=== PATIENT | female | born 1935 | race Caucasian/White ===

== ENCOUNTER 2019-06-19 12:51 | Emergency (ER) | payer MEDICARE, OTHER ==
[2019-06-19 13:45] VITALS: BP 173/71; PULSE 84
[2019-06-19] MEDS ORDERED: Sodium Chloride 0.9% 10 ML Syringe FLUSH PRN (13:47)
[2019-06-19] MEDS ORDERED: Ketorolac 15 MG/ML SDV IVPUSH ONE (13:48)
--- NOTE | 2019-06-19 14:46 | EDM.PDOC ---
ED HPI GENERAL MEDICAL PROBLEM - General Chief Complaint: Back Pain or Injury Stated Complaint: BACK PAIN Time Seen by Provider: 06/19/19 13:41 Source of Information: Reports: Patient, Family History Limitations: Reports: No Limitations - History of Present Illness INITIAL COMMENTS - FREE TEXT/NARRATIVE: The patient presents with low back pain. The pain is more on the right side. It started on Thursday and it is getting worse. She did not injure her back. She does have a history of low back pain with sciatica. She has no fever, chills, cough, chest pain, shortness of breath, abdominal pain, nausea or vomiting. She has no dysuria or hematuria. She has no history of kidney stones. She has no numbness or weakness in he legs. Onset: Gradual Duration: Day(s): Location: Reports: Back Quality: Reports: Sharp Severity: Moderate Improves with: Reports: Immobilization Worsens with: Reports: Movement Context: Denies: Trauma Associated Symptoms: Reports: No Other Symptoms Lower Back Pain Score (Numeric/FACES): 8 - Related Data Allergies Allergy/AdvReac Type Severity Reaction Status Date / Time crab Allergy Swelling Verified 06/19/19 13:45 Iodinated Contrast Media Allergy Itching Verified 06/19/19 13:45 [Iodinated Contrast Media - Oral and] pneumococcal vaccine Allergy Itching Verified 06/19/19 13:45 Home Meds: Home Meds traMADol [Ultram] 50 mg PO Q6H PRN #15 tab 06/19/19 [Rx] Past Medical History [employer]ICE [employer]OKER History: Reports: , Other (See Below) 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 Musculoskeletal History: Reports: Arthritis, Fibromyalgia - Past Surgical History HEENT Surgical History: Reports: Cataract Surgery, Other (See Below) Musculoskeletal Surgical History: Reports: Other (See Below) Social & Family History - Caffeine Use Caffeine Use: Reports: Coffee ED ROS GENERAL - Review of Systems Review Of Systems: See Below Constitutional: Reports: No Symptoms HEENT: Reports: No Symptoms Respiratory: Reports: No Symptoms Cardiovascular: Reports: No Symptoms Endocrine: Reports: No Symptoms GI/Abdominal: Reports: No Symptoms : Reports: No Symptoms Musculoskeletal: Reports: Back Pain Skin: Reports: No Symptoms Neurological: Reports: No Symptoms ED EXAM,LOWER BACK PAIN/INJURY - Physical Exam Exam: See Below Exam Limited By: No Limitations General Appearance: Alert, No Apparent Distress Ears: Normal External Exam Nose: Normal Inspection Head: Atraumatic, Normocephalic Neck: Normal Inspection, Supple, Non-Tender Respiratory/Chest: No Respiratory Distress, Lungs Clear, Normal Breath Sounds Cardiovascular: Regular Rate, Rhythm, No Edema, No Murmur GI/Abdominal: Soft, Non-Tender, No Organomegaly, No Mass Back Exam: Other (Pain upon palpation to the right lower back) Extremities: Normal Inspection Neurological: Alert, Normal Mood/Affect, No Motor/Sensory Deficits, Oriented x 3 Course - Vital Signs Last Recorded V/S: Last Vital Signs Temp 97.5 F 06/19/19 13:40 Pulse 84 06/19/19 13:40 Resp 18 06/19/19 13:40 BP 173/71 H 06/19/19 13:40 Pulse Ox 97 06/19/19 13:40 - Orders/Labs/Meds Orders: Active Orders 24 hr Category Date Time Status Peripheral IV Care [RC] . DIRECTED Care 06/19/19 13:47 Active Sodium Chloride 0.9% [Saline Flush] Med 06/19/19 13:47 Active 10 ml FLUSH ASDIRECTED PRN Peripheral IV Insertion Adult [OM.PC] Stat Oth 06/19/19 13:47 Ordered Medication Orders Sodium Chloride (Saline Flush) 10 ml FLUSH ASDIRECTED PRN PRN Reason: Keep Vein Open Last Admin: 06/19/19 14:57 Dose: 10 ml Labs: Laboratory Tests 06/19/19 06/19/19 06/19/19 Range/Units 14:24 15:00 15:00 WBC 9.58 (3.98-10.04) K/mm3 RBC 3.46 L (3.98-5.22) M/mm3 Hgb 12.0 (11.2-15.7) gm/dl Hct 36.7 (34.1-44.9) % MCV 106.1 H D (79.4-94.8) fl MCH 34.7 H (25.6-32.2) pg MCHC 32.7 (32.2-35.5) g/dl RDW Std Deviation 47.4 H (36.4-46.3) fL Plt Count 294 (182-369) K/mm3 MPV 9.7 (9.4-12.3) fl Neut % (Auto) 67.9 (34.0-71.1) % Lymph % (Auto) 18.7 L (19.3-51.7) % [place] % (Auto) 11.6 (4.7-12.5) % Eos % (Auto) 1.4 (0.7-5.8) Baso % (Auto) 0.2 (0.1-1.2) % Neut # (Auto) 6.51 H (1.56-6.13) K/mm3 Lymph # (Auto) 1.79 (1.18-3.74) K/mm3 [place] # (Auto) 1.11 H (0.24-0.36) K/mm3 Eos # (Auto) 0.13 (0.04-0.36) K/mm3 Baso # (Auto) 0.02 (0.01-0.08) K/mm3 Manual Slide Review Abnormal smear Sodium 137 (136-145) mEq/L Potassium 4.4 (3.5-5.1) mEq/L Chloride 104 (98-107) mEq/L Carbon Dioxide 26 (21-32) mEq/L Anion Gap 11.4 (5-15) BUN 23 H (7-18) mg/dL Creatinine 1.2 H (0.55-1.02) mg/dL Est Cr Clr Drug Dosing 27.98 mL/min Estimated GFR (MDRD) 43 (>60) mL/min BUN/Creatinine Ratio 19.2 H (14-18) Glucose 107 (83-115) mg/dL Calcium 10.2 H (8.5-10.1) mg/dL Total Bilirubin 0.4 (0.2-1.0) mg/dL AST 22 (15-37) U/L ALT 25 (14-59) U/L Alkaline Phosphatase 87 (46-116) U/L Total Protein 7.7 (6.4-8.2) g/dl Albumin 3.5 (3.4-5.0) g/dl Globulin 4.2 gm/dL Albumin/Globulin Ratio 0.8 L (1-2) Urine Color Light yellow (Yellow) Urine Appearance Clear (Clear) Urine pH 6.5 (5.0-8.0) Ur Specific [place] 1.015 (1.005-1.030) Urine Protein Negative (Negative) Urine Glucose (UA) Negative (Negative) Urine Ketones Negative (Negative) Urine Occult Blood Negative (Negative) Urine Nitrite Negative (Negative) Urine Bilirubin Negative (Negative) Urine Urobilinogen 0.2 (0.2-1.0) Ur Leukocyte Esterase Negative (Negative) Urine RBC Not seen (0-5) /hpf Urine WBC Not seen (0-5) /hpf Ur Squamous Epith Cells Not seen (0-5) /hpf Urine Bacteria Rare (FEW) /hpf Urine Mucus Rare (FEW) /hpf Meds: Medications Generic Name Dose Route Start Last Admin Trade Name Freq PRN Reason Stop Dose Admin Sodium Chloride 10 ml 06/19/19 13:47 06/19/19 14:57 Saline Flush FLUSH 10 ml ASDIRECTED PRN Administration Keep Vein Open Discontinued Medications Generic Name Dose Route Start Last Admin Trade Name Freq PRN Reason Stop Dose Admin Ketorolac Tromethamine 15 mg 06/19/19 13:48 06/19/19 14:57 Toradol IVPUSH 06/19/19 13:49 15 mg ONETIME ONE Administration - Re-Assessments/Exams Free Text/Narrative Re-Assessment/Exam: 06/19/19 14:46 I have ordered an IV saline lock, toradol 15mg IV, labs, UA and a CT of her lumbar spine. 06/19/19 16:12 Her CBC looks good. Her creatinine is slightly elevated at 1.2. Her UA shows no UTI or blood. Her CT shows degenerative changes. Mild endplate concavities of T12 without definite acute fracture line. Nothing acute is definitely appreciated. She feels better. I will discharge her home with some ultram as needed. Departure - Departure Time of Disposition: 16:15 Disposition: Home, Self-Care 01 Condition: Good Clinical Impression: Low back pain Qualifiers: Chronicity: acute Back pain laterality: right Sciatica presence: without sciatica Qualified Code(s): M54.5 - Low back pain Thoracic spine fracture Qualifiers: Encounter type: initial encounter Thoracic vertebra fracture level: T12 Fracture type: closed Fracture morphology: other fracture Qualified Code(s): S22.088A - Other fracture of T11-T12 vertebra, initial encounter for closed fracture - Discharge Information *PRESCRIPTION DRUG MONITORING PROGRAM REVIEWED*: No *COPY OF PRESCRIPTION DRUG MONITORING REPORT IN PATIENT JAQUAN: No Prescriptions: traMADol [Ultram] 50 mg PO Q6H PRN #15 tab PRN Reason: Pain Referrals: Octavia Bowman MD [Primary Care Provider] - 1 Week Forms: ED Department Discharge Additional Instructions: Take tylenol as needed for pain. If that does not help, try the ultram 1 pill every 6 hours as needed for pain. It appears you have a mild old compression fracture at T12. Follow up with Dr Bowman and talk about getting an MRI to better characterize the fracture. Please return if you are worse. Sepsis Event Note - Evaluation Sepsis Screening Result: No Definite Risk - Focused Exam Vital Signs: Vital Signs Temp Pulse Resp BP Pulse Ox 06/19/19 13:40 97.5 F 84 18 173/71 H 97 Date Exam was Performed: 06/19/19 Time Exam was Performed: 16:12 - My Orders Last 24 Hours: My Active Orders 06/19/19 13:47 Peripheral IV Care [RC] . DIRECTED Sodium Chloride 0.9% [Saline Flush] 10 ml FLUSH ASDIRECTED PRN Peripheral IV Insertion Adult [OM.PC] Stat - Assessment/Plan Last 24 Hours: My Active Orders 06/19/19 13:47 Peripheral IV Care [RC] . DIRECTED Sodium Chloride 0.9% [Saline Flush] 10 ml FLUSH ASDIRECTED PRN Peripheral IV Insertion Adult [OM.PC] Stat
--- NOTE | 2019-06-19 15:56 | CT ---
CT lumbar spine Technique: Multiple axial sections were obtained from the bottom of T11 inferiorly through the mid to lower sacrum. Reconstructed sagittal and coronal images were reviewed. Comparison: No prior lumbar spine imaging is available. Findings: T11-T12: Posterior disc is preserved. Degenerative apophyseal change is noted. No central canal stenosis is seen. Neural foramina appear to be patent. T12-L1: Endplate concavities are noted of T12 which are both superior and inferior. No definite acute fracture line is appreciated. Disc is slightly narrowed. Posterior disc is preserved. No central canal stenosis or neural foraminal stenosis is seen. Degenerative apophyseal change is seen. L1-2: Posterior disc maintains a concave margin. Slight posterior disc space narrowing is seen. No central canal stenosis or neural foraminal stenosis is seen. Degenerative apophyseal change is seen. L2-3: Slight circumferential disc bulge is seen. Posterior disc maintains a concave margin. Mild degenerative apophyseal change is noted. No central canal stenosis or neural foraminal stenosis is seen. L3-L4: Slight limbus type vertebra is noted off the anterior superior endplate of L3 which is old. Minimal circumferential disc bulge is seen. Posterior disc maintains mostly a planar margin. Moderate degenerative apophyseal change is noted. No central canal stenosis or neural foraminal stenosis is seen. L4-L5: Severe disc space narrowing is noted with vacuum disc phenomena. Minimal spondylolisthesis is seen measuring 5 mm. Severe degenerative apophyseal change is seen. Mild deformity is noted of the thecal sac due to degenerative change projecting into the central canal from the apophyseal joints on both sides. No central canal stenosis is otherwise seen. Neural foramina are felt to be patent where the nerve roots exit. L5-S1: Severe degenerative apophyseal change is noted. Minimal spondylolisthesis by several millimeters. No central canal stenosis or neural foraminal stenosis is seen. Bony structures are osteopenic. No acute fracture is appreciated. Scoliosis is noted. Impression: 1. Degenerative change as noted above. 2. Mild endplate concavities of T12 without definite acute fracture line. 3. Nothing acute is definitely appreciated. Diagnostic code #3 This report was dictated in [place] Standard Time
== END 2019-06-19 16:35 | disposition home or self-care (01) ==
LOC: JD.ED 12:51
DX: M84.48XA Pathological fracture, other site, initial encounter for fracture (principal); M54.5 Low back pain; M19.90 Unspecified osteoarthritis, unspecified site; Z91.013 Allergy to seafood; Z91.041 Radiographic dye allergy status; Z88.7 Allergy status to serum and vaccine
CPT/HCPCS: 36415; 72131; 80053; 81001; 85025; 96374; 99284; J1885

== ENCOUNTER 2020-08-06 10:44 | Inpatient (IN) | payer MEDICARE, OTHER ==
[2020-08-06] MEDS ORDERED: Sodium Chloride 0.9% 1,000 ML IV STA (11:11)
[2020-08-06] MEDS ORDERED: Ondansetron 4 MG/2 ML SDV IVPUSH ONE (11:11)
[2020-08-06] MEDS ORDERED: cefTRIAXone 2 GM in Sodium Chloride 0.9% 100 ML IV ONE (11:13)
--- NOTE | 2020-08-06 11:14 | EDM.PDOC ---
<Lilly Peters - Last Filed: 08/06/20 13:47> ED HPI GENERAL MEDICAL PROBLEM - General Chief Complaint: Genitourinary Problem Stated Complaint: [facility] Time Seen by Provider: 08/06/20 10:47 Source of Information: Reports: Patient History Limitations: Reports: No Limitations - History of Present Illness INITIAL COMMENTS - FREE TEXT/NARRATIVE: Satya is a pleasant 85 year old female who presents to the ED with complaints of a urinary tract infection and weakness. She states she was diagnosed with a UTI on Thursday and was prescribed Cephalexin. She states this antibiotic makes her nauseated. She also complains of decreased appetite, dehydration, weakness and fatigue. She states she hasn't eaten anything since yesterday at around noon. She states she does have some residual UTI symptoms but they have greatly decreased since starting the antibiotic. She also admits to having chronic diarrhea. She denies any recent fever, chills, dyspnea, cough. Abdominal Pain Score (Numeric/FACES): 8 - Related Data Allergies Allergy/AdvReac Type Severity Reaction Status Date / Time crab Allergy Swelling Verified 08/06/20 10:54 Iodinated Contrast Media Allergy Itching Verified 08/06/20 10:54 [Iodinated Contrast Media - Oral and] pneumococcal vaccine Allergy Itching Verified 08/06/20 10:54 Home Meds: Home Meds Acetaminophen/Codeine [Tylenol with Codeine No.3 300MG/30MG] 1 tab PO Q8HR PRN 08/06/20 [History] Amitriptyline [Elavil] 25 mg PO BEDTIME 08/06/20 [History] Aspirin [Harry Chewable Aspirin] 81 mg PO DAILY 08/06/20 [History] Calcitonin ([place]) [Miacalcin Nasal [place]] 1 spray SARAH DAILY 08/06/20 [History] Cholecalciferol (Vitamin D3) [Vitamin D3] 1,000 unit PO DAILY 08/06/20 [History] Cholestyramine (With Sugar) [Questran Powder] 4 gm PO DAILY 08/06/20 [History] Dextran 70/Hypromellose [Artificial Tears] 1 - 2 drop EYEBOTH ASDIRECTED PRN 08/06/20 [History] Ezetimibe 10 mg PO DAILY 08/06/20 [History] Famotidine 20 mg PO DAILY 08/06/20 [History] Formula Liquid 1 dose PO ASDIRECTED 08/06/20 [History] Iron Polysaccharides-Vitamin C 1 cap PO DAILY 08/06/20 [History] Levothyroxine [Synthroid] 50 - 100 mcg PO ASDIRECTED 08/06/20 [History] Metoprolol Succinate [Toprol XL] 25 mg PO DAILY 08/06/20 [History] Multivitamin [Daily-Servando] 1 tab PO DAILY 08/06/20 [History] Olmesartan Medoxomil [Benicar] 20 mg PO DAILY 08/06/20 [History] Ondansetron [Zofran ODT] 4 mg PO DAILY 08/06/20 [History] Pravastatin [Pravachol] 10 mg PO BEDTIME 08/06/20 [History] Prednisolone Acetate/Pf [Prednisolone Acet 1% Eye Drop] 1 drop EYEBOTH ASDIRECTED 08/06/20 [History] cephALEXin [Cephalexin] 500 mg PO BID 08/06/20 [History] cycloSPORINE [Restasis Multidose] 1 drop EYEBOTH BID 08/06/20 [History] hydroCHLOROthiazide [Hydrochlorothiazide] 25 mg PO DAILY 08/06/20 [History] valACYclovir [Valtrex] 1,000 mg PO DAILY 08/06/20 [History] Past Medical History HEENT History: Reports: Cataract Cardiovascular History: Reports: High Cholesterol, Hypertension 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: , Other (See Below) Other BAND INSTRUMENT REPAIRER History: hysterectomy Musculoskeletal History: Reports: Arthritis, Fibromyalgia - Infectious Disease History Infectious Disease History: Reports: Chicken Pox, Measles, Shingles - Past Surgical History HEENT Surgical History: Reports: Cataract Surgery, Other (See Below) Other HEENT Surgeries/Procedures: 4 corneal transplants GI Surgical History: Reports: Appendectomy, Colon, Colonoscopy Female Surgical History: Reports: Hysterectomy Neurological Surgical History: Reports: C-Spine Musculoskeletal Surgical History: Reports: Other (See Below) Other Musculoskeletal Surgeries/Procedures:: neck fusion Social & Family History - Caffeine Use Caffeine Use: Reports: Coffee ED ROS GENERAL - Review of Systems Review Of Systems: Comprehensive ROS is negative, except as noted in HPI. Constitutional: Reports: Weakness, Decreased Appetite HEENT: Reports: No Symptoms Respiratory: Reports: No Symptoms Cardiovascular: Reports: No Symptoms Endocrine: Reports: No Symptoms GI/Abdominal: Reports: Diarrhea (Chronic), Nausea : Reports: Dysuria, Frequency, Pain Musculoskeletal: Reports: No Symptoms Skin: Reports: No Symptoms Neurological: Reports: Dizziness Psychiatric: Reports: No Symptoms Hematologic/Lymphatic: Reports: No Symptoms Immunologic: Reports: No Symptoms ED EXAM, RENAL/ - Physical Exam Exam: See Below Exam Limited By: No Limitations General Appearance: Alert, WD/WN, No Apparent Distress Head: Atraumatic, Normocephalic Neck: Normal Inspection, Supple, Non-Tender, Full Range of Motion Respiratory/Chest: No Respiratory Distress, Lungs Clear, Normal Breath Sounds, No Accessory Muscle Use, Chest Non-Tender Cardiovascular: Normal Peripheral Pulses, Regular Rate, Rhythm, No Edema, No Gallop, No Murmur GI/Abdominal: Normal Bowel Sounds, Soft, Non-Tender, No Distention, No Abnormal Bruit, No Mass Back Exam: Normal Inspection, Full Range of Motion, NT Extremities: Normal Inspection, Normal Range of Motion, Non-Tender, Normal Capillary Refill, No Pedal Edema Neurological: Alert, Oriented, CN II-XII Intact, Normal Cognition, Normal Gait, No Motor/Sensory Deficits Psychiatric: Normal Affect, Normal Mood Skin Exam: Warm, Dry, Intact, Normal Color, No Rash Lymphatic: No Adenopathy Course - Re-Assessments/Exams Free Text/Narrative Re-Assessment/Exam: 08/06/20 11:16 Satya is an 85 year old female presenting to the ED with complains of UTI and weakness. She was seen at the walk in clinic on Thursday due to increased weakness, fatigue and UTI symptoms, and was given Cephalexin. Her UTI symptoms have greatly improved. She complains of dehydration and states she has chronic diarrhea. We will get routine labs, UA, blood cultures x2, PT/INR, lactic acid, lipase, BNP, Rocephin and Zofran. Her vitals are all within normal limits with HR being 91, BP being 132/70 and O2 being 100% on RA. Departure - Departure Disposition: Refer to Observation Clinical Impression: Nausea, Dehydration, Renal insufficiency - Discharge Information Sepsis Event Note (ED) - Evaluation Sepsis Screening Result: No Definite Risk <Fernando Pinedo - Last Filed: 08/06/20 14:02> Course - Vital Signs Last Recorded V/S: Last Vital Signs Temp 97.6 F 08/06/20 10:49 Pulse 91 08/06/20 13:30 Resp 19 08/06/20 13:30 BP 146/61 H 08/06/20 13:30 Pulse Ox 100 08/06/20 13:30 - Orders/Labs/Meds Orders: Active Orders 24 hr Category Date Time Status Peripheral IV Care [RC] . DIRECTED Care 08/06/20 11:11 Active CULTURE BLOOD [BC] Stat Lab 08/06/20 12:00 Received CULTURE BLOOD [BC] Stat Lab 08/06/20 12:05 Received Sodium Chloride 0.9% [Saline Flush] Med 08/06/20 11:11 Active 10 ml FLUSH ASDIRECTED PRN Blood Culture x2 Reflex Set [OM.PC] Stat Oth 08/06/20 11:13 Ordered ED Antiemetic Medication Reflex [OM.PC] Stat Oth 08/06/20 11:12 Ordered Peripheral IV Insertion Adult [OM.PC] Stat Ot 08/06/20 11:11 Ordered Medication Orders Sodium Chloride (Saline Flush) 10 ml FLUSH ASDIRECTED PRN PRN Reason: Keep Vein Open Last Admin: 08/06/20 11:19 Dose: 10 ml Documented by: LUIS Labs: Laboratory Tests 08/06/20 08/06/20 08/06/20 Range/Units 11:23 11:23 11:23 WBC 14.31 H (3.98-10.04) K/mm3 RBC 3.19 L (3.98-5.22) M/mm3 Hgb 11.3 (11.2-15.7) gm/dl Hct 34.5 (34.1-44.9) % MCV 108.2 H (79.4-94.8) fl MCH 35.4 H (25.6-32.2) pg MCHC 32.8 (32.2-35.5) g/dl RDW Std Deviation 51.1 H (36.4-46.3) fL Plt Count 415 H D (182-369) K/mm3 MPV 9.9 (9.4-12.3) fl Neut % (Auto) 76.2 H (34.0-71.1) % Lymph % (Auto) 14.6 L (19.3-51.7) % [place] % (Auto) 7.4 (4.7-12.5) % Eos % (Auto) 0.4 L (0.7-5.8) Baso % (Auto) 0.1 (0.1-1.2) % Neut # (Auto) 10.90 H (1.56-6.13) K/mm3 Lymph # (Auto) 2.09 (1.18-3.74) K/mm3 [place] # (Auto) 1.06 H (0.24-0.36) K/mm3 Eos # (Auto) 0.06 (0.04-0.36) K/mm3 Baso # (Auto) 0.02 (0.01-0.08) K/mm3 Manual Slide Review Abnormal smear PT 10.9 (9.7-12.0) SECONDS INR 1.02 Sodium 139 (136-145) mEq/L Potassium 4.1 (3.5-5.1) mEq/L Chloride 105 (98-107) mEq/L Carbon Dioxide 18 L (21-32) mEq/L Anion Gap 20.1 H (5-15) BUN 51 H D (7-18) mg/dL Creatinine 1.8 H (0.55-1.02) mg/dL Est Cr Clr Drug Dosing 16.06 mL/min Estimated GFR (MDRD) 27 (>60) mL/min BUN/Creatinine Ratio 28.3 H (14-18) Glucose 132 H (83-115) mg/dL Lactic Acid (0.4-2.0) mmol/L Calcium 10.2 H (8.5-10.1) mg/dL Total Bilirubin 0.4 (0.2-1.0) mg/dL AST 49 H (15-37) U/L ALT 108 H (14-59) U/L Alkaline Phosphatase 147 H (46-116) U/L NT-Pro-B Natriuret Pep (0-450) pg/mL Total Protein 7.7 (6.4-8.2) g/dl Albumin 3.3 L (3.4-5.0) g/dl Globulin 4.4 gm/dL Albumin/Globulin Ratio 0.8 L (1-2) Lipase 186 (73-393) U/L Urine Color (Yellow) Urine Appearance (Clear) Urine pH (5.0-8.0) Ur Specific [place] (1.005-1.030) Urine Protein (Negative) Urine Glucose (UA) (Negative) Urine Ketones (Negative) Urine Occult Blood (Negative) Urine Nitrite (Negative) Urine Bilirubin (Negative) Urine Urobilinogen (0.2-1.0) Ur Leukocyte Esterase (Negative) U Hyaline Cast (Auto) (0-5) /lpf Urine RBC (0-5) /hpf Urine WBC (0-5) /hpf Ur Epithelial Cells (0-5) /hpf Urine Bacteria (FEW) /hpf Urine Mucus (FEW) /hpf SARS-CoV-2 RNA (SONJA) (NEGATIVE) 08/06/20 08/06/20 08/06/20 Range/Units 11:23 12:05 12:27 WBC (3.98-10.04) K/mm3 RBC (3.98-5.22) M/mm3 Hgb (11.2-15.7) gm/dl Hct (34.1-44.9) % MCV (79.4-94.8) fl MCH (25.6-32.2) pg MCHC (32.2-35.5) g/dl RDW Std Deviation (36.4-46.3) fL Plt Count (182-369) K/mm3 MPV (9.4-12.3) fl Neut % (Auto) (34.0-71.1) % Lymph % (Auto) (19.3-51.7) % [place] % (Auto) (4.7-12.5) % Eos % (Auto) (0.7-5.8) Baso % (Auto) (0.1-1.2) % Neut # (Auto) (1.56-6.13) K/mm3 Lymph # (Auto) (1.18-3.74) K/mm3 [place] # (Auto) (0.24-0.36) K/mm3 Eos # (Auto) (0.04-0.36) K/mm3 Baso # (Auto) (0.01-0.08) K/mm3 Manual Slide Review PT (9.7-12.0) SECONDS INR Sodium (136-145) mEq/L Potassium (3.5-5.1) mEq/L Chloride (98-107) mEq/L Carbon Dioxide (21-32) mEq/L Anion Gap (5-15) BUN (7-18) mg/dL Creatinine (0.55-1.02) mg/dL Est Cr Clr Drug Dosing mL/min Estimated GFR (MDRD) (>60) mL/min BUN/Creatinine Ratio (14-18) Glucose (83-115) mg/dL Lactic Acid 1.0 (0.4-2.0) mmol/L Calcium (8.5-10.1) mg/dL Total Bilirubin (0.2-1.0) mg/dL AST (15-37) U/L ALT (14-59) U/L Alkaline Phosphatase (46-116) U/L NT-Pro-B Natriuret Pep 1268 H (0-450) pg/mL Total Protein (6.4-8.2) g/dl Albumin (3.4-5.0) g/dl Globulin gm/dL Albumin/Globulin Ratio (1-2) Lipase (73-393) U/L Urine Color Yellow (Yellow) Urine Appearance Clear (Clear) Urine pH 6.0 (5.0-8.0) Ur Specific [place] 1.025 (1.005-1.030) Urine Protein Trace H (Negative) Urine Glucose (UA) Negative (Negative) Urine Ketones Negative (Negative) Urine Occult Blood Negative (Negative) Urine Nitrite Negative (Negative) Urine Bilirubin Negative (Negative) Urine Urobilinogen 0.2 (0.2-1.0) Ur Leukocyte Esterase Negative (Negative) U Hyaline Cast (Auto) 0-5 (0-5) /lpf Urine RBC Not seen (0-5) /hpf Urine WBC 0-5 (0-5) /hpf Ur Epithelial Cells Not seen (0-5) /hpf Urine Bacteria Rare (FEW) /hpf Urine Mucus Rare (FEW) /hpf SARS-CoV-2 RNA (SONJA) (NEGATIVE) 08/06/20 Range/Units 12:27 WBC (3.98-10.04) K/mm3 RBC (3.98-5.22) M/mm3 Hgb (11.2-15.7) gm/dl Hct (34.1-44.9) % MCV (79.4-94.8) fl MCH (25.6-32.2) pg MCHC (32.2-35.5) g/dl RDW Std Deviation (36.4-46.3) fL Plt Count (182-369) K/mm3 MPV (9.4-12.3) fl Neut % (Auto) (34.0-71.1) % Lymph % (Auto) (19.3-51.7) % [place] % (Auto) (4.7-12.5) % Eos % (Auto) (0.7-5.8) Baso % (Auto) (0.1-1.2) % Neut # (Auto) (1.56-6.13) K/mm3 Lymph # (Auto) (1.18-3.74) K/mm3 [place] # (Auto) (0.24-0.36) K/mm3 Eos # (Auto) (0.04-0.36) K/mm3 Baso # (Auto) (0.01-0.08) K/mm3 Manual Slide Review PT (9.7-12.0) SECONDS INR Sodium (136-145) mEq/L Potassium (3.5-5.1) mEq/L Chloride (98-107) mEq/L Carbon Dioxide (21-32) mEq/L Anion Gap (5-15) BUN (7-18) mg/dL Creatinine (0.55-1.02) mg/dL Est Cr Clr Drug Dosing mL/min Estimated GFR (MDRD) (>60) mL/min BUN/Creatinine Ratio (14-18) Glucose (83-115) mg/dL Lactic Acid (0.4-2.0) mmol/L Calcium (8.5-10.1) mg/dL Total Bilirubin (0.2-1.0) mg/dL AST (15-37) U/L ALT (14-59) U/L Alkaline Phosphatase (46-116) U/L NT-Pro-B Natriuret Pep (0-450) pg/mL Total Protein (6.4-8.2) g/dl Albumin (3.4-5.0) g/dl Globulin gm/dL Albumin/Globulin Ratio (1-2) Lipase (73-393) U/L Urine Color (Yellow) Urine Appearance (Clear) Urine pH (5.0-8.0) Ur Specific [place] (1.005-1.030) Urine Protein (Negative) Urine Glucose (UA) (Negative) Urine Ketones (Negative) Urine Occult Blood (Negative) Urine Nitrite (Negative) Urine Bilirubin (Negative) Urine Urobilinogen (0.2-1.0) Ur Leukocyte Esterase (Negative) U Hyaline Cast (Auto) (0-5) /lpf Urine RBC (0-5) /hpf Urine WBC (0-5) /hpf Ur Epithelial Cells (0-5) /hpf Urine Bacteria (FEW) /hpf Urine Mucus (FEW) /hpf SARS-CoV-2 RNA (SONJA) Negative (NEGATIVE) Meds: Medications Generic Name Dose Route Start Last Admin Trade Name Freq PRN Reason Stop Dose Admin Sodium Chloride 10 ml 08/06/20 11:11 08/06/20 11:19 Saline Flush FLUSH 10 ml ASDIRECTED PRN Administration Keep Vein Open Discontinued Medications Generic Name Dose Route Start Last Admin Trade Name Freq PRN Reason Stop Dose Admin Ceftriaxone Sodium 2 gm/ 100 mls @ 200 mls/hr 08/06/20 11:13 08/06/20 12:12 Sodium Chloride IV 08/06/20 11:42 200 mls/hr ONETIME ONE Administration Sodium Chloride 1,000 mls @ 1,000 mls/hr 08/06/20 11:11 08/06/20 11:30 Normal Saline IV 08/06/20 12:10 1,000 mls/hr .BOLUS STA Administration Ondansetron HCl 4 mg 08/06/20 11:11 08/06/20 11:30 Zofran IVPUSH 08/06/20 11:12 4 mg ONETIME ONE Administration - Re-Assessments/Exams Free Text/Narrative Re-Assessment/Exam: 08/06/20 13:48 I examined the patient myself and I agree with Lilly's assessment and plan. I ordered an IV NS 1L bolus, labs, UA, blood cultures and COVID 19 test. Her WBC was elevated at 14.31. Her creatinine was 1.8. That is elevated from her baseline of 1.2. Her glucose is 132. Her lactic acid is normal at 1. Her AST was elevated at 49. Her ALT was elevated at 108. Her alk phos was elevated at 141. Her BNP was elevated at 1268. Her lipase is normal. Her COVID 19 is negative. Her UA shows no UTI anymore. I feel she is dehydrated from not being able to eat the past couple of day. I called Dr Gustafson and he agreed to the admission. Departure - Departure Time of Disposition: 14:05 Condition: Good Sepsis Event Note (ED) - Focused Exam Vital Signs: Vital Signs Temp Pulse Resp BP Pulse Ox 08/06/20 10:49 97.6 F 97 18 154/69 H 98 - My Orders Last 24 Hours: My Active Orders 08/06/20 11:11 Peripheral IV Care [RC] . DIRECTED Sodium Chloride 0.9% [Saline Flush] 10 ml FLUSH ASDIRECTED PRN Peripheral IV Insertion Adult [OM.PC] Stat 08/06/20 11:12 ED Antiemetic Medication Reflex [OM.PC] Stat 08/06/20 11:13 Blood Culture x2 Reflex Set [OM.PC] Stat 08/06/20 12:00 CULTURE BLOOD [BC] Stat 08/06/20 12:05 CULTURE BLOOD [BC] Stat - Assessment/Plan Last 24 Hours: My Active Orders 08/06/20 11:11 Peripheral IV Care [RC] . DIRECTED Sodium Chloride 0.9% [Saline Flush] 10 ml FLUSH ASDIRECTED PRN Peripheral IV Insertion Adult [OM.PC] Stat 08/06/20 11:12 ED Antiemetic Medication Reflex [OM.PC] Stat 08/06/20 11:13 Blood Culture x2 Reflex Set [OM.PC] Stat 08/06/20 12:00 CULTURE BLOOD [BC] Stat 08/06/20 12:05 CULTURE BLOOD [BC] Stat
[2020-08-06] MEDS: Sodium Chloride 0.9% 10 ML Syringe FLUSH PRN (11:19)
--- NOTE | 2020-08-06 13:34 | PCM.HP.2 ---
H&P History of Present Illness - General Date of Service: 08/06/20 Source of Information: Patient, Old Records, Provider, RN, RN Notes Reviewed History Limitations: Reports: No Limitations - History of Present Illness Initial Comments - Free Text/Narative: This is an 85-year-old female who presents to ED via [facility] on 08/06/2020 with complaints of urinary tract infection weakness. She reports she was diagnosed with a UTI on Thursday at the walk-in clinic and was prescribed cephalexin. She states she has been nauseous since then with decreased appetite, dehydration, weakness, and fatigue. She reports no p.o. intake since yesterday around noon. She reports she does have some residual UTI symptoms but they have greatly improved since starting her antibiotic. She also reports she has chronic diarrhea. She denies any recent fever, dyspnea, or cough. In the ED temp was 97.6 Fahrenheit. Pulse 97. Respirations 18. Blood pressure 154/69. Pulse ox 98%. Labs were obtained showing a WBC of 14.31. Hemoglobin of 11.3. Platelets of 415,000. Neutrophils are elevated at 10.90. INR was 1.02. Sodium 139. Potassium 4.1. Chloride 105. Carbon dioxide was low at 18. Anion gap was 20.1. BUN is 51. Creatinine 1.8. GFR was 27. Glucose 132. Lactic acid 1.0. Calcium 10.2. AST was 49, ALT 108, alkaline phosphatase 147. proBNP was 1268. Albumin was 3.3. Lipase was 186. UA was obtained and was negative however trace protein was noted. She was started on 2 g of IV Rocephin and given a 1 L fluid bolus. Also given Zofran for nausea. Blood cultures were obtained and were pending. SARS-CoV-2 RNA screen was negative. He carries a history of HLD, hypertension, arthritis, fibromyalgia. Primary care provider is Dr. Bowman. She subsequently admitted observation status for dehydration secondary to antibiotic intolerance and UTI. Abdominal Pain Score (Numeric/FACES): 8 - Related Data Allergies/Adverse Reactions: Allergies Allergy/AdvReac Type Severity Reaction Status Date / Time crab Allergy Swelling Verified 08/06/20 10:54 Iodinated Contrast Media Allergy Itching Verified 08/06/20 10:54 [Iodinated Contrast Media - Oral and] pneumococcal vaccine Allergy Itching Verified 08/06/20 10:54 Home Medications: Home Meds Acetaminophen/Codeine [Tylenol with Codeine No.3 300MG/30MG] 1 tab PO Q8HR PRN 08/06/20 [History] Amitriptyline [Elavil] 25 mg PO BEDTIME 08/06/20 [History] Aspirin [Harry Chewable Aspirin] 81 mg PO DAILY 08/06/20 [History] Calcitonin ([place]) [Miacalcin Nasal [place]] 1 spray SARAH DAILY 08/06/20 [History] Cholecalciferol (Vitamin D3) [Vitamin D3] 1,000 unit PO DAILY 08/06/20 [History] Cholestyramine (With Sugar) [Questran Powder] 4 gm PO DAILY 08/06/20 [History] Dextran 70/Hypromellose [Artificial Tears] 1 - 2 drop EYEBOTH ASDIRECTED PRN 07/26 [History] Ezetimibe 10 mg PO DAILY 08/06/20 [History] Famotidine 20 mg PO DAILY 08/06/20 [History] Formula Liquid 1 dose PO ASDIRECTED 08/06/20 [History] Iron Polysaccharides-Vitamin C 1 cap PO DAILY 08/06/20 [History] Levothyroxine [Synthroid] 50 - 100 mcg PO ASDIRECTED 08/06/20 [History] Metoprolol Succinate [Toprol XL] 25 mg PO DAILY 08/06/20 [History] Multivitamin [Daily-Servando] 1 tab PO DAILY 08/06/20 [History] Olmesartan Medoxomil [Benicar] 20 mg PO DAILY 08/06/20 [History] Ondansetron [Zofran ODT] 4 mg PO DAILY 08/06/20 [History] Pravastatin [Pravachol] 10 mg PO BEDTIME 08/06/20 [History] Prednisolone Acetate/Pf [Prednisolone Acet 1% Eye Drop] 1 drop EYEBOTH ASDIRECTED 08/06/20 [History] cephALEXin [Cephalexin] 500 mg PO BID 08/06/20 [History] cycloSPORINE [Restasis Multidose] 1 drop EYEBOTH BID 08/06/20 [History] hydroCHLOROthiazide [Hydrochlorothiazide] 25 mg PO DAILY 08/06/20 [History] valACYclovir [Valtrex] 1,000 mg PO DAILY 08/06/20 [History] Past Medical History HEENT History: Reports: Cataract Cardiovascular History: Reports: High Cholesterol, Hypertension [employer] History: Reports: , Other (See Below) Other OB/BYN History: hysterectomy Musculoskeletal History: Reports: Arthritis, Fibromyalgia - Infectious Disease History Infectious Disease History: Reports: Chicken Pox, Measles, Shingles - Past Surgical History HEENT Surgical History: Reports: Cataract Surgery, Other (See Below) Other HEENT Surgeries/Procedures: 4 corneal transplants GI Surgical History: Reports: Appendectomy, Colon, Colonoscopy Female Surgical History: Reports: Hysterectomy Neurological Surgical History: Reports: C-Spine Musculoskeletal Surgical History: Reports: Other (See Below) Other Musculoskeletal Surgeries/Procedures:: neck fusion Social & Family History - Tobacco Use Tobacco Use Status *Q: Never Tobacco User - Caffeine Use Caffeine Use: Reports: Coffee - Recreational Drug Use Recreational Drug Use: No H&P Review of Systems - Review of Systems: Review Of Systems: See Below General: Reports: No Symptoms, Chills, Weakness, Fatigue, Decreased Appetite. Denies: Fever, Malaise HEENT: Reports: No Symptoms. Denies: Headaches, Sore Throat Pulmonary: Reports: No Symptoms. Denies: Shortness of Breath, Wheezing, Pleuritic Chest Pain, Cough, Sputum, Hemoptysis Cardiovascular: Reports: No Symptoms. Denies: Chest Pain, Palpitations, Dyspnea on Exertion, Edema Gastrointestinal: Reports: Diarrhea (chronic), Nausea (waxes and wanes ). Denies: Abdominal Pain, Constipation, Vomiting Genitourinary: Reports: No Symptoms. Denies: Pain Musculoskeletal: Reports: No Symptoms Skin: Reports: No Symptoms Psychiatric: Reports: No Symptoms. Denies: Confusion Neurological: Reports: Difficulty Walking, Weakness, Gait Disturbance. Denies: Pre-Existing Deficit Hematologic/Lymphatic: Reports: No Symptoms Immunologic: Reports: No Symptoms Exam - Exam Exam: See Below - Vital Signs Vital Signs: Last Vital Signs Temp 97.6 F 08/06/20 10:49 Pulse 97 08/06/20 10:49 Resp 18 08/06/20 10:49 BP 154/69 H 08/06/20 10:49 Pulse Ox 98 08/06/20 10:49 Weight: 100 lb - Exam Quality Assessment: DVT Prophylaxis General: Alert, Oriented, Cooperative. No: Mild Distress HEENT: Conjunctiva Clear, EACs Clear, Posterior Pharynx Clear. No: Mucosa Moist & [place] (dry) Neck: Supple, Trachea Midline Lungs: Clear to Auscultation, Normal Respiratory Effort Cardiovascular: Regular Rate, Regular Rhythm GI/Abdominal Exam: Normal Bowel Sounds, Soft, Non-Tender, No Distention, No Abnormal Bruit, No Mass (Female) Exam: Deferred Rectal (Female) Exam: Deferred Back Exam: Normal Inspection, Full Range of Motion. No: CVA Tenderness (L), CVA Tenderness (R) Extremities: Normal Inspection, Normal Range of Motion, Non-Tender, No Pedal Edema, Normal Capillary Refill Skin: Warm, Dry, Intact Neurological: Cranial Nerves Intact (grossly ) Neuro Extensive - Mental Status: Alert, Oriented x3, Normal Mood/Affect - Patient Data Lab Results Last 24 hrs: Laboratory Results - last 24 hr 08/06/20 08/06/20 08/06/20 Range/Units 11:23 11:23 11:23 WBC 14.31 H (3.98-10.04) K/mm3 RBC 3.19 L (3.98-5.22) M/mm3 Hgb 11.3 (11.2-15.7) gm/dl Hct 34.5 (34.1-44.9) % MCV 108.2 H (79.4-94.8) fl MCH 35.4 H (25.6-32.2) pg MCHC 32.8 (32.2-35.5) g/dl RDW Std Deviation 51.1 H (36.4-46.3) fL Plt Count 415 H D (182-369) K/mm3 MPV 9.9 (9.4-12.3) fl Neut % (Auto) 76.2 H (34.0-71.1) % Lymph % (Auto) 14.6 L (19.3-51.7) % [place] % (Auto) 7.4 (4.7-12.5) % Eos % (Auto) 0.4 L (0.7-5.8) Baso % (Auto) 0.1 (0.1-1.2) % Neut # (Auto) 10.90 H (1.56-6.13) K/mm3 Lymph # (Auto) 2.09 (1.18-3.74) K/mm3 [place] # (Auto) 1.06 H (0.24-0.36) K/mm3 Eos # (Auto) 0.06 (0.04-0.36) K/mm3 Baso # (Auto) 0.02 (0.01-0.08) K/mm3 Manual Slide Review Abnormal smear PT 10.9 (9.7-12.0) SECONDS INR 1.02 Sodium 139 (136-145) mEq/L Potassium 4.1 (3.5-5.1) mEq/L Chloride 105 (98-107) mEq/L Carbon Dioxide 18 L (21-32) mEq/L Anion Gap 20.1 H (5-15) BUN 51 H D (7-18) mg/dL Creatinine 1.8 H (0.55-1.02) mg/dL Est Cr Clr Drug Dosing 16.06 mL/min Estimated GFR (MDRD) 27 (>60) mL/min BUN/Creatinine Ratio 28.3 H (14-18) Glucose 132 H (83-115) mg/dL Lactic Acid (0.4-2.0) mmol/L Calcium 10.2 H (8.5-10.1) mg/dL Total Bilirubin 0.4 (0.2-1.0) mg/dL AST 49 H (15-37) U/L ALT 108 H (14-59) U/L Alkaline Phosphatase 147 H (46-116) U/L NT-Pro-B Natriuret Pep (0-450) pg/mL Total Protein 7.7 (6.4-8.2) g/dl Albumin 3.3 L (3.4-5.0) g/dl Globulin 4.4 gm/dL Albumin/Globulin Ratio 0.8 L (1-2) Lipase 186 (73-393) U/L Urine Color (Yellow) Urine Appearance (Clear) Urine pH (5.0-8.0) Ur Specific [place] (1.005-1.030) Urine Protein (Negative) Urine Glucose (UA) (Negative) Urine Ketones (Negative) Urine Occult Blood (Negative) Urine Nitrite (Negative) Urine Bilirubin (Negative) Urine Urobilinogen (0.2-1.0) Ur Leukocyte Esterase (Negative) U Hyaline Cast (Auto) (0-5) /lpf Urine RBC (0-5) /hpf Urine WBC (0-5) /hpf Ur Epithelial Cells (0-5) /hpf Urine Bacteria (FEW) /hpf Urine Mucus (FEW) /hpf 08/06/20 08/06/20 08/06/20 Range/Units 11:23 12:05 12:27 WBC (3.98-10.04) K/mm3 RBC (3.98-5.22) M/mm3 Hgb (11.2-15.7) gm/dl Hct (34.1-44.9) % MCV (79.4-94.8) fl MCH (25.6-32.2) pg MCHC (32.2-35.5) g/dl RDW Std Deviation (36.4-46.3) fL Plt Count (182-369) K/mm3 MPV (9.4-12.3) fl Neut % (Auto) (34.0-71.1) % Lymph % (Auto) (19.3-51.7) % [place] % (Auto) (4.7-12.5) % Eos % (Auto) (0.7-5.8) Baso % (Auto) (0.1-1.2) % Neut # (Auto) (1.56-6.13) K/mm3 Lymph # (Auto) (1.18-3.74) K/mm3 [place] # (Auto) (0.24-0.36) K/mm3 Eos # (Auto) (0.04-0.36) K/mm3 Baso # (Auto) (0.01-0.08) K/mm3 Manual Slide Review PT (9.7-12.0) SECONDS INR Sodium (136-145) mEq/L Potassium (3.5-5.1) mEq/L Chloride (98-107) mEq/L Carbon Dioxide (21-32) mEq/L Anion Gap (5-15) BUN (7-18) mg/dL Creatinine (0.55-1.02) mg/dL Est Cr Clr Drug Dosing mL/min Estimated GFR (MDRD) (>60) mL/min BUN/Creatinine Ratio (14-18) Glucose (83-115) mg/dL Lactic Acid 1.0 (0.4-2.0) mmol/L Calcium (8.5-10.1) mg/dL Total Bilirubin (0.2-1.0) mg/dL AST (15-37) U/L ALT (14-59) U/L Alkaline Phosphatase (46-116) U/L NT-Pro-B Natriuret Pep 1268 H (0-450) pg/mL Total Protein (6.4-8.2) g/dl Albumin (3.4-5.0) g/dl Globulin gm/dL Albumin/Globulin Ratio (1-2) Lipase (73-393) U/L Urine Color Yellow (Yellow) Urine Appearance Clear (Clear) Urine pH 6.0 (5.0-8.0) Ur Specific [place] 1.025 (1.005-1.030) Urine Protein Trace H (Negative) Urine Glucose (UA) Negative (Negative) Urine Ketones Negative (Negative) Urine Occult Blood Negative (Negative) Urine Nitrite Negative (Negative) Urine Bilirubin Negative (Negative) Urine Urobilinogen 0.2 (0.2-1.0) Ur Leukocyte Esterase Negative (Negative) U Hyaline Cast (Auto) 0-5 (0-5) /lpf Urine RBC Not seen (0-5) /hpf Urine WBC 0-5 (0-5) /hpf Ur Epithelial Cells Not seen (0-5) /hpf Urine Bacteria Rare (FEW) /hpf Urine Mucus Rare (FEW) /hpf Result Diagrams: 08/06/20 11:23 08/06/20 11:23 Sepsis Event Note - Evaluation Sepsis Screening Result: No Definite Risk - Focused Exam Vital Signs: Vital Signs Temp Pulse Resp BP Pulse Ox 08/06/20 10:49 97.6 F 97 18 154/69 H 98 - Problem List (1) UTI (urinary tract infection) SNOMED Code(s): 66451702 ICD Code: N39.0 - URINARY TRACT INFECTION, SITE NOT SPECIFIED Status: Acute Priority: High Current Visit: Yes Qualifiers: Urinary tract infection type: acute cystitis Hematuria presence: without hematuria Qualified Code(s): N30.00 - Acute cystitis without hematuria (2) Nausea SNOMED Code(s): 993459976 ICD Code: R11.0 - NAUSEA Status: Acute Priority: High Current Visit: Yes (3) Dehydration SNOMED Code(s): 05220469 ICD Code: E86.0 - DEHYDRATION Status: Acute Priority: High Current Visit: Yes (4) HLD (hyperlipidemia) SNOMED Code(s): 29427777 ICD Code: E78.5 - HYPERLIPIDEMIA, UNSPECIFIED Status: Chronic Priority: Low Current Visit: No Qualifiers: Hyperlipidemia type: unspecified Qualified Code(s): E78.5 - Hyperlipidemia, unspecified (5) HTN (hypertension) SNOMED Code(s): 58663368 ICD Code: I10 - ESSENTIAL (PRIMARY) HYPERTENSION Status: Chronic Priority: Medium Current Visit: No Qualifiers: Hypertension type: unspecified Qualified Code(s): I10 - Essential (primary) hypertension (6) Fibromyalgia SNOMED Code(s): 054958189 ICD Code: M79.7 - FIBROMYALGIA Status: Chronic Priority: Low Current Visit: No (7) Arthritis SNOMED Code(s): 5517307 ICD Code: M19.90 - UNSPECIFIED OSTEOARTHRITIS, UNSPECIFIED SITE Status: Chronic Priority: Low Current Visit: No (8) Hypoalbuminemia SNOMED Code(s): 014202471 ICD Code: E88.09 - OTH DISORDERS OF PLASMA-PROTEIN METABOLISM, NEC Status: Acute Priority: High Current Visit: Yes (9) Weakness SNOMED Code(s): 42547498 ICD Code: R53.1 - WEAKNESS Status: Acute Priority: High Current Visit: Yes (10) [id number] kidney injury SNOMED Code(s): 555839746 ICD Code: N17.9 - ACUTE KIDNEY FAILURE, UNSPECIFIED; N18.9 - CHRONIC KIDNEY DISEASE, UNSPECIFIED Status: Acute Priority: High Current Visit: Yes Qualifiers: Acute renal failure type: unspecified Chronic kidney disease stage: stage 4 (severe) Qualified Code(s): N17.9 - Acute kidney failure, unspecified; N18.4 - Chronic kidney disease, stage 4 (severe) Problem List Initiated/Reviewed/Updated: Yes Orders Last 24hrs: Active Orders 24 hr Category Date Time Status Peripheral IV Care [RC] . DIRECTED Care 08/06/20 11:11 Active CORONAVIRUS COVID-19 SONJA [MOLEC] Stat Lab 08/06/20 12:27 Ordered CULTURE BLOOD [BC] Stat Lab 08/06/20 12:00 Received CULTURE BLOOD [BC] Stat Lab 08/06/20 12:05 Received Sodium Chloride 0.9% [Saline Flush] Med 08/06/20 11:11 Active 10 ml FLUSH ASDIRECTED PRN Blood Culture x2 Reflex Set [OM.PC] Stat Oth 08/06/20 11:13 Ordered ED Antiemetic Medication Reflex [OM.PC] Stat Oth 08/06/20 11:12 Ordered Peripheral IV Insertion Adult [OM.PC] Stat Ot 08/06/20 11:11 Ordered Medication Orders Sodium Chloride (Saline Flush) 10 ml FLUSH ASDIRECTED PRN PRN Reason: Keep Vein Open Last Admin: 08/06/20 11:19 Dose: 10 ml Documented by: LUIS Assessment/Plan Comment:: Assessment - day of admission 08/06/20 * 85yo female who presents to our ED via ambulance with urinary complaints, nausea and decreased appetite * Reportedly diagnosed with UTI at walk-in clinic on thursday08/03/20 and given cephalexin * Reports nausea and anorexia; also has chronic diarrhea * Denies any current urinary symptoms * Denies fever, cough, dyspnea * Labs in ED: * WBC 14.31 (likely worsened by dehydration) * Hgb 11.3 * Plt 415 * Neutrophils 10.90 * INR 1.02 * Sodium 139 * Potassium 4.1 * Carbon dioxide 18 * Anion gap 20.1 * BUN 51, Creatinin 1.8, GFR 27 * Glucose 132 * Calcium 10.2 * Bilirubin 0.4 * AST 49, ALT 108, Alk Phos 147 * Albumin 3.3 * Lipase 186 * Lactic acid 1.0 * Pro-BNP 1268 * UA Negative however trace protein noted * SARS-CoV-2 RNA negative * Given 1L fluid bolus, Zofran, and started on 2gm Rocephin in ED * Admitted observation status for further treatment of UTI and dehydration PLAN: UTI (urinary tract infection) Dehydration Acute on chronic renal insufficiency Nausea Hypoalbuminemia Weakness * Will decrease to 1gm Rocephin daily and await blood cultures * Patient still has leukocytosis (although likely worsened/due to by dehydration) * IV fluids as ordered * Antiemetics as ordered * Re-check AM labs * Blood cultures pending * Literacy Coach consult * Obtain old records * PT/OT for weakness * CM/SW HLD (hyperlipidemia) HTN (hypertension) Fibromyalgia Arthritis * No current concerns * Reconcile/review home medications Code Status: Full code PCP: Dr. Bowman DVT Prophylaxis: Lovenox Social: Patient lives in a house with her . They are talking about moving to and [place] in [place]. She normally gets around without assistance but has been utilizing a cane because she is so weak. Disposition: Patient admitted observation status for management of dehydration, nausea, and awaiting blood cultures. Anticipated LOS 1-2 days total - Mortality Measure Prognosis:: Good
[2020-08-06] MEDS ORDERED: Acetaminophen 325 MG Tab PO PRN (13:46)
[2020-08-06] MEDS ORDERED: CODEINE PO PRN (13:49)
[2020-08-06] MEDS ORDERED: Carboxymethylcellulose Sodium 1% Ophth Gel 15 ML Bottle EYEBOTH PRN (13:49)
[2020-08-06] MEDS ORDERED: ACETAMINOPHEN PO PRN (13:49)
[2020-08-06] MEDS ORDERED: Lactated Ringers 1,000 ML IV SCH (14:00)
[2020-08-06] MEDS: Levothyroxine 50 MCG Tab ** PATIENT'S OWN MED PO SCH (18:06)
[2020-08-06] MEDS: PREDNISOLONE ACETATE 1% EYELF SCH ×2 (18:10→20:36)
[2020-08-06] MEDS ORDERED: Loperamide 2 MG Cap PO PRN (19:37)
[2020-08-06] MEDS: Ondansetron 4 MG/2 ML SDV IV PRN (19:52)
[2020-08-06] MEDS: CYCLOSPORINE EYEBOTH SCH (20:37)
[2020-08-06] MEDS: SODIUM BICARBONATE 650 MG PO SCH (20:38)
[2020-08-06] MEDS ORDERED: AMITRIPTYLINE 25 MG PO SCH (21:00)
[2020-08-06] MEDS ORDERED: Amitriptyline 25 MG Tab PO SCH (21:00)
[2020-08-07] MEDS: Ondansetron 4 MG/2 ML SDV IV PRN (04:06)
[2020-08-07] MEDS: Levothyroxine 50 MCG Tab ** PATIENT'S OWN MED PO SCH (06:36)
[2020-08-07] MEDS: Cholestyramine/Sucrose Powder 4 GM Packet PO SCH ×2 (06:36→08:41)
[2020-08-07] MEDS ORDERED: Magnesium Sulfate/Water 2 GM/50 ML BAG IV ONE (08:00)
[2020-08-07] MEDS: Aspirin 81 MG Tab.Chew PO SCH (08:36)
[2020-08-07] MEDS: Megestrol Susp 40 MG/ML 10 ML UD Cup PO SCH (08:36)
[2020-08-07] MEDS: Multivitamins,Therapeutic Tab PO SCH (08:36)
[2020-08-07] MEDS: Cholecalciferol (Vitamin D3) 25 MCG Tab PO SCH (08:36)
[2020-08-07] MEDS: Enoxaparin 30 MG/0.3 ML Syringe SUBCUT SCH (08:37)
[2020-08-07] MEDS: Iron Polysaccharides Complex 150 MG Cap PO SCH (08:37)
[2020-08-07] MEDS: PREDNISOLONE ACETATE 1% EYEBOTH SCH ×2 (08:42→20:26)
[2020-08-07] MEDS: CALCITONIN NAS SCH (08:43)
[2020-08-07] MEDS: SODIUM BICARBONATE 650 MG PO SCH (08:45)
[2020-08-07] MEDS ORDERED: PREDNISOLONE ACETATE 1% EYERT SCH (09:00)
[2020-08-07] MEDS ORDERED: OLMESARTAN MEDOXOMIL 20 MG PO SCH (09:00)
[2020-08-07] MEDS ORDERED: VALACYCLOVIR 1000 MG PO SCH (09:00)
[2020-08-07] MEDS ORDERED: FAMOTIDINE 20 MG PO SCH (09:00)
[2020-08-07] MEDS ORDERED: Metoprolol Succinate 25 MG Tab.ER ** PATIENT'S OWN MED PO SCH (09:00)
[2020-08-07] MEDS ORDERED: EZETIMIBE 10 MG PO SCH (09:00)
[2020-08-07] MEDS ORDERED: Cholestyramine/Sucrose Powder 4 GM Packet PO SCH (09:00)
[2020-08-07] MEDS: CYCLOSPORINE EYEBOTH SCH ×2 (09:02→20:26)
[2020-08-07] MEDS: GANCICLOVIR 0.15% EYELF SCH ×2 (09:06→20:25)
--- NOTE | 2020-08-07 09:38 | PCM.PN ---
- General Info Date of Service: 08/07/20 Admission Dx/Problem (Free Text): Dehydration post UTI Subjective Update: In to see Satya. She reports no bowel movements and continued nausea. We will add Phenergan. Will increase IV fluids as her labs have not improved a whole lot. She reports continued weakness and chills. We will upgrade patient to inpatient status as unlikely patient will discharge tomorrow. Patient has new epigastric abdominal pain which she reports comes and goes. We will add troponin and CK-MB to morning labs. Functional Status: Reports: Pain Controlled, Ambulating, Urinating. Denies: Tolerating Diet (minimal intake due to continued nausea ), New Symptoms - Review of Systems General: Reports: No Symptoms, Weakness, Fatigue, Malaise, Chills. Denies: Fever HEENT: Reports: No Symptoms. Denies: Headaches, Sore Throat Pulmonary: Reports: No Symptoms. Denies: Shortness of Breath, Pleuritic Chest Pain, Cough, Sputum, Wheezing Cardiovascular: Reports: No Symptoms. Denies: Chest Pain, Palpitations, Dyspnea on Exertion, Edema Gastrointestinal: Reports: Abdominal Pain (Epigastric ), Decreased Appetite, Nausea. Denies: Constipation, Diarrhea, Vomiting Genitourinary: Reports: No Symptoms. Denies: Pain Musculoskeletal: Reports: No Symptoms Skin: Reports: No Symptoms. Denies: Cyanosis Neurological: Reports: No Symptoms. Denies: Confusion, Difficulty Walking, Gait Disturbance Psychiatric: Reports: No Symptoms. Denies: Confusion - Patient Data Vitals - Most Recent: Last Vital Signs Temp 97.9 F 08/07/20 08:08 Pulse 87 08/07/20 08:46 Resp 16 08/07/20 03:59 BP 129/75 08/07/20 08:46 Pulse Ox 100 08/07/20 08:08 Weight - Most Recent: 96 lb 8 oz I&O - Last 24 Hours: Intake & Output 08/06/20 08/07/20 08/07/20 22:59 06:59 14:59 Intake Total 827 911 Output Total 0 300 Balance 827 611 Lab Results Last 24 Hours: Laboratory Results - last 24 hr 08/06/20 08/06/20 08/06/20 Range/Units 11:23 11:23 11:23 WBC 14.31 H (3.98-10.04) K/mm3 RBC 3.19 L (3.98-5.22) M/mm3 Hgb 11.3 (11.2-15.7) gm/dl Hct 34.5 (34.1-44.9) % MCV 108.2 H (79.4-94.8) fl MCH 35.4 H (25.6-32.2) pg MCHC 32.8 (32.2-35.5) g/dl RDW Std Deviation 51.1 H (36.4-46.3) fL Plt Count 415 H D (182-369) K/mm3 MPV 9.9 (9.4-12.3) fl Neut % (Auto) 76.2 H (34.0-71.1) % Lymph % (Auto) 14.6 L (19.3-51.7) % [place] % (Auto) 7.4 (4.7-12.5) % Eos % (Auto) 0.4 L (0.7-5.8) Baso % (Auto) 0.1 (0.1-1.2) % Neut # (Auto) 10.90 H (1.56-6.13) K/mm3 Lymph # (Auto) 2.09 (1.18-3.74) K/mm3 [place] # (Auto) 1.06 H (0.24-0.36) K/mm3 Eos # (Auto) 0.06 (0.04-0.36) K/mm3 Baso # (Auto) 0.02 (0.01-0.08) K/mm3 Manual Slide Review Abnormal smear PT 10.9 (9.7-12.0) SECONDS INR 1.02 Sodium 139 (136-145) mEq/L Potassium 4.1 (3.5-5.1) mEq/L Chloride 105 (98-107) mEq/L Carbon Dioxide 18 L (21-32) mEq/L Anion Gap 20.1 H (5-15) BUN 51 H D (7-18) mg/dL Creatinine 1.8 H (0.55-1.02) mg/dL Est Cr Clr Drug Dosing 16.06 mL/min Estimated GFR (MDRD) 27 (>60) mL/min BUN/Creatinine Ratio 28.3 H (14-18) Glucose 132 H (83-115) mg/dL Lactic Acid (0.4-2.0) mmol/L Calcium 10.2 H (8.5-10.1) mg/dL Magnesium (1.8-2.4) mg/dl Total Bilirubin 0.4 (0.2-1.0) mg/dL AST 49 H (15-37) U/L ALT 108 H (14-59) U/L Alkaline Phosphatase 147 H (46-116) U/L NT-Pro-B Natriuret Pep (0-450) pg/mL Total Protein 7.7 (6.4-8.2) g/dl Albumin 3.3 L (3.4-5.0) g/dl Globulin 4.4 gm/dL Albumin/Globulin Ratio 0.8 L (1-2) Lipase 186 (73-393) U/L Urine Color (Yellow) Urine Appearance (Clear) Urine pH (5.0-8.0) Ur Specific [place] (1.005-1.030) Urine Protein (Negative) Urine Glucose (UA) (Negative) Urine Ketones (Negative) Urine Occult Blood (Negative) Urine Nitrite (Negative) Urine Bilirubin (Negative) Urine Urobilinogen (0.2-1.0) Ur Leukocyte Esterase (Negative) U Hyaline Cast (Auto) (0-5) /lpf Urine RBC (0-5) /hpf Urine WBC (0-5) /hpf Ur Epithelial Cells (0-5) /hpf Urine Bacteria (FEW) /hpf Urine Mucus (FEW) /hpf SARS-CoV-2 RNA (SONJA) (NEGATIVE) 08/06/20 08/06/20 08/06/20 Range/Units 11:23 12:05 12:27 WBC (3.98-10.04) K/mm3 RBC (3.98-5.22) M/mm3 Hgb (11.2-15.7) gm/dl Hct (34.1-44.9) % MCV (79.4-94.8) fl MCH (25.6-32.2) pg MCHC (32.2-35.5) g/dl RDW Std Deviation (36.4-46.3) fL Plt Count (182-369) K/mm3 MPV (9.4-12.3) fl Neut % (Auto) (34.0-71.1) % Lymph % (Auto) (19.3-51.7) % [place] % (Auto) (4.7-12.5) % Eos % (Auto) (0.7-5.8) Baso % (Auto) (0.1-1.2) % Neut # (Auto) (1.56-6.13) K/mm3 Lymph # (Auto) (1.18-3.74) K/mm3 [place] # (Auto) (0.24-0.36) K/mm3 Eos # (Auto) (0.04-0.36) K/mm3 Baso # (Auto) (0.01-0.08) K/mm3 Manual Slide Review PT (9.7-12.0) SECONDS INR Sodium (136-145) mEq/L Potassium (3.5-5.1) mEq/L Chloride (98-107) mEq/L Carbon Dioxide (21-32) mEq/L Anion Gap (5-15) BUN (7-18) mg/dL Creatinine (0.55-1.02) mg/dL Est Cr Clr Drug Dosing mL/min Estimated GFR (MDRD) (>60) mL/min BUN/Creatinine Ratio (14-18) Glucose (83-115) mg/dL Lactic Acid 1.0 (0.4-2.0) mmol/L Calcium (8.5-10.1) mg/dL Magnesium (1.8-2.4) mg/dl Total Bilirubin (0.2-1.0) mg/dL AST (15-37) U/L ALT (14-59) U/L Alkaline Phosphatase (46-116) U/L NT-Pro-B Natriuret Pep 1268 H (0-450) pg/mL Total Protein (6.4-8.2) g/dl Albumin (3.4-5.0) g/dl Globulin gm/dL Albumin/Globulin Ratio (1-2) Lipase (73-393) U/L Urine Color Yellow (Yellow) Urine Appearance Clear (Clear) Urine pH 6.0 (5.0-8.0) Ur Specific [place] 1.025 (1.005-1.030) Urine Protein Trace H (Negative) Urine Glucose (UA) Negative (Negative) Urine Ketones Negative (Negative) Urine Occult Blood Negative (Negative) Urine Nitrite Negative (Negative) Urine Bilirubin Negative (Negative) Urine Urobilinogen 0.2 (0.2-1.0) Ur Leukocyte Esterase Negative (Negative) U Hyaline Cast (Auto) 0-5 (0-5) /lpf Urine RBC Not seen (0-5) /hpf Urine WBC 0-5 (0-5) /hpf Ur Epithelial Cells Not seen (0-5) /hpf Urine Bacteria Rare (FEW) /hpf Urine Mucus Rare (FEW) /hpf SARS-CoV-2 RNA (SONJA) (NEGATIVE) 08/06/20 08/07/20 08/07/20 Range/Units 12:27 04:50 04:50 WBC 12.93 H (3.98-10.04) K/mm3 RBC 2.27 L (3.98-5.22) M/mm3 Hgb 8.0 L D (11.2-15.7) gm/dl Hct 24.8 L (34.1-44.9) % MCV 109.3 H (79.4-94.8) fl MCH 35.2 H (25.6-32.2) pg MCHC 32.3 (32.2-35.5) g/dl RDW Std Deviation 50.4 H (36.4-46.3) fL Plt Count 306 D (182-369) K/mm3 MPV 9.6 (9.4-12.3) fl Neut % (Auto) 67.6 (34.0-71.1) % Lymph % (Auto) 21.7 (19.3-51.7) % [place] % (Auto) 8.4 (4.7-12.5) % Eos % (Auto) 1.2 (0.7-5.8) Baso % (Auto) 0.2 (0.1-1.2) % Neut # (Auto) 8.74 H (1.56-6.13) K/mm3 Lymph # (Auto) 2.80 (1.18-3.74) K/mm3 [place] # (Auto) 1.09 H (0.24-0.36) K/mm3 Eos # (Auto) 0.16 (0.04-0.36) K/mm3 Baso # (Auto) 0.03 (0.01-0.08) K/mm3 Manual Slide Review Abnormal smear PT (9.7-12.0) SECONDS INR Sodium 139 (136-145) mEq/L Potassium 3.7 (3.5-5.1) mEq/L Chloride 108 H (98-107) mEq/L Carbon Dioxide 19 L (21-32) mEq/L Anion Gap 15.7 H (5-15) BUN 52 H (7-18) mg/dL Creatinine 1.5 H (0.55-1.02) mg/dL Est Cr Clr Drug Dosing 18.60 mL/min Estimated GFR (MDRD) 33 (>60) mL/min BUN/Creatinine Ratio 34.7 H (14-18) Glucose 122 H (83-115) mg/dL Lactic Acid (0.4-2.0) mmol/L Calcium 8.7 D (8.5-10.1) mg/dL Magnesium 1.7 L (1.8-2.4) mg/dl Total Bilirubin 0.3 (0.2-1.0) mg/dL AST 24 (15-37) U/L ALT 64 H (14-59) U/L Alkaline Phosphatase 90 (46-116) U/L NT-Pro-B Natriuret Pep (0-450) pg/mL Total Protein 5.5 L (6.4-8.2) g/dl Albumin 2.3 L (3.4-5.0) g/dl Globulin 3.2 gm/dL Albumin/Globulin Ratio 0.7 L (1-2) Lipase (73-393) U/L Urine Color (Yellow) Urine Appearance (Clear) Urine pH (5.0-8.0) Ur Specific [place] (1.005-1.030) Urine Protein (Negative) Urine Glucose (UA) (Negative) Urine Ketones (Negative) Urine Occult Blood (Negative) Urine Nitrite (Negative) Urine Bilirubin (Negative) Urine Urobilinogen (0.2-1.0) Ur Leukocyte Esterase (Negative) U Hyaline Cast (Auto) (0-5) /lpf Urine RBC (0-5) /hpf Urine WBC (0-5) /hpf Ur Epithelial Cells (0-5) /hpf Urine Bacteria (FEW) /hpf Urine Mucus (FEW) /hpf SARS-CoV-2 RNA (SONJA) Negative (NEGATIVE) [place] Results Last 24 Hours: Microbiology 08/06/20 12:00 Anaerobic Blood Culture - Final Blood - Venous Med Orders - Current: Current Medications Acetaminophen (Tylenol) 650 mg PO Q4H PRN PRN Reason: Pain (Mild 1-3)/fever Acetaminophen/Codeine Phosphate (Tylenol With Codeine No.3 300mg/30mg) 1 tab PO Q8H PRN PRN Reason: Pain Amitriptyline HCl (Elavil) 25 mg PO BEDTIME [facility] Last Admin: 08/06/20 20:36 Dose: 25 mg Documented by: Artificial Tears (Refresh Liquigel 1%) 1 - 2 ml EYEBOTH ASDIRECTED PRN PRN Reason: Dry Eyes Aspirin (Aspirin) 81 mg PO DAILY [facility] Last Admin: 08/07/20 08:36 Dose: 81 mg Documented by: Cholecalciferol (Vitamin D3) 25 mcg PO DAILY [facility] Last Admin: 08/07/20 08:36 Dose: 25 mcg Documented by: Cholestyramine Resin (Cholestyramine Packet) 4 gm PO DAILY@0700 [facility] Last Admin: 08/07/20 08:41 Dose: 4 gm Documented by: Ezetimibe (Zetia) 10 mg PO DAILY [facility] Last Admin: 08/07/20 08:47 Dose: 10 mg Documented by: Enoxaparin Sodium (Lovenox) 30 mg SUBCUT Q24H [facility] Last Admin: 08/07/20 08:37 Dose: 30 mg Documented by: Famotidine (Pepcid) 20 mg PO DAILY [facility] Last Admin: 08/07/20 08:42 Dose: 20 mg Documented by: Lactated Ringer's (Ringers, Lactated) 1,000 mls @ 50 mls/hr IV ASDIRECTED [facility] Stop: 08/07/20 09:59 Last Admin: 08/06/20 15:34 Dose: 50 mls/hr Documented by: Ceftriaxone Sodium 1 gm/ (Sodium Chloride) 100 mls @ 200 mls/hr IV Q24H [facility] Magnesium Sulfate (Magnesium Sulfate In Water 2 Gm/50 Ml) 2 gm in 50 mls @ 25 mls/hr IV ONETIME ONE Stop: 08/07/20 09:59 Last Admin: 08/07/20 08:53 Dose: 25 mls/hr Documented by: Promethazine HCl 12.5 mg/ (Sodium Chloride) 50.5 mls @ 100 mls/hr IV ONETIME ONE Stop: 08/07/20 10:30 Levothyroxine Sodium (Synthroid) 50 mcg PO MoTuWeThFrSa@0600 [facility] Last Admin: 08/07/20 06:36 Dose: 50 mcg Documented by: Levothyroxine Sodium (Synthroid) 100 mcg PO [place]@0600 [facility] Loperamide HCl (Imodium) 2 mg PO Q12HR PRN PRN Reason: Diarrhea Megestrol Acetate (Megace 40 Mg/Ml Susp) 400 mg PO DAILY [facility] Last Admin: 08/07/20 08:36 Dose: 400 mg Documented by: Metoprolol Succinate (Toprol Xl) 25 mg PO DAILY [facility] Last Admin: 08/07/20 08:46 Dose: 25 mg Documented by: Multivitamins (Thera) 1 each PO DAILY [facility] Last Admin: 08/07/20 08:36 Dose: 1 each Documented by: Ganciclovir Ophth (Gel 0.15% Ptom) 0 each EYELF BID [facility] Last Admin: 08/07/20 09:06 Dose: 1 each Documented by: Ondansetron HCl (Zofran) 4 mg IV Q6H PRN PRN Reason: Nausea/Vomiting Last Admin: 08/07/20 04:06 Dose: 4 mg Documented by: Calcitonin ([place]) Nasal [place] Patient's Own Med 0 each SARAH DAILY [facility] Last Admin: 08/07/20 08:43 Dose: 1 each Documented by: Cyclosporine [ Restasis Ophth Drops ] Patient's Own Med 0 each EYEBOTH BID [facility] Last Admin: 08/07/20 09:02 Dose: 1 each Documented by: Olmesartan Medoxomil 20 Mg Patient's Own Med 0 each PO DAILY [facility] Last Admin: 08/07/20 08:44 Dose: 1 each Documented by: Polysaccharide Iron Complex (Ferrex 150) 150 mg PO DAILY [facility] Last Admin: 08/07/20 08:37 Dose: 150 mg Documented by: Prednisolone Acetate (Pred Forte 1% Ophth Susp) 0 ml EYEBOTH BID [facility] Last Admin: 08/07/20 08:42 Dose: 1 drop Documented by: Sodium Bicarbonate (Sodium Bicarbonate) 650 mg PO BID [facility] Last Admin: 08/07/20 08:45 Dose: 650 mg Documented by: Sodium Chloride (Saline Flush) 10 ml FLUSH ASDIRECTED PRN PRN Reason: Keep Vein Open Last Admin: 08/06/20 11:19 Dose: 10 ml Documented by: Valacyclovir HCl (Valtrex) 1,000 mg PO DAILY [facility] Last Admin: 08/07/20 08:47 Dose: 1,000 mg Documented by: Discontinued Medications Amitriptyline HCl (Elavil) 25 mg PO BEDTIME STEVE Cholestyramine Resin (Cholestyramine Packet) 4 gm PO DAILY STEVE Ceftriaxone Sodium 2 gm/ (Sodium Chloride) 100 mls @ 200 mls/hr IV ONETIME ONE Stop: 08/06/20 11:42 Last Admin: 08/06/20 12:12 Dose: 200 mls/hr Documented by: Sodium Chloride (Normal Saline) 1,000 mls @ 1,000 mls/hr IV .BOLUS STA Stop: 08/06/20 12:10 Last Admin: 08/06/20 11:30 Dose: 1,000 mls/hr Documented by: Ceftriaxone Sodium 2 gm/ (Sodium Chloride) 100 mls @ 200 mls/hr IV Q24H STEVE Ondansetron HCl (Zofran) 4 mg IVPUSH ONETIME ONE Stop: 08/06/20 11:12 Last Admin: 08/06/20 11:30 Dose: 4 mg Documented by: Prednisolone Acetate (Pred Forte 1% Ophth Susp) 0 ml EYELF 6XDAY [facility] Last Admin: 08/06/20 20:36 Dose: 1 drop Documented by: - Exam Quality Assessment: DVT Prophylaxis. No: Supplemental Oxygen General: Alert, Oriented, Cooperative, No Acute Distress HEENT: Pupils Equal, Pupils Reactive. No: Mucous Membr. Moist/[place] (still somewhat dry ) Neck: Supple, Trachea Midline Lungs: Clear to Auscultation, Normal Respiratory Effort Cardiovascular: Regular Rate, Regular Rhythm GI/Abdominal Exam: Normal Bowel Sounds, Soft, Non-Tender, No Distention (Female) Exam: Deferred Back Exam: Normal Inspection, Full Range of Motion Extremities: Normal Inspection, Normal Range of Motion, Non-Tender, No Pedal Edema, Normal Capillary Refill Peripheral Pulses: 2+: Radial (L), Radial (R), Dorsalis Pedis (L), Dorsalis Pedis (R) Skin: Warm, Dry, Intact Neurological: No New Focal Deficit Psy/Mental Status: Alert, Normal Affect, Normal Mood Sepsis Event Note - Evaluation Sepsis Screening Result: No Definite Risk - Focused Exam Vital Signs: Vital Signs Temp Pulse Resp BP Pulse Ox 08/07/20 08:46 87 129/75 08/07/20 08:31 129/75 08/07/20 08:08 97.9 F 87 100 08/07/20 03:59 97.9 F 91 16 131/47 L 99 08/06/20 23:28 97.9 F 93 16 113/56 L 99 - Problem List & Annotations (1) UTI (urinary tract infection) SNOMED Code(s): 19577901 Code(s): N39.0 - URINARY TRACT INFECTION, SITE NOT SPECIFIED Status: Acute Priority: High Current Visit: Yes Qualifiers: Urinary tract infection type: acute cystitis Hematuria presence: without hematuria Qualified Code(s): N30.00 - Acute cystitis without hematuria (2) Nausea SNOMED Code(s): 337790061 Code(s): R11.0 - NAUSEA Status: Acute Priority: High Current Visit: Yes (3) Dehydration SNOMED Code(s): 10080696 Code(s): E86.0 - DEHYDRATION Status: Acute Priority: High Current Visit: Yes (4) HLD (hyperlipidemia) SNOMED Code(s): 60930836 Code(s): E78.5 - HYPERLIPIDEMIA, UNSPECIFIED Status: Chronic Priority: Low Current Visit: No Qualifiers: Hyperlipidemia type: unspecified Qualified Code(s): E78.5 - Hyperlipidemia, unspecified (5) HTN (hypertension) SNOMED Code(s): 35523743 Code(s): I10 - ESSENTIAL (PRIMARY) HYPERTENSION Status: Chronic Priority: Medium Current Visit: No Qualifiers: Hypertension type: unspecified Qualified Code(s): I10 - Essential (primary) hypertension (6) Fibromyalgia SNOMED Code(s): 668418269 Code(s): M79.7 - FIBROMYALGIA Status: Chronic Priority: Low Current Visit: No (7) Arthritis SNOMED Code(s): 2816913 Code(s): M19.90 - UNSPECIFIED OSTEOARTHRITIS, UNSPECIFIED SITE Status: Chronic Priority: Low Current Visit: No (8) Hypoalbuminemia SNOMED Code(s): 128293564 Code(s): E88.09 - OTH DISORDERS OF PLASMA-PROTEIN METABOLISM, NEC Status: Acute Priority: High Current Visit: Yes (9) Weakness SNOMED Code(s): 05228331 Code(s): R53.1 - WEAKNESS Status: Acute Priority: High Current Visit: Yes (10) [id number] kidney injury SNOMED Code(s): 063282755 Code(s): N17.9 - ACUTE KIDNEY FAILURE, UNSPECIFIED; N18.9 - CHRONIC KIDNEY DISEASE, UNSPECIFIED Status: Acute Priority: High Current Visit: Yes Qualifiers: Acute renal failure type: unspecified Chronic kidney disease stage: stage 4 (severe) Qualified Code(s): N17.9 - Acute kidney failure, unspecified; N18.4 - Chronic kidney disease, stage 4 (severe) (11) Hypomagnesemia SNOMED Code(s): 590274708 Code(s): E83.42 - HYPOMAGNESEMIA Status: Acute Priority: High Current Visit: Yes - Problem List Review Problem List Initiated/Reviewed/Updated: Yes - My Orders Last 24 Hours: My Active Orders 08/06/20 13:46 Height and Weight [RC] 06 Intake and Output [RC] 04,16 Oxygen Therapy [RC] PRN Pulse Oximetry [RC] PRN Up With Assistance [RC] BID VTE/DVT Education [RC] DAILY Vital Signs [RC] Q4HR Consult to Case Management/Painting Department Supervisor [CONS] Routine Consult to Railroad Cook [CONS] Routine OT Evaluation and Treatment [CONS] Routine PT Evaluation and Treatment [CONS] Routine Acetaminophen [TylenoL] 650 mg PO Q4H PRN Ondansetron [Zofran] 4 mg IV Q6H PRN 08/06/20 13:49 Acetaminophen/Codeine [Tylenol with Codeine No.3 300MG/30MG] 1 tab PO Q8H PRN Carboxymethylcellulose Sodium [Refresh Liquigel 1%] 1 - 2 ml EYEBOTH ASDIRECTED PRN 08/06/20 14:00 Lactated Ringers [Ringers, Lactated] 1,000 ml IV ASDIRECTED 08/06/20 14:28 Code Status [Resuscitation Status] Routine 08/06/20 Dinner Regular Diet [DIET] 08/06/20 21:00 Amitriptyline [Elavil] 25 mg PO BEDTIME Patient's Own Medication [Ptom] 0 each EYEBOTH BID 08/07/20 07:00 Cholestyramine/Sucrose [Cholestyramine Packet] 4 gm PO DAILY@0700 08/07/20 08:00 Magnesium Sulfate/Water [Magnesium Sulfate in Water 2 GM/50 ML] 2 gm in 50 ml IV ONETIME 08/07/20 09:00 Aspirin 81 mg PO DAILY Cholecalciferol (Vitamin D3) [Vitamin D3] 25 mcg PO DAILY Enoxaparin [Lovenox] 30 mg SUBCUT Q24H Ezetimibe [Zetia] 10 mg PO DAILY Famotidine [Pepcid] 20 mg PO DAILY Iron Polysaccharides Complex [Ferrex 150] 150 mg PO DAILY Metoprolol Succinate [Toprol XL] 25 mg PO DAILY Multivitamins,Therapeutic [Thera] 1 each PO DAILY Patient's Own Medication [Ptom] 0 each SARAH DAILY Patient's Own Medication [Ptom] 0 each PO DAILY valACYclovir [Valtrex] 1,000 mg PO DAILY 08/07/20 09:27 CKMB [CHEM] Routine TROPONIN I [CHEM] Routine 08/07/20 09:31 Patient Status [ADT] Routine 08/07/20 10:00 Promethazine [Phenergan] 12.5 mg Sodium Chloride 0.9% [Normal Saline] 50 ml IV ONETIME 08/07/20 11:00 cefTRIAXone [Rocephin] 1 gm Sodium Chloride 0.9% [Normal Saline] 100 ml IV Q24H 08/07/20 13:00 CBC WITH AUTO DIFF [HEME] Timed 08/08/20 05:11 CBC WITH AUTO DIFF [HEME] AM CMP [COMPREHENSIVE METABOLIC PN,CMP] [CHEM] AM MAGNESIUM [CHEM] AM 08/09/20 05:11 CBC WITH AUTO DIFF [HEME] AM CMP [COMPREHENSIVE METABOLIC PN,CMP] [CHEM] AM MAGNESIUM [CHEM] AM 08/10/20 05:11 CBC WITH AUTO DIFF [HEME] AM CMP [COMPREHENSIVE METABOLIC PN,CMP] [CHEM] AM MAGNESIUM [CHEM] AM 08/12/20 06:00 Levothyroxine [Synthroid] 100 mcg PO Naranjo@0600 - Assessment Assessment:: Assessment - day of admission 08/06/20 * 85yo female who presents to our ED via ambulance with urinary complaints, nausea and decreased appetite * Reportedly diagnosed with UTI at walk-in clinic on thursday08/03/20 and given cephalexin * Reports nausea and anorexia; also has chronic diarrhea * Denies any current urinary symptoms * Denies fever, cough, dyspnea * Labs in ED: * WBC 14.31 (likely worsened by dehydration) * Hgb 11.3 * Plt 415 * Neutrophils 10.90 * INR 1.02 * Sodium 139 * Potassium 4.1 * Carbon dioxide 18 * Anion gap 20.1 * BUN 51, Creatinin 1.8, GFR 27 * Glucose 132 * Calcium 10.2 * Bilirubin 0.4 * AST 49, ALT 108, Alk Phos 147 * Albumin 3.3 * Lipase 186 * Lactic acid 1.0 * Pro-BNP 1268 * UA Negative however trace protein noted * SARS-CoV-2 RNA negative * Given 1L fluid bolus, Zofran, and started on 2gm Rocephin in ED * Admitted observation status for further treatment of UTI and dehydration 08/07/20 * Remains nauseated * Reports epigastric pain, No BM (usually has chronic diarrhea), minimal urine output, Chills * Labs: * WBC 12.93 * Hemoglobin 8.0 * Platelets 306 * Neutrophils 8.74 * Sodium 139 * Potassium 3.7 * Carbon dioxide 19 * Anion gap 15.7 * BUN 52, Creatinine 1.5, GFR 33 * Magnesium 1.7 * AST 24, ALT 64, Alk Phos 90 * Protein 5.5 * Albumin 2.3 * Will add IV Phenergan for nausea * Increase IV fluids as patient continues to be dehydrated * Blood cultures pending. * Reviewed [place] Walk-In notes: Sommers Sensitive E. Coli, 30,000 CFUs. * Continue IV ABX pending blood cultures * Check troponin/CKMB due to abdominal pain, continued nausea * Upgraded to inpatient due to continuation of symptoms, minimal lab improvement, continued work-up of symptoms. - Plan Plan:: UTI (urinary tract infection) Dehydration Acute on chronic renal insufficiency Nausea Hypoalbuminemia Weakness Hypomagnesemia * Will decrease to 1gm Rocephin daily and await blood cultures * Patient still has leukocytosis (although likely worsened/due to by dehydration) * IV fluids as ordered * Antiemetics as ordered * Re-check AM labs * Blood cultures pending * Railroad Cook consult * Obtain old records * PT/OT for weakness * CM/SW * Phenergan x1 for nausea * Supplement magnesium * Re-check CBC at 1300 as patient had 3.3gram hemoglobin drop (likely dilutional but still quite a bit) HLD (hyperlipidemia) HTN (hypertension) Fibromyalgia Arthritis * No current concerns * Reconcile/review home medications Code Status: Full code PCP: Dr. Bowman DVT Prophylaxis: Lovenox Social: Patient lives in a house with her . They are talking about moving to and [place] in [place]. She normally gets around without assistance but has been utilizing a cane because she is so weak. Disposition: Patient admitted observation status for management of dehydration, nausea, and awaiting blood cultures. Upgraded to inpatient on 08/07/20 as patient remains weak, nauseated, complains of abdominal pain, and had minimal improvement on labs.
[2020-08-07] MEDS ORDERED: Promethazine 12.5 MG in Sodium Chloride 0.9% 50 ML IV ONE (10:00)
[2020-08-07] MEDS ORDERED: cefTRIAXone 2 GM in Sodium Chloride 0.9% 100 ML IV SCH (11:00)
[2020-08-07] MEDS ORDERED: cefTRIAXone 1 GM in Sodium Chloride 0.9% 100 ML IV SCH (11:00)
[2020-08-07] MEDS: Lactated Ringers 1,000 ML IV SCH ×2 (11:59→23:45)
[2020-08-07] MEDS ORDERED: Acetaminophen/Codeine 300-30 MG Tab PO PRN (12:04)
[2020-08-07] MEDS: Scopolamine 1.5 MG Transdermal Patch TRDERM SCH (16:10)
[2020-08-07] MEDS: Amitriptyline 25 MG Tab PO SCH (20:20)
[2020-08-07] MEDS: Sodium Bicarbonate 650 MG Tab PO SCH (20:21)
[2020-08-08] MEDS: Levothyroxine 50 MCG Tab PO SCH (06:05)
[2020-08-08] MEDS: Cholestyramine/Sucrose Powder 4 GM Packet PO SCH (06:05)
[2020-08-08] MEDS ORDERED: Lactated Ringers 1,000 ML IV SCH (07:30)
--- NOTE | 2020-08-08 07:35 | PCM.PN ---
- General Info Date of Service: 08/08/20 Admission Dx/Problem (Free Text): Dehydration post UTI Subjective Update: In to see Satya. She is sitting up in the chair reports she feels better although still somewhat nauseated. She reports she feels weak. We discussed her hemoglobin being 6.9 and she agrees to a blood transfusion. She has been receiving other significant IV fluids due to her dehydration which likely contributed to this drop of hemoglobin although it is felt this is a significant drop in likely not only related to IV fluids. Will check a occult stool although patient has had minimal output. We will check a reticulocyte count. She has been macrocytic since she arrived however blood smear is now noting target cells and teardrop cells. We will give 1 unit blood infusion and work-up further. Functional Status: Reports: Pain Controlled, Tolerating Diet, Ambulating, Urinating. Denies: New Symptoms - Review of Systems General: Reports: Weakness (minimal ). Denies: Fever, Fatigue, Malaise, Chills HEENT: Reports: No Symptoms. Denies: Headaches, Sore Throat Pulmonary: Reports: No Symptoms. Denies: Shortness of Breath, Pleuritic Chest Pain, Cough, Sputum, Wheezing Cardiovascular: Reports: No Symptoms. Denies: Chest Pain, Palpitations, Dyspnea on Exertion, Edema Gastrointestinal: Reports: Nausea (improved ). Denies: Abdominal Pain, Constipation, Diarrhea, Vomiting Genitourinary: Reports: No Symptoms. Denies: Pain Musculoskeletal: Reports: No Symptoms Skin: Reports: No Symptoms. Denies: Cyanosis Neurological: Reports: No Symptoms. Denies: Confusion Psychiatric: Reports: No Symptoms - Patient Data Vitals - Most Recent: Last Vital Signs Temp 97.9 F 08/08/20 01:05 Pulse 77 08/08/20 01:05 Resp 16 08/08/20 01:05 BP 132/84 08/08/20 01:05 Pulse Ox 100 08/08/20 01:05 Weight - Most Recent: 99 lb I&O - Last 24 Hours: Intake & Output 08/07/20 08/08/20 08/08/20 22:59 06:59 14:59 Intake Total 2001 1200 Output Total 350 Balance 2001 850 Lab Results Last 24 Hours: Laboratory Results - last 24 hr 08/07/20 08/07/20 08/08/20 Range/Units 04:50 13:00 05:42 WBC 11.80 H 10.46 H (3.98-10.04) K/mm3 RBC 2.59 L 1.96 L (3.98-5.22) M/mm3 Hgb 9.2 L 6.9 L* D (11.2-15.7) gm/dl Hct 28.3 L 21.4 L (34.1-44.9) % MCV 109.3 H 109.2 H (79.4-94.8) fl MCH 35.5 H 35.2 H (25.6-32.2) pg MCHC 32.5 32.2 (32.2-35.5) g/dl RDW Std Deviation 50.0 H 49.5 H (36.4-46.3) fL Plt Count 345 278 (182-369) K/mm3 MPV 9.3 L 9.4 (9.4-12.3) fl Neut % (Auto) 65.4 61.5 (34.0-71.1) % Lymph % (Auto) 23.1 26.9 (19.3-51.7) % [place] % (Auto) 8.9 7.2 (4.7-12.5) % Eos % (Auto) 1.5 3.3 (0.7-5.8) Baso % (Auto) 0.3 0.3 (0.1-1.2) % Neut # (Auto) 7.72 H 6.45 H (1.56-6.13) K/mm3 Lymph # (Auto) 2.72 2.81 (1.18-3.74) K/mm3 [place] # (Auto) 1.05 H 0.75 H (0.24-0.36) K/mm3 Eos # (Auto) 0.18 0.34 (0.04-0.36) K/mm3 Baso # (Auto) 0.03 0.03 (0.01-0.08) K/mm3 Manual Slide Review Abnormal smear Abnormal smear Sodium (136-145) mEq/L Potassium (3.5-5.1) mEq/L Chloride (98-107) mEq/L Carbon Dioxide (21-32) mEq/L Anion Gap (5-15) BUN (7-18) mg/dL Creatinine (0.55-1.02) mg/dL Est Cr Clr Drug Dosing mL/min Estimated GFR (MDRD) (>60) mL/min BUN/Creatinine Ratio (14-18) Glucose (83-115) mg/dL Calcium (8.5-10.1) mg/dL Magnesium (1.8-2.4) mg/dl Total Bilirubin (0.2-1.0) mg/dL AST (15-37) U/L ALT (14-59) U/L Alkaline Phosphatase (46-116) U/L CK-MB (CK-2) 0.5 (0-3.6) ng/ml Troponin I < 0.017 (0.00-0.056) ng/mL Total Protein (6.4-8.2) g/dl Albumin (3.4-5.0) g/dl Globulin gm/dL Albumin/Globulin Ratio (1-2) 08/08/20 Range/Units 05:42 WBC (3.98-10.04) K/mm3 RBC (3.98-5.22) M/mm3 Hgb (11.2-15.7) gm/dl Hct (34.1-44.9) % MCV (79.4-94.8) fl MCH (25.6-32.2) pg MCHC (32.2-35.5) g/dl RDW Std Deviation (36.4-46.3) fL Plt Count (182-369) K/mm3 MPV (9.4-12.3) fl Neut % (Auto) (34.0-71.1) % Lymph % (Auto) (19.3-51.7) % [place] % (Auto) (4.7-12.5) % Eos % (Auto) (0.7-5.8) Baso % (Auto) (0.1-1.2) % Neut # (Auto) (1.56-6.13) K/mm3 Lymph # (Auto) (1.18-3.74) K/mm3 [place] # (Auto) (0.24-0.36) K/mm3 Eos # (Auto) (0.04-0.36) K/mm3 Baso # (Auto) (0.01-0.08) K/mm3 Manual Slide Review Sodium 140 (136-145) mEq/L Potassium 3.7 (3.5-5.1) mEq/L Chloride 111 H (98-107) mEq/L Carbon Dioxide 19 L (21-32) mEq/L Anion Gap 13.7 (5-15) BUN 30 H (7-18) mg/dL Creatinine 1.2 H (0.55-1.02) mg/dL Est Cr Clr Drug Dosing 23.86 mL/min Estimated GFR (MDRD) 43 (>60) mL/min BUN/Creatinine Ratio 25.0 H (14-18) Glucose 81 L (83-115) mg/dL Calcium 8.5 (8.5-10.1) mg/dL Magnesium 2.1 (1.8-2.4) mg/dl Total Bilirubin 0.3 (0.2-1.0) mg/dL AST 23 (15-37) U/L ALT 50 (14-59) U/L Alkaline Phosphatase 76 (46-116) U/L CK-MB (CK-2) (0-3.6) ng/ml Troponin I (0.00-0.056) ng/mL Total Protein 4.7 L (6.4-8.2) g/dl Albumin 2.0 L (3.4-5.0) g/dl Globulin 2.7 gm/dL Albumin/Globulin Ratio 0.7 L (1-2) [place] Results Last 24 Hours: Microbiology 08/06/20 12:00 Aerobic Blood Culture - Preliminary Blood - Venous NO GROWTH AFTER 1 DAY Anaerobic Blood Culture - Final 08/06/20 12:05 Aerobic Blood Culture - Preliminary Blood - Venous - Lab Draw NO GROWTH AFTER 1 DAY Anaerobic Blood Culture - Preliminary NO GROWTH AFTER 1 DAY Med Orders - Current: Current Medications Acetaminophen (Tylenol) 650 mg PO Q4H PRN PRN Reason: Pain (Mild 1-3)/fever Acetaminophen/Codeine Phosphate (Tylenol With Codeine No.3 300mg/30mg) 1 tab PO Q8H PRN PRN Reason: Pain Amitriptyline HCl (Elavil) 25 mg PO BEDTIME [facility] Last Admin: 08/07/20 20:20 Dose: 25 mg Documented by: Artificial Tears (Refresh Liquigel 1%) 1 - 2 ml EYEBOTH ASDIRECTED PRN PRN Reason: Dry Eyes Aspirin (Aspirin) 81 mg PO DAILY [facility] Last Admin: 08/07/20 08:36 Dose: 81 mg Documented by: Cholecalciferol (Vitamin D3) 25 mcg PO DAILY [facility] Last Admin: 08/07/20 08:36 Dose: 25 mcg Documented by: Cholestyramine Resin (Cholestyramine Packet) 4 gm PO DAILY@0700 [facility] Last Admin: 08/08/20 06:05 Dose: 4 gm Documented by: Ezetimibe (Zetia) 10 mg PO DAILY [facility] Enoxaparin Sodium (Lovenox) 30 mg SUBCUT Q24H [facility] Last Admin: 08/07/20 08:37 Dose: 30 mg Documented by: Famotidine (Pepcid) 20 mg PO DAILY [facility] Ceftriaxone Sodium 1 gm/ (Sodium Chloride) 100 mls @ 200 mls/hr IV Q24H [facility] Last Admin: 08/07/20 11:59 Dose: 200 mls/hr Documented by: Lactated Ringer's (Ringers, Lactated) 1,000 mls @ 50 mls/hr IV ASDIRECTED [facility] Levothyroxine Sodium (Synthroid) 50 mcg PO MoTuWeThFrSa@0600 [facility] Last Admin: 08/08/20 06:05 Dose: 50 mcg Documented by: Levothyroxine Sodium (Synthroid) 100 mcg PO [place]aran[place]@0600 [facility] Loperamide HCl (Imodium) 2 mg PO Q12HR PRN PRN Reason: Diarrhea Losartan Potassium (Cozaar) 50 mg PO DAILY [facility] Megestrol Acetate (Megace 40 Mg/Ml Susp) 400 mg PO DAILY [facility] Last Admin: 08/07/20 08:36 Dose: 400 mg Documented by: Metoprolol Succinate (Toprol Xl) 25 mg PO DAILY [facility] Miscellaneous Information (Remove Patch) 0 ea TRDERM Q72H [facility] Multivitamins (Thera) 1 each PO DAILY [facility] Last Admin: 08/07/20 08:36 Dose: 1 each Documented by: Ganciclovir Ophth (Gel 0.15% Ptom) 0 each EYELF BID [facility] Last Admin: 08/07/20 20:25 Dose: 1 each Documented by: Ondansetron HCl (Zofran) 4 mg IV Q6H PRN PRN Reason: Nausea/Vomiting Last Admin: 08/07/20 04:06 Dose: 4 mg Documented by: Calcitonin ([place]) Nasal [place] Patient's Own Med 0 each SARAH DAILY [facility] Last Admin: 08/07/20 08:43 Dose: 1 each Documented by: Cyclosporine [ Restasis Ophth Drops ] Patient's Own Med 0 each EYEBOTH BID [facility] Last Admin: 08/07/20 20:26 Dose: 1 each Documented by: Polysaccharide Iron Complex (Ferrex 150) 150 mg PO DAILY [facility] Last Admin: 08/07/20 08:37 Dose: 150 mg Documented by: Prednisolone Acetate (Pred Forte 1% Ophth Susp) 0 ml EYEBOTH BID [facility] Last Admin: 08/07/20 20:26 Dose: 1 drop Documented by: Scopolamine (Transderm-Scop) 1.5 mg TRDERM Q72H [facility] Last Admin: 08/07/20 16:10 Dose: 1.5 mg Documented by: Sodium Bicarbonate (Sodium Bicarbonate) 650 mg PO BID [facility] Last Admin: 08/07/20 20:21 Dose: 650 mg Documented by: Sodium Chloride (Saline Flush) 10 ml FLUSH ASDIRECTED PRN PRN Reason: Keep Vein Open Last Admin: 08/06/20 11:19 Dose: 10 ml Documented by: Valacyclovir HCl (Valtrex) 1,000 mg PO DAILY [facility] Discontinued Medications Acetaminophen/Codeine Phosphate (Tylenol With Codeine No.3 300mg/30mg) 1 tab PO Q8H PRN PRN Reason: Pain Amitriptyline HCl (Elavil) 25 mg PO BEDTIME [facility] Amitriptyline HCl (Elavil) 25 mg PO BEDTIME [facility] Last Admin: 08/06/20 20:36 Dose: 25 mg Documented by: Cholestyramine Resin (Cholestyramine Packet) 4 gm PO DAILY [facility] Ezetimibe (Zetia) 10 mg PO DAILY [facility] Last Admin: 08/07/20 08:47 Dose: 10 mg Documented by: Famotidine (Pepcid) 20 mg PO DAILY [facility] Last Admin: 08/07/20 08:42 Dose: 20 mg Documented by: Ceftriaxone Sodium 2 gm/ (Sodium Chloride) 100 mls @ 200 mls/hr IV ONETIME ONE Stop: 08/06/20 11:42 Last Admin: 08/06/20 12:12 Dose: 200 mls/hr Documented by: Sodium Chloride (Normal Saline) 1,000 mls @ 1,000 mls/hr IV .BOLUS STA Stop: 08/06/20 12:10 Last Admin: 08/06/20 11:30 Dose: 1,000 mls/hr Documented by: Ceftriaxone Sodium 2 gm/ (Sodium Chloride) 100 mls @ 200 mls/hr IV Q24H [facility] Lactated Ringer's (Ringers, Lactated) 1,000 mls @ 50 mls/hr IV ASDIRECTED [facility] Stop: 08/07/20 09:59 Last Infusion: 08/07/20 10:12 Dose: 100 mls/hr Documented by: Magnesium Sulfate (Magnesium Sulfate In Water 2 Gm/50 Ml) 2 gm in 50 mls @ 25 mls/hr IV ONETIME ONE Stop: 08/07/20 09:59 Last Admin: 08/07/20 08:53 Dose: 25 mls/hr Documented by: Promethazine HCl 12.5 mg/ (Sodium Chloride) 50.5 mls @ 100 mls/hr IV ONETIME ONE Stop: 08/07/20 10:30 Last Admin: 08/07/20 11:02 Dose: 100 mls/hr Documented by: Lactated Ringer's (Ringers, Lactated) 1,000 mls @ 100 mls/hr IV ASDIRECTED [facility] Last Admin: 08/07/20 23:45 Dose: 100 mls/hr Documented by: Levothyroxine Sodium (Synthroid) 50 mcg PO MoTuWeThFrSa@0600 [facility] Last Admin: 08/07/20 06:36 Dose: 50 mcg Documented by: Levothyroxine Sodium (Synthroid) 100 mcg PO [place]@0600 [facility] Metoprolol Succinate (Toprol Xl) 25 mg PO DAILY [facility] Last Admin: 08/07/20 08:46 Dose: 25 mg Documented by: Ondansetron HCl (Zofran) 4 mg IVPUSH ONETIME ONE Stop: 08/06/20 11:12 Last Admin: 08/06/20 11:30 Dose: 4 mg Documented by: Olmesartan Medoxomil 20 Mg Patient's Own Med 0 each PO DAILY [facility] Last Admin: 08/07/20 08:44 Dose: 1 each Documented by: Prednisolone Acetate (Pred Forte 1% Ophth Susp) 0 ml EYELF 6XDAY [facility] Last Admin: 08/06/20 20:36 Dose: 1 drop Documented by: Sodium Bicarbonate (Sodium Bicarbonate) 650 mg PO BID [facility] Last Admin: 08/07/20 08:45 Dose: 650 mg Documented by: Valacyclovir HCl (Valtrex) 1,000 mg PO DAILY [facility] Last Admin: 08/07/20 08:47 Dose: 1,000 mg Documented by: - Exam Quality Assessment: DVT Prophylaxis General: Alert, Oriented, Cooperative HEENT: Pupils Equal, Pupils Reactive, Mucous Membr. Moist/[place] Neck: Supple, Trachea Midline Lungs: Clear to Auscultation, Normal Respiratory Effort Cardiovascular: Regular Rate, Regular Rhythm GI/Abdominal Exam: Normal Bowel Sounds, Soft, Non-Tender, No Distention (Female) Exam: Deferred Back Exam: Normal Inspection, Full Range of Motion Extremities: Normal Inspection, Normal Range of Motion, Non-Tender, No Pedal Edema, Normal Capillary Refill Skin: Warm, Dry, Intact Neurological: No New Focal Deficit Psy/Mental Status: Alert, Normal Affect, Normal Mood Sepsis Event Note - Evaluation Sepsis Screening Result: No Definite Risk - Focused Exam Vital Signs: Vital Signs Temp Pulse Resp BP Pulse Ox 08/08/20 01:05 97.9 F 77 16 132/84 100 08/07/20 20:08 98.2 F 78 16 126/90 100 - Problem List & Annotations (1) UTI (urinary tract infection) SNOMED Code(s): 62029317 Code(s): N39.0 - URINARY TRACT INFECTION, SITE NOT SPECIFIED Status: Resolved Priority: High Current Visit: Yes Qualifiers: Urinary tract infection type: acute cystitis Hematuria presence: without hematuria Qualified Code(s): N30.00 - Acute cystitis without hematuria (2) Nausea SNOMED Code(s): 770830223 Code(s): R11.0 - NAUSEA Status: Acute Priority: High Current Visit: Yes (3) Dehydration SNOMED Code(s): 41564305 Code(s): E86.0 - DEHYDRATION Status: Resolved Priority: High Current Visit: Yes (4) HLD (hyperlipidemia) SNOMED Code(s): 98480989 Code(s): E78.5 - HYPERLIPIDEMIA, UNSPECIFIED Status: Chronic Priority: Low Current Visit: No Qualifiers: Hyperlipidemia type: unspecified Qualified Code(s): E78.5 - Hyperlipidemia, unspecified (5) HTN (hypertension) SNOMED Code(s): 48481294 Code(s): I10 - ESSENTIAL (PRIMARY) HYPERTENSION Status: Chronic Priority: Medium Current Visit: No Qualifiers: Hypertension type: unspecified Qualified Code(s): I10 - Essential (primary) hypertension (6) Fibromyalgia SNOMED Code(s): 990530396 Code(s): M79.7 - FIBROMYALGIA Status: Chronic Priority: Low Current Visit: No (7) Arthritis SNOMED Code(s): 5211964 Code(s): M19.90 - UNSPECIFIED OSTEOARTHRITIS, UNSPECIFIED SITE Status: Chronic Priority: Low Current Visit: No (8) Hypoalbuminemia SNOMED Code(s): 632211529 Code(s): E88.09 - OTH DISORDERS OF PLASMA-PROTEIN METABOLISM, NEC Status: Acute Priority: High Current Visit: Yes (9) Weakness SNOMED Code(s): 02936631 Code(s): R53.1 - WEAKNESS Status: Acute Priority: High Current Visit: Yes (10) [id number] kidney injury SNOMED Code(s): 374075977 Code(s): N17.9 - ACUTE KIDNEY FAILURE, UNSPECIFIED; N18.9 - CHRONIC KIDNEY DISEASE, UNSPECIFIED Status: Acute Priority: High Current Visit: Yes Qualifiers: Acute renal failure type: unspecified Chronic kidney disease stage: stage 4 (severe) Qualified Code(s): N17.9 - Acute kidney failure, unspecified; N18.4 - Chronic kidney disease, stage 4 (severe) (11) Hypomagnesemia SNOMED Code(s): 682392845 Code(s): E83.42 - HYPOMAGNESEMIA Status: Resolved Priority: High Current Visit: Yes (12) Anemia SNOMED Code(s): 319383370 Code(s): D64.9 - ANEMIA, UNSPECIFIED Status: Acute Priority: High Current Visit: Yes Qualifiers: Anemia type: unspecified type Qualified Code(s): D64.9 - Anemia, unspecified - Problem List Review Problem List Initiated/Reviewed/Updated: Yes - My Orders Last 24 Hours: My Active Orders 08/07/20 07:00 Cholestyramine/Sucrose [Cholestyramine Packet] 4 gm PO DAILY@0700 08/07/20 09:00 Aspirin 81 mg PO DAILY Cholecalciferol (Vitamin D3) [Vitamin D3] 25 mcg PO DAILY Enoxaparin [Lovenox] 30 mg SUBCUT Q24H Iron Polysaccharides Complex [Ferrex 150] 150 mg PO DAILY Multivitamins,Therapeutic [Thera] 1 each PO DAILY Patient's Own Medication [Ptom] 0 each SARAH DAILY 08/07/20 09:31 Patient Status [ADT] Routine 08/07/20 11:00 cefTRIAXone [Rocephin] 1 gm Sodium Chloride 0.9% [Normal Saline] 100 ml IV Q24H 08/07/20 12:04 Acetaminophen/Codeine [Tylenol with Codeine No.3 300MG/30MG] 1 tab PO Q8H PRN 08/07/20 16:00 Scopolamine [Transderm-Scop] 1.5 mg TRDERM Q72H 08/07/20 21:00 Amitriptyline [Elavil] 25 mg PO BEDTIME 08/08/20 06:00 Levothyroxine [Synthroid] 50 mcg PO MoTuWeThFrSa@0600 08/08/20 07:19 OCCULT BLOOD DIAGNOSTIC [OP] Routine 08/08/20 07:20 PACKED CELLS [RED BLOOD CELLS LP] [BBK] Routine TYPE AND SCREEN [BBK] Routine Transfuse Red Blood Cells [COMM] Routine 08/08/20 07:30 Lactated Ringers [Ringers, Lactated] 1,000 ml IV ASDIRECTED 08/08/20 09:00 Ezetimibe [Zetia] 10 mg PO DAILY Famotidine [Pepcid] 20 mg PO DAILY Losartan [Cozaar] 50 mg PO DAILY Metoprolol Succinate [Toprol XL] 25 mg PO DAILY valACYclovir [Valtrex] 1,000 mg PO DAILY 08/09/20 05:11 CBC WITH AUTO DIFF [HEME] AM CMP [COMPREHENSIVE METABOLIC PN,CMP] [CHEM] AM MAGNESIUM [CHEM] AM 08/10/20 05:11 CBC WITH AUTO DIFF [HEME] AM CMP [COMPREHENSIVE METABOLIC PN,CMP] [CHEM] AM MAGNESIUM [CHEM] AM 08/10/20 16:00 Remove Patch 0 ea TRDERM Q72H 08/12/20 06:00 Levothyroxine [Synthroid] 100 mcg PO [place]@0600 - Assessment Assessment:: Assessment - day of admission 08/06/20 * 85yo female who presents to our ED via ambulance with urinary complaints, nausea and decreased appetite * Reportedly diagnosed with UTI at walk-in clinic on thursday08/03/20 and given cephalexin * Reports nausea and anorexia; also has chronic diarrhea * Denies any current urinary symptoms * Denies fever, cough, dyspnea * Labs in ED: * WBC 14.31 (likely worsened by dehydration) * Hgb 11.3 * Plt 415 * Neutrophils 10.90 * INR 1.02 * Sodium 139 * Potassium 4.1 * Carbon dioxide 18 * Anion gap 20.1 * BUN 51, Creatinin 1.8, GFR 27 * Glucose 132 * Calcium 10.2 * Bilirubin 0.4 * AST 49, ALT 108, Alk Phos 147 * Albumin 3.3 * Lipase 186 * Lactic acid 1.0 * Pro-BNP 1268 * UA Negative however trace protein noted * SARS-CoV-2 RNA negative * Given 1L fluid bolus, Zofran, and started on 2gm Rocephin in ED * Admitted observation status for further treatment of UTI and dehydration 08/07/20 * Remains nauseated * Reports epigastric pain, No BM (usually has chronic diarrhea), minimal urine output, Chills * Labs: * WBC 12.93 * Hemoglobin 8.0 * Platelets 306 * Neutrophils 8.74 * Sodium 139 * Potassium 3.7 * Carbon dioxide 19 * Anion gap 15.7 * BUN 52, Creatinine 1.5, GFR 33 * Magnesium 1.7 * AST 24, ALT 64, Alk Phos 90 * Protein 5.5 * Albumin 2.3 * Will add IV Phenergan for nausea * Increase IV fluids as patient continues to be dehydrated * Blood cultures pending. * Reviewed [place] Walk-In notes: Sommers Sensitive E. Coli, 30,000 CFUs. * Continue IV ABX pending blood cultures * Check troponin/CKMB due to abdominal pain, continued nausea * Upgraded to inpatient due to continuation of symptoms, minimal lab improvement, continued work-up of symptoms. 08/08/20 * Remains nauseated but improved * Will discontinue abx today as she has completed treatment * Blood cultures negative thus far * Labs: * WBC 10.47 * Hgb 6.9 * MCV 109.2 * Platelet 278 * Neutrophil 6.45 * Anion gap 13.7 * BUN 30; Creatinine 1.2; GFR 43 * Magnesium 2.1 * Albumin 2.0 * Blood smear shows 2+ macrocytosis, 1+ target cells, 1+ teardrop cells, platelets adequate with normal morphology * Will transfuse 1 unit PRBC * Discontinue IV fluids today * Re-check/monitor labs * Check reticulocyte count and monitor labs - Plan Plan:: Anemia * Transfuse 1 unit PRBC * Stop IV fluids * Reticulocyte count in AM * Occult stool * Review labs Acute on chronic renal insufficiency, appears to be at baseline Nausea, improved Hypoalbuminemia Weakness * Discontinue Rocephin today * Discontinue IV fluids * Antiemetics as ordered * Re-check AM labs * Receiving Specialist consult * Obtain old records * PT/OT for weakness * CM/SW HLD (hyperlipidemia) HTN (hypertension) Fibromyalgia Arthritis * No current concerns * Reconcile/review home medications Resolved: UTI (urinary tract infection) Dehydration Hypomagnesemia Code Status: Full code PCP: Dr. Bowman DVT Prophylaxis: Lovenox-> change to SCDs as patient has worsening anemia requiring transfusion Social: Patient lives in a house with her . They are talking about moving to and [place] in [place]. She normally gets around without assistance but has been utilizing a cane because she is so weak. Disposition: Patient admitted observation status for management of dehydration, nausea, and awaiting blood cultures. Upgraded to inpatient on 08/07/20 as patient remains weak, nauseated, complains of abdominal pain, and had minimal improvement on labs.
[2020-08-08] MEDS ORDERED: Sodium Chloride 0.9% 250 ML IV SCH (08:15)
[2020-08-08] MEDS: Megestrol Susp 40 MG/ML 10 ML UD Cup PO SCH (09:36)
[2020-08-08] MEDS: Sodium Bicarbonate 650 MG Tab PO SCH ×2 (09:36→20:20)
[2020-08-08] MEDS: Cholecalciferol (Vitamin D3) 25 MCG Tab PO SCH (09:36)
[2020-08-08] MEDS: Multivitamins,Therapeutic Tab PO SCH (09:36)
[2020-08-08] MEDS: Aspirin 81 MG Tab.Chew PO SCH (09:37)
[2020-08-08] MEDS: Losartan 50 MG Tab PO SCH (09:37)
[2020-08-08] MEDS: Famotidine 20 MG Tab PO SCH (09:38)
[2020-08-08] MEDS: valACYclovir 1,000 MG Tab PO SCH (09:38)
[2020-08-08] MEDS: Ezetimibe 10 MG Tab PO SCH (09:38)
[2020-08-08] MEDS: Metoprolol Succinate 25 MG Tab.ER PO SCH (09:39)
[2020-08-08] MEDS: Iron Polysaccharides Complex 150 MG Cap PO SCH (09:39)
[2020-08-08] MEDS: Enoxaparin 30 MG/0.3 ML Syringe SUBCUT SCH (09:41)
[2020-08-08] MEDS: CYCLOSPORINE EYEBOTH SCH ×2 (10:06→20:21)
[2020-08-08] MEDS: CALCITONIN NAS SCH (10:08)
[2020-08-08] MEDS: PREDNISOLONE ACETATE 1% EYEBOTH SCH ×2 (10:09→20:20)
[2020-08-08] MEDS: GANCICLOVIR 0.15% EYELF SCH ×2 (10:10→20:20)
[2020-08-08] MEDS: Amitriptyline 25 MG Tab PO SCH (20:20)
[2020-08-09] MEDS: Cholestyramine/Sucrose Powder 4 GM Packet PO SCH (06:18)
[2020-08-09] MEDS: Levothyroxine 50 MCG Tab PO SCH (06:18)
--- NOTE | 2020-08-09 07:17 | PCM.PN ---
- General Info Date of Service: 08/09/20 Admission Dx/Problem (Free Text): Dehydration post UTI Subjective Update: In to see Satya. She reports she feels better today. She still has some mild nausea but it is controlled. She reports she had a liquid stool. No other concerns. Labs have improved. We will recheck labs tomorrow morning with plan for discharge tomorrow pending continued stability. Functional Status: Reports: Pain Controlled, Tolerating Diet, Ambulating, Urinating. Denies: New Symptoms - Review of Systems General: Reports: Weakness. Denies: Fever, Fatigue, Malaise, Chills HEENT: Reports: No Symptoms. Denies: Headaches, Sore Throat Pulmonary: Reports: No Symptoms. Denies: Shortness of Breath, Cough, Sputum, Wheezing Cardiovascular: Reports: No Symptoms. Denies: Chest Pain, Palpitations, Dyspnea on Exertion, Edema Gastrointestinal: Reports: Diarrhea (chronic ), Nausea (very minimal ). Denies: Abdominal Pain, Constipation, Vomiting Genitourinary: Reports: No Symptoms. Denies: Pain Musculoskeletal: Reports: No Symptoms Skin: Reports: No Symptoms. Denies: Cyanosis Neurological: Reports: Difficulty Walking, Weakness, Gait Disturbance. Denies: Confusion Psychiatric: Reports: No Symptoms - Patient Data Vitals - Most Recent: Last Vital Signs Temp 97.7 F 08/09/20 03:50 Pulse 78 08/09/20 03:50 Resp 16 08/09/20 03:50 BP 142/85 H 08/09/20 03:50 Pulse Ox 100 08/09/20 03:50 Weight - Most Recent: 95 lb 9.6 oz I&O - Last 24 Hours: Intake & Output 08/08/20 08/09/20 08/09/20 22:59 06:59 14:59 Intake Total 1650 280 Output Total 350 300 Balance 1300 -20 Lab Results Last 24 Hours: Laboratory Results - last 24 hr 08/08/20 08/09/20 08/09/20 Range/Units 05:42 04:44 04:44 WBC 11.71 H (3.98-10.04) K/mm3 RBC 2.64 L (3.98-5.22) M/mm3 Hgb 8.8 L D (11.2-15.7) gm/dl Hct 27.1 L (34.1-44.9) % MCV 102.7 H D (79.4-94.8) fl MCH 33.3 H (25.6-32.2) pg MCHC 32.5 (32.2-35.5) g/dl RDW Std Deviation 64.2 H (36.4-46.3) fL Plt Count 267 (182-369) K/mm3 MPV 9.9 (9.4-12.3) fl Neut % (Auto) 66.9 (34.0-71.1) % Lymph % (Auto) 20.3 (19.3-51.7) % [place] % (Auto) 8.0 (4.7-12.5) % Eos % (Auto) 3.4 (0.7-5.8) Baso % (Auto) 0.4 (0.1-1.2) % Neut # (Auto) 7.82 H (1.56-6.13) K/mm3 Lymph # (Auto) 2.38 (1.18-3.74) K/mm3 [place] # (Auto) 0.94 H (0.24-0.36) K/mm3 Eos # (Auto) 0.40 H (0.04-0.36) K/mm3 Baso # (Auto) 0.05 (0.01-0.08) K/mm3 Manual Slide Review Abnormal smear Percent Retic 2.13 H (0.50-1.70) % Sodium 141 (136-145) mEq/L Potassium 3.9 (3.5-5.1) mEq/L Chloride 108 H (98-107) mEq/L Carbon Dioxide 21 (21-32) mEq/L Anion Gap 15.9 H (5-15) BUN 31 H (7-18) mg/dL Creatinine 1.2 H (0.55-1.02) mg/dL Est Cr Clr Drug Dosing 23.04 mL/min Estimated GFR (MDRD) 43 (>60) mL/min BUN/Creatinine Ratio 25.8 H (14-18) Glucose 78 L (83-115) mg/dL Calcium 8.4 L (8.5-10.1) mg/dL Magnesium 2.0 (1.8-2.4) mg/dl Total Bilirubin 0.6 (0.2-1.0) mg/dL AST 25 (15-37) U/L ALT 55 (14-59) U/L Alkaline Phosphatase 76 (46-116) U/L Total Protein 5.1 L (6.4-8.2) g/dl Albumin 2.3 L (3.4-5.0) g/dl Globulin 2.8 gm/dL Albumin/Globulin Ratio 0.8 L (1-2) Blood Type A POSITIVE Gel Antibody Screen Negative Crossmatch See Detail [place] Results Last 24 Hours: Microbiology 08/06/20 12:00 Aerobic Blood Culture - Preliminary Blood - Venous NO GROWTH AFTER 2 DAYS Anaerobic Blood Culture - Final 08/06/20 12:05 Aerobic Blood Culture - Preliminary Blood - Venous - Lab Draw NO GROWTH AFTER 2 DAYS Anaerobic Blood Culture - Preliminary NO GROWTH AFTER 2 DAYS Med Orders - Current: Current Medications Acetaminophen (Tylenol) 650 mg PO Q4H PRN PRN Reason: Pain (Mild 1-3)/fever Acetaminophen/Codeine Phosphate (Tylenol With Codeine No.3 300mg/30mg) 1 tab PO Q8H PRN PRN Reason: Pain Amitriptyline HCl (Elavil) 25 mg PO BEDTIME [facility] Last Admin: 08/08/20 20:20 Dose: 25 mg Documented by: Artificial Tears (Refresh Liquigel 1%) 1 - 2 ml EYEBOTH ASDIRECTED PRN PRN Reason: Dry Eyes Aspirin (Aspirin) 81 mg PO DAILY [facility] Last Admin: 08/08/20 09:37 Dose: 81 mg Documented by: Cholecalciferol (Vitamin D3) 25 mcg PO DAILY [facility] Last Admin: 08/08/20 09:36 Dose: 25 mcg Documented by: Cholestyramine Resin (Cholestyramine Packet) 4 gm PO DAILY@0700 [facility] Last Admin: 08/09/20 06:18 Dose: 4 gm Documented by: Ezetimibe (Zetia) 10 mg PO DAILY [facility] Last Admin: 08/08/20 09:38 Dose: 10 mg Documented by: Famotidine (Pepcid) 20 mg PO DAILY [facility] Last Admin: 08/08/20 09:38 Dose: 20 mg Documented by: Sodium Chloride (Normal Saline) 250 mls @ 100 mls/hr IV ASDIRECTED [facility] Last Admin: 08/08/20 13:39 Dose: 100 mls/hr Documented by: Levothyroxine Sodium (Synthroid) 50 mcg PO MoTuWeThFrSa@0600 [facility] Last Admin: 08/09/20 06:18 Dose: 50 mcg Documented by: Levothyroxine Sodium (Synthroid) 100 mcg PO Naran[place]@0600 [facility] Loperamide HCl (Imodium) 2 mg PO Q12HR PRN PRN Reason: Diarrhea Losartan Potassium (Cozaar) 50 mg PO DAILY [facility] Last Admin: 08/08/20 09:37 Dose: 50 mg Documented by: Megestrol Acetate (Megace 40 Mg/Ml Susp) 400 mg PO DAILY [facility] Last Admin: 08/08/20 09:36 Dose: 400 mg Documented by: Metoprolol Succinate (Toprol Xl) 25 mg PO DAILY [facility] Last Admin: 08/08/20 09:39 Dose: 25 mg Documented by: Miscellaneous Information (Remove Patch) 0 ea TRDERM Q72H [facility] Multivitamins (Thera) 1 each PO DAILY [facility] Last Admin: 08/08/20 09:36 Dose: 1 each Documented by: Ganciclovir Ophth (Gel 0.15% Ptom) 0 each EYELF BID [facility] Last Admin: 08/08/20 20:20 Dose: 1 each Documented by: Ondansetron HCl (Zofran) 4 mg IV Q6H PRN PRN Reason: Nausea/Vomiting Last Admin: 08/07/20 04:06 Dose: 4 mg Documented by: Calcitonin ([place]) Nasal [place] Patient's Own Med 0 each SARAH DAILY [facility] Last Admin: 08/08/20 10:08 Dose: 1 each Documented by: Cyclosporine [ Restasis Ophth Drops ] Patient's Own Med 0 each EYEBOTH BID [facility] Last Admin: 08/08/20 20:21 Dose: 1 each Documented by: Polysaccharide Iron Complex (Ferrex 150) 150 mg PO DAILY [facility] Last Admin: 08/08/20 09:39 Dose: 150 mg Documented by: Prednisolone Acetate (Pred Forte 1% Ophth Susp) 0 ml EYEBOTH BID [facility] Last Admin: 08/08/20 20:20 Dose: 1 drop Documented by: Scopolamine (Transderm-Scop) 1.5 mg TRDERM Q72H [facility] Last Admin: 08/07/20 16:10 Dose: 1.5 mg Documented by: Sodium Bicarbonate (Sodium Bicarbonate) 650 mg PO BID [facility] Last Admin: 08/08/20 20:20 Dose: 650 mg Documented by: Sodium Chloride (Saline Flush) 10 ml FLUSH ASDIRECTED PRN PRN Reason: Keep Vein Open Last Admin: 08/06/20 11:19 Dose: 10 ml Documented by: Valacyclovir HCl (Valtrex) 1,000 mg PO DAILY [facility] Last Admin: 08/08/20 09:38 Dose: 1,000 mg Documented by: Discontinued Medications Acetaminophen/Codeine Phosphate (Tylenol With Codeine No.3 300mg/30mg) 1 tab PO Q8H PRN PRN Reason: Pain Amitriptyline HCl (Elavil) 25 mg PO BEDTIME [facility] Amitriptyline HCl (Elavil) 25 mg PO BEDTIME [facility] Last Admin: 08/06/20 20:36 Dose: 25 mg Documented by: Cholestyramine Resin (Cholestyramine Packet) 4 gm PO DAILY [facility] Ezetimibe (Zetia) 10 mg PO DAILY [facility] Last Admin: 08/07/20 08:47 Dose: 10 mg Documented by: Enoxaparin Sodium (Lovenox) 30 mg SUBCUT Q24H [facility] Last Admin: 08/08/20 09:41 Dose: Not Given Documented by: Famotidine (Pepcid) 20 mg PO DAILY [facility] Last Admin: 08/07/20 08:42 Dose: 20 mg Documented by: Ceftriaxone Sodium 2 gm/ (Sodium Chloride) 100 mls @ 200 mls/hr IV ONETIME ONE Stop: 08/06/20 11:42 Last Admin: 08/06/20 12:12 Dose: 200 mls/hr Documented by: Sodium Chloride (Normal Saline) 1,000 mls @ 1,000 mls/hr IV .BOLUS STA Stop: 08/06/20 12:10 Last Admin: 08/06/20 11:30 Dose: 1,000 mls/hr Documented by: Ceftriaxone Sodium 2 gm/ (Sodium Chloride) 100 mls @ 200 mls/hr IV Q24H [facility] Lactated Ringer's (Ringers, Lactated) 1,000 mls @ 50 mls/hr IV ASDIRECTED [facility] Stop: 08/07/20 09:59 Last Infusion: 08/07/20 10:12 Dose: 100 mls/hr Documented by: Ceftriaxone Sodium 1 gm/ (Sodium Chloride) 100 mls @ 200 mls/hr IV Q24H [facility] Last Admin: 08/07/20 11:59 Dose: 200 mls/hr Documented by: Magnesium Sulfate (Magnesium Sulfate In Water 2 Gm/50 Ml) 2 gm in 50 mls @ 25 mls/hr IV ONETIME ONE Stop: 08/07/20 09:59 Last Admin: 08/07/20 08:53 Dose: 25 mls/hr Documented by: Promethazine HCl 12.5 mg/ (Sodium Chloride) 50.5 mls @ 100 mls/hr IV ONETIME ONE Stop: 08/07/20 10:30 Last Admin: 08/07/20 11:02 Dose: 100 mls/hr Documented by: Lactated Ringer's (Ringers, Lactated) 1,000 mls @ 100 mls/hr IV ASDIRECTED [facility] Last Admin: 08/07/20 23:45 Dose: 100 mls/hr Documented by: Lactated Ringer's (Ringers, Lactated) 1,000 mls @ 50 mls/hr IV ASDIRECTED [facility] Levothyroxine Sodium (Synthroid) 50 mcg PO MoTuWeThFrSa@0600 [facility] Last Admin: 08/07/20 06:36 Dose: 50 mcg Documented by: Levothyroxine Sodium (Synthroid) 100 mcg PO [place]@0600 [facility] Metoprolol Succinate (Toprol Xl) 25 mg PO DAILY [facility] Last Admin: 08/07/20 08:46 Dose: 25 mg Documented by: Ondansetron HCl (Zofran) 4 mg IVPUSH ONETIME ONE Stop: 08/06/20 11:12 Last Admin: 08/06/20 11:30 Dose: 4 mg Documented by: Olmesartan Medoxomil 20 Mg Patient's Own Med 0 each PO DAILY [facility] Last Admin: 08/07/20 08:44 Dose: 1 each Documented by: Prednisolone Acetate (Pred Forte 1% Ophth Susp) 0 ml EYELF 6XDAY [facility] Last Admin: 08/06/20 20:36 Dose: 1 drop Documented by: Sodium Bicarbonate (Sodium Bicarbonate) 650 mg PO BID [facility] Last Admin: 08/07/20 08:45 Dose: 650 mg Documented by: Valacyclovir HCl (Valtrex) 1,000 mg PO DAILY [facility] Last Admin: 08/07/20 08:47 Dose: 1,000 mg Documented by: - Exam Quality Assessment: DVT Prophylaxis. No: Supplemental Oxygen, Urine Catheter General: Alert, Oriented, Cooperative, No Acute Distress HEENT: Pupils Equal, Pupils Reactive, Mucous Membr. Moist/[place] Ne[place]: Supple, Trachea Midline Lungs: Clear to Auscultation, Normal Respiratory Effort Cardiovascular: Regular Rate, Regular Rhythm GI/Abdominal Exam: Normal Bowel Sounds, Soft, Non-Tender, No Distention (Female) Exam: Deferred Back Exam: Normal Inspection, Full Range of Motion Extremities: Normal Inspection, Normal Range of Motion, Non-Tender, No Pedal Edema, Normal Capillary Refill Skin: Warm, Dry, Intact Neurological: No New Focal Deficit Psy/Mental Status: Alert, Normal Affect, Normal Mood Sepsis Event Note - Evaluation Sepsis Screening Result: No Definite Risk - Focused Exam Vital Signs: Vital Signs Temp Pulse Resp BP Pulse Ox 08/09/20 03:50 97.7 F 78 16 142/85 H 100 08/08/20 23:22 97.5 F 87 16 150/81 H 98 08/08/20 19:33 97.3 F 85 12 131/99 H 100 - Problem List & Annotations (1) UTI (urinary tract infection) SNOMED Code(s): 90100318 Code(s): N39.0 - URINARY TRACT INFECTION, SITE NOT SPECIFIED Status: Resolved Priority: High Current Visit: Yes Qualifiers: Urinary tract infection type: acute cystitis Hematuria presence: without hematuria Qualified Code(s): N30.00 - Acute cystitis without hematuria (2) Nausea SNOMED Code(s): 468270768 Code(s): R11.0 - NAUSEA Status: Acute Priority: High Current Visit: Yes (3) Dehydration SNOMED Code(s): 71837633 Code(s): E86.0 - DEHYDRATION Status: Resolved Priority: High Current Visit: Yes (4) HLD (hyperlipidemia) SNOMED Code(s): 00554060 Code(s): E78.5 - HYPERLIPIDEMIA, UNSPECIFIED Status: Chronic Priority: Low Current Visit: No Qualifiers: Hyperlipidemia type: unspecified Qualified Code(s): E78.5 - Hyperlipidemia, unspecified (5) HTN (hypertension) SNOMED Code(s): 89235127 Code(s): I10 - ESSENTIAL (PRIMARY) HYPERTENSION Status: Chronic Priority: Medium Current Visit: No Qualifiers: Hypertension type: unspecified Qualified Code(s): I10 - Essential (primary) hypertension (6) Fibromyalgia SNOMED Code(s): 335925896 Code(s): M79.7 - FIBROMYALGIA Status: Chronic Priority: Low Current Visit: No (7) Arthritis SNOMED Code(s): 9147672 Code(s): M19.90 - UNSPECIFIED OSTEOARTHRITIS, UNSPECIFIED SITE Status: Chronic Priority: Low Current Visit: No (8) Hypoalbuminemia SNOMED Code(s): 658670673 Code(s): E88.09 - OTH DISORDERS OF PLASMA-PROTEIN METABOLISM, NEC Status: Acute Priority: High Current Visit: Yes (9) Weakness SNOMED Code(s): 14150322 Code(s): R53.1 - WEAKNESS Status: Acute Priority: High Current Visit: Yes (10) [id number]-[id number] kidney injury SNOMED Code(s): 057238566 Code(s): N17.9 - ACUTE KIDNEY FAILURE, UNSPECIFIED; N18.9 - CHRONIC KIDNEY DISEASE, UNSPECIFIED Status: Acute Priority: High Current Visit: Yes Qualifiers: Acute renal failure type: unspecified Chronic kidney disease stage: stage 4 (severe) Qualified Code(s): N17.9 - Acute kidney failure, unspecified; N18.4 - Chronic kidney disease, stage 4 (severe) (11) Hypomagnesemia SNOMED Code(s): 054289265 Code(s): E83.42 - HYPOMAGNESEMIA Status: Resolved Priority: High Current Visit: Yes (12) Anemia SNOMED Code(s): 603603128 Code(s): D64.9 - ANEMIA, UNSPECIFIED Status: Acute Priority: High Curr ent Visit: Yes Qualifiers: Anemia type: unspecified type Qualified Code(s): D64.9 - Anemia, unspecified - Problem List Review Problem List Initiated/Reviewed/Updated: Yes - My Orders Last 24 Hours: My Active Orders 08/08/20 07:20 Transfuse Red Blood Cells [COMM] Routine 08/08/20 08:15 Sodium Chloride 0.9% [Normal Saline] 250 ml IV ASDIRECTED 08/08/20 09:00 Ezetimibe [Zetia] 10 mg PO DAILY Famotidine [Pepcid] 20 mg PO DAILY Losartan [Cozaar] 50 mg PO DAILY Metoprolol Succinate [Toprol XL] 25 mg PO DAILY valACYclovir [Valtrex] 1,000 mg PO DAILY 08/08/20 10:26 Antiembolic Devices [RC] PER UNIT ROUTINE SCD [Sequential Compression Device] [OM.PC] Routine 08/10/20 05:11 CBC WITH AUTO DIFF [HEME] AM CMP [COMPREHENSIVE METABOLIC PN,CMP] [CHEM] AM MAGNESIUM [CHEM] AM 08/10/20 16:00 Remove Patch 0 ea TRDERM Q72H 08/12/20 06:00 Levothyroxine [Synthroid] 100 mcg PO Naranjo@0600 - Assessment Assessment:: Assessment - day of admission 08/06/20 * 85yo female who presents to our ED via ambulance with urinary complaints, nausea and decreased appetite * Reportedly diagnosed with UTI at walk-in clinic on thursday08/03/20 and given cephalexin * Reports nausea and anorexia; also has chronic diarrhea * Denies any current urinary symptoms * Denies fever, cough, dyspnea * Labs in ED: * WBC 14.31 (likely worsened by dehydration) * Hgb 11.3 * Plt 415 * Neutrophils 10.90 * INR 1.02 * Sodium 139 * Potassium 4.1 * Carbon dioxide 18 * Anion gap 20.1 * BUN 51, Creatinin 1.8, GFR 27 * Glucose 132 * Calcium 10.2 * Bilirubin 0.4 * AST 49, ALT 108, Alk Phos 147 * Albumin 3.3 * Lipase 186 * Lactic acid 1.0 * Pro-BNP 1268 * UA Negative however trace protein noted * SARS-CoV-2 RNA negative * Given 1L fluid bolus, Zofran, and started on 2gm Rocephin in ED * Admitted observation status for further treatment of UTI and dehydration 08/07/20 * Remains nauseated * Reports epigastric pain, No BM (usually has chronic diarrhea), minimal urine output, Chills * Labs: * WBC 12.93 * Hemoglobin 8.0 * Platelets 306 * Neutrophils 8.74 * Sodium 139 * Potassium 3.7 * Carbon dioxide 19 * Anion gap 15.7 * BUN 52, Creatinine 1.5, GFR 33 * Magnesium 1.7 * AST 24, ALT 64, Alk Phos 90 * Protein 5.5 * Albumin 2.3 * Will add IV Phenergan for nausea * Increase IV fluids as patient continues to be dehydrated * Blood cultures pending. * Reviewed [facility] notes: Sommers Sensitive E. Coli, 30,000 CFUs. * Continue IV ABX pending blood cultures * Check troponin/CKMB due to abdominal pain, continued nausea * Upgraded to inpatient due to continuation of symptoms, minimal lab improvement, continued work-up of symptoms. 08/08/20 * Remains nauseated but improved * Will discontinue abx today as she has completed treatment * Blood cultures negative thus far * Labs: * WBC 10.47 * Hgb 6.9 * MCV 109.2 * Platelet 278 * Neutrophil 6.45 * Anion gap 13.7 * BUN 30; Creatinine 1.2; GFR 43 * Magnesium 2.1 * Albumin 2.0 * Blood smear shows 2+ macrocytosis, 1+ target cells, 1+ teardrop cells, platelets adequate with normal morphology * Will transfuse 1 unit PRBC * Discontinue IV fluids today * Re-check/monitor labs * Check reticulocyte count and monitor labs 08/09/20 * Continues to be nauseated but states that it is still better than yesterday * Antibiotics and IV fluids were discontinued yesterday. * Received 1 unit PRBCs yesterday * Labs today: * WBC 11.71 * Hemoglobin 8.8 * MCV 102.7 * Platelets 267 * Neutrophils 7.82 * BUN 31, creatinine 1.2, GFR 43 * Albumin 2.3 * % reticulocytes 2.13 * Continue current treatment plan * Hopeful for discharge tomorrow - 08/10/20 - Plan Plan:: Anemia, S/P 1 unit PRBCs * Re-check labs tomorrow * Patient on iron supplementation so occult stool is useless * Continue to monitor - expect some decrease in hgb due to 2 gram increase from one unit PRBCs Acute on chronic renal insufficiency, appears to be at baseline Nausea, improved Hypoalbuminemia Weakness * Antiemetics as ordered * Re-check AM labs * [employer] consult * Obtain old records * PT/OT for weakness * CM/SW HLD (hyperlipidemia) HTN (hypertension) Fibromyalgia Arthritis * No current concerns * Reconcile/review home medications Resolved: UTI (urinary tract infection) Dehydration Hypomagnesemia Code Status: Full code PCP: Dr. Bowman DVT Prophylaxis: Lovenox-> change to SCDs as patient has worsening anemia requiring transfusion Social: Patient lives in a house with her . They are talking about moving to and [place] in [place]. She normally gets around without assistance but has been utilizing a cane because she is so weak. Disposition: Patient admitted observation status for management of dehydration, nausea, and awaiting blood cultures. Upgraded to inpatient on 08/07/20 as patient remains weak, nauseated, complains of abdominal pain, and had minimal improvement on labs. Likely discharge on 08/10/20 pending continued stability.
[2020-08-09] MEDS: valACYclovir 1,000 MG Tab PO SCH (08:21)
[2020-08-09] MEDS: Metoprolol Succinate 25 MG Tab.ER PO SCH (08:21)
[2020-08-09] MEDS: Iron Polysaccharides Complex 150 MG Cap PO SCH (08:21)
[2020-08-09] MEDS: Cholecalciferol (Vitamin D3) 25 MCG Tab PO SCH (08:22)
[2020-08-09] MEDS: Aspirin 81 MG Tab.Chew PO SCH (08:22)
[2020-08-09] MEDS: Ezetimibe 10 MG Tab PO SCH (08:22)
[2020-08-09] MEDS: Multivitamins,Therapeutic Tab PO SCH (08:23)
[2020-08-09] MEDS: Sodium Bicarbonate 650 MG Tab PO SCH ×2 (08:23→20:08)
[2020-08-09] MEDS: Megestrol Susp 40 MG/ML 10 ML UD Cup PO SCH (08:23)
[2020-08-09] MEDS: Famotidine 20 MG Tab PO SCH (08:23)
[2020-08-09] MEDS: Losartan 50 MG Tab PO SCH (08:23)
[2020-08-09] MEDS: GANCICLOVIR 0.15% EYELF SCH ×2 (08:27→20:09)
[2020-08-09] MEDS: PREDNISOLONE ACETATE 1% EYEBOTH SCH ×2 (08:28→20:08)
[2020-08-09] MEDS: CYCLOSPORINE EYEBOTH SCH ×2 (08:28→20:09)
[2020-08-09] MEDS: CALCITONIN NAS SCH (08:52)
[2020-08-09] MEDS: Amitriptyline 25 MG Tab PO SCH (20:08)
[2020-08-10] MEDS: Levothyroxine 50 MCG Tab PO SCH (06:07)
[2020-08-10] MEDS: Cholestyramine/Sucrose Powder 4 GM Packet PO SCH (06:07)
[2020-08-10] MEDS: Megestrol Susp 40 MG/ML 10 ML UD Cup PO SCH (08:40)
[2020-08-10] MEDS: Ezetimibe 10 MG Tab PO SCH (08:41)
[2020-08-10] MEDS: valACYclovir 1,000 MG Tab PO SCH (08:41)
[2020-08-10] MEDS: Losartan 50 MG Tab PO SCH (08:41)
[2020-08-10] MEDS: Sodium Bicarbonate 650 MG Tab PO SCH ×2 (08:42→21:22)
[2020-08-10] MEDS: Metoprolol Succinate 25 MG Tab.ER PO SCH (08:42)
[2020-08-10] MEDS: Famotidine 20 MG Tab PO SCH (08:42)
[2020-08-10] MEDS: Aspirin 81 MG Tab.Chew PO SCH (08:42)
[2020-08-10] MEDS: Multivitamins,Therapeutic Tab PO SCH (08:42)
[2020-08-10] MEDS: Cholecalciferol (Vitamin D3) 25 MCG Tab PO SCH (08:42)
[2020-08-10] MEDS: PREDNISOLONE ACETATE 1% EYEBOTH SCH ×2 (08:43→21:25)
[2020-08-10] MEDS: Iron Polysaccharides Complex 150 MG Cap PO SCH (08:43)
[2020-08-10] MEDS: CALCITONIN NAS SCH (08:46)
[2020-08-10] MEDS: CYCLOSPORINE EYEBOTH SCH ×2 (08:49→21:26)
--- NOTE | 2020-08-10 09:02 | CR ---
Chest: PA and lateral views of the chest were obtained. Comparison: Prior chest x-ray of 08/11/16. Heart size and mediastinum are normal. Lungs show no acute parenchymal change. Numerous compression deformities are noted within the lower thoracic spine with one area of previous vertebroplasty. Kyphosis is also noted. Compression deformities appear slightly increased from prior study. No acute abnormality is otherwise seen within the bony structures. Impression: 1. Degenerative change within the spine with compression deformities and scoliosis. Compression deformities are slightly increased from prior study. 2. Nothing acute is otherwise seen on 2 view chest x-ray. Diagnostic code #2
[2020-08-10] MEDS: GANCICLOVIR 0.15% EYELF SCH ×2 (09:03→21:25)
--- NOTE | 2020-08-10 11:29 | PCM.PN ---
- General Info Date of Service: 08/10/20 Admission Dx/Problem (Free Text): Dehydration post UTI Functional Status: Reports: Pain Controlled, Tolerating Diet, Ambulating, Urinating - Review of Systems General: Reports: Weakness. Denies: Fever, Fatigue, Malaise, Chills HEENT: Reports: No Symptoms. Denies: Headaches, Visual Changes Pulmonary: Reports: No Symptoms. Denies: Shortness of Breath, Cough, Sputum, Wheezing Cardiovascular: Reports: No Symptoms. Denies: Chest Pain, Palpitations, Dyspnea on Exertion Gastrointestinal: Reports: Abdominal Pain (epigastric ), Diarrhea (chronic ), Melena. Denies: Constipation, Vomiting Genitourinary: Reports: No Symptoms. Denies: Pain Musculoskeletal: Reports: No Symptoms Skin: Reports: No Symptoms. Denies: Cyanosis Neurological: Reports: Difficulty Walking (mild ). Denies: Confusion, Gait Disturbance Psychiatric: Reports: No Symptoms - Patient Data Vitals - Most Recent: Last Vital Signs Temp 97.9 F 08/10/20 07:30 Pulse 83 08/10/20 08:42 Resp 20 08/10/20 07:30 BP 121/58 L 08/10/20 08:42 Pulse Ox 98 08/10/20 07:30 Weight - Most Recent: 96 lb 3.2 oz I&O - Last 24 Hours: Intake & Output 08/09/20 08/10/20 08/10/20 22:59 06:59 14:59 Intake Total 1090 400 Output Total 300 Balance 1090 100 Lab Results Last 24 Hours: Laboratory Results - last 24 hr 08/10/20 08/10/20 Range/Units 05:09 05:09 WBC 14.18 H (3.98-10.04) K/mm3 RBC 2.36 L (3.98-5.22) M/mm3 Hgb 7.8 L (11.2-15.7) gm/dl Hct 24.6 L (34.1-44.9) % MCV 104.2 H (79.4-94.8) fl MCH 33.1 H (25.6-32.2) pg MCHC 31.7 L (32.2-35.5) g/dl RDW Std Deviation 65.1 H (36.4-46.3) fL Plt Count 272 (182-369) K/mm3 MPV 10.1 (9.4-12.3) fl Neut % (Auto) 71.4 H (34.0-71.1) % Lymph % (Auto) 17.7 L (19.3-51.7) % [place] % (Auto) 6.1 (4.7-12.5) % Eos % (Auto) 4.1 (0.7-5.8) Baso % (Auto) 0.1 (0.1-1.2) % Neut # (Auto) 10.12 H (1.56-6.13) K/mm3 Lymph # (Auto) 2.51 (1.18-3.74) K/mm3 [place] # (Auto) 0.87 H (0.24-0.36) K/mm3 Eos # (Auto) 0.58 H (0.04-0.36) K/mm3 Baso # (Auto) 0.02 (0.01-0.08) K/mm3 Manual Slide Review Abnormal smear Sodium 143 (136-145) mEq/L Potassium 3.8 (3.5-5.1) mEq/L Chloride 111 H (98-107) mEq/L Carbon Dioxide 20 L (21-32) mEq/L Anion Gap 15.8 H (5-15) BUN 34 H (7-18) mg/dL Creatinine 1.2 H (0.55-1.02) mg/dL Est Cr Clr Drug Dosing 23.18 mL/min Estimated GFR (MDRD) 43 (>60) mL/min BUN/Creatinine Ratio 28.3 H (14-18) Glucose 84 (83-115) mg/dL Calcium 8.5 (8.5-10.1) mg/dL Magnesium 1.8 (1.8-2.4) mg/dl Total Bilirubin 0.3 (0.2-1.0) mg/dL AST 20 (15-37) U/L ALT 41 (14-59) U/L Alkaline Phosphatase 61 (46-116) U/L Total Protein 4.9 L (6.4-8.2) g/dl Albumin 2.1 L (3.4-5.0) g/dl Globulin 2.8 gm/dL Albumin/Globulin Ratio 0.8 L (1-2) [place] Results Last 24 Hours: Microbiology 08/06/20 12:00 Aerobic Blood Culture - Preliminary Blood - Venous NO GROWTH AFTER 3 DAYS Anaerobic Blood Culture - Final 08/06/20 12:05 Aerobic Blood Culture - Preliminary Blood - Venous - Lab Draw NO GROWTH AFTER 3 DAYS Anaerobic Blood Culture - Preliminary NO GROWTH AFTER 3 DAYS Med Orders - Current: Current Medications Acetaminophen (Tylenol) 650 mg PO Q4H PRN PRN Reason: Pain (Mild 1-3)/fever Acetaminophen/Codeine Phosphate (Tylenol With Codeine No.3 300mg/30mg) 1 tab PO Q8H PRN PRN Reason: Pain Amitriptyline HCl (Elavil) 25 mg PO BEDTIME [facility] Last Admin: 08/09/20 20:08 Dose: 25 mg Documented by: Artificial Tears (Refresh Liquigel 1%) 1 - 2 ml EYEBOTH ASDIRECTED PRN PRN Reason: Dry Eyes Aspirin (Aspirin) 81 mg PO DAILY [facility] Last Admin: 08/10/20 08:42 Dose: 81 mg Documented by: Cholecalciferol (Vitamin D3) 25 mcg PO DAILY [facility] Last Admin: 08/10/20 08:42 Dose: 25 mcg Documented by: Cholestyramine Resin (Cholestyramine Packet) 4 gm PO DAILY@0700 [facility] Last Admin: 08/10/20 06:07 Dose: 4 gm Documented by: Ezetimibe (Zetia) 10 mg PO DAILY [facility] Last Admin: 08/10/20 08:41 Dose: 10 mg Documented by: Famotidine (Pepcid) 20 mg PO DAILY [facility] Last Admin: 08/10/20 08:42 Dose: 20 mg Documented by: Levothyroxine Sodium (Synthroid) 50 mcg PO MoTuWeThFrSa@0600 [facility] Last Admin: 08/10/20 06:07 Dose: 50 mcg Documented by: Levothyroxine Sodium (Synthroid) 100 mcg PO [place]@0600 [facility] Loperamide HCl (Imodium) 2 mg PO Q12HR PRN PRN Reason: Diarrhea Last Admin: 08/10/20 09:03 Dose: 2 mg Documented by: Losartan Potassium (Cozaar) 50 mg PO DAILY [facility] Last Admin: 08/10/20 08:41 Dose: 50 mg Documented by: Megestrol Acetate (Megace 40 Mg/Ml Susp) 400 mg PO DAILY [facility] Last Admin: 08/10/20 08:40 Dose: 400 mg Documented by: Metoprolol Succinate (Toprol Xl) 25 mg PO DAILY [facility] Last Admin: 08/10/20 08:42 Dose: 25 mg Documented by: Miscellaneous Information (Remove Patch) 0 ea TRDERM Q72H [facility] Multivitamins (Thera) 1 each PO DAILY [facility] Last Admin: 08/10/20 08:42 Dose: 1 each Documented by: Ganciclovir Ophth (Gel 0.15% Ptom) 0 each EYELF BID [facility] Last Admin: 08/10/20 09:03 Dose: 1 each Documented by: Ondansetron HCl (Zofran) 4 mg IV Q6H PRN PRN Reason: Nausea/Vomiting Last Admin: 08/07/20 04:06 Dose: 4 mg Documented by: Calcitonin ([place]) Nasal [place] Patient's Own Med 0 each SARAH DAILY [facility] Last Admin: 08/10/20 08:46 Dose: 1 each Documented by: Cyclosporine [ Restasis Ophth Drops ] Patient's Own Med 0 each EYEBOTH BID [facility] Last Admin: 08/10/20 08:49 Dose: 1 each Documented by: Polysaccharide Iron Complex (Ferrex 150) 150 mg PO DAILY [facility] Last Admin: 08/10/20 08:43 Dose: 150 mg Documented by: Prednisolone Acetate (Pred Forte 1% Ophth Susp) 0 ml EYEBOTH BID [facility] Last Admin: 08/10/20 08:43 Dose: 1 drop Documented by: Scopolamine (Transderm-Scop) 1.5 mg TRDERM Q72H [facility] Last Admin: 08/07/20 16:10 Dose: 1.5 mg Documented by: Sodium Bicarbonate (Sodium Bicarbonate) 650 mg PO BID [facility] Last Admin: 08/10/20 08:42 Dose: 650 mg Documented by: Sodium Chloride (Saline Flush) 10 ml FLUSH ASDIRECTED PRN PRN Reason: Keep Vein Open Last Admin: 08/06/20 11:19 Dose: 10 ml Documented by: Valacyclovir HCl (Valtrex) 1,000 mg PO DAILY [facility] Last Admin: 08/10/20 08:41 Dose: 1,000 mg Documented by: Discontinued Medications Acetaminophen/Codeine Phosphate (Tylenol With Codeine No.3 300mg/30mg) 1 tab PO Q8H PRN PRN Reason: Pain Amitriptyline HCl (Elavil) 25 mg PO BEDTIME [facility] Amitriptyline HCl (Elavil) 25 mg PO BEDTIME [facility] Last Admin: 08/06/20 20:36 Dose: 25 mg Documented by: Cholestyramine Resin (Cholestyramine Packet) 4 gm PO DAILY [facility] Ezetimibe (Zetia) 10 mg PO DAILY [facility] Last Admin: 08/07/20 08:47 Dose: 10 mg Documented by: Enoxaparin Sodium (Lovenox) 30 mg SUBCUT Q24H [facility] Last Admin: 08/08/20 09:41 Dose: Not Given Documented by: Famotidine (Pepcid) 20 mg PO DAILY [facility] Last Admin: 08/07/20 08:42 Dose: 20 mg Documented by: Ceftriaxone Sodium 2 gm/ (Sodium Chloride) 100 mls @ 200 mls/hr IV ONETIME ONE Stop: 08/06/20 11:42 Last Admin: 08/06/20 12:12 Dose: 200 mls/hr Documented by: Sodium Chloride (Normal Saline) 1,000 mls @ 1,000 mls/hr IV .BOLUS STA Stop: 08/06/20 12:10 Last Admin: 08/06/20 11:30 Dose: 1,000 mls/hr Documented by: Ceftriaxone Sodium 2 gm/ (Sodium Chloride) 100 mls @ 200 mls/hr IV Q24H [facility] Lactated Ringer's (Ringers, Lactated) 1,000 mls @ 50 mls/hr IV ASDIRECTED [facility] Stop: 08/07/20 09:59 Last Infusion: 08/07/20 10:12 Dose: 100 mls/hr Documented by: Ceftriaxone Sodium 1 gm/ (Sodium Chloride) 100 mls @ 200 mls/hr IV Q24H [facility] Last Admin: 08/07/20 11:59 Dose: 200 mls/hr Documented by: Magnesium Sulfate (Magnesium Sulfate In Water 2 Gm/50 Ml) 2 gm in 50 mls @ 25 mls/hr IV ONETIME ONE Stop: 08/07/20 09:59 Last Admin: 08/07/20 08:53 Dose: 25 mls/hr Documented by: Promethazine HCl 12.5 mg/ (Sodium Chloride) 50.5 mls @ 100 mls/hr IV ONETIME ONE Stop: 08/07/20 10:30 Last Admin: 08/07/20 11:02 Dose: 100 mls/hr Documented by: Lactated Ringer's (Ringers, Lactated) 1,000 mls @ 100 mls/hr IV ASDIRECTED [facility] Last Admin: 08/07/20 23:45 Dose: 100 mls/hr Documented by: Lactated Ringer's (Ringers, Lactated) 1,000 mls @ 50 mls/hr IV ASDIRECTED [facility] Sodium Chloride (Normal Saline) 250 mls @ 100 mls/hr IV ASDIRECTED [facility] Last Admin: 08/08/20 13:39 Dose: 100 mls/hr Documented by: Levothyroxine Sodium (Synthroid) 50 mcg PO MoTuWeThFrSa@0600 [facility] Last Admin: 08/07/20 06:36 Dose: 50 mcg Documented by: Levothyroxine Sodium (Synthroid) 100 mcg PO [place]@0600 [facility] Metoprolol Succinate (Toprol Xl) 25 mg PO DAILY [facility] Last Admin: 08/07/20 08:46 Dose: 25 mg Documented by: Ondansetron HCl (Zofran) 4 mg IVPUSH ONETIME ONE Stop: 08/06/20 11:12 Last Admin: 08/06/20 11:30 Dose: 4 mg Documented by: Olmesartan Medoxomil 20 Mg Patient's Own Med 0 each PO DAILY [facility] Last Admin: 08/07/20 08:44 Dose: 1 each Documented by: Prednisolone Acetate (Pred Forte 1% Ophth Susp) 0 ml EYELF 6XDAY [facility] Last Admin: 08/06/20 20:36 Dose: 1 drop Documented by: Sodium Bicarbonate (Sodium Bicarbonate) 650 mg PO BID [facility] Last Admin: 08/07/20 08:45 Dose: 650 mg Documented by: Valacyclovir HCl (Valtrex) 1,000 mg PO DAILY [facility] Last Admin: 08/07/20 08:47 Dose: 1,000 mg Documented by: - Exam Quality Assessment: DVT Prophylaxis. No: Supplemental Oxygen, Urine Catheter General: Alert, Oriented, Cooperative, No Acute Distress HEENT: Pupils Equal, Pupils Reactive, Mucous Membr. Moist/[place] Neck: Supple, Trachea Midline Lungs: Clear to Auscultation, Normal Respiratory Effort GI/Abdominal Exam: Normal Bowel Sounds, Soft, No Distention, Tender (Epigastric region ) (Female) Exam: Deferred Back Exam: Normal Inspection, Full Range of Motion Extremities: Normal Range of Motion, Non-Tender, No Pedal Edema, Other (Severe arthritic changes to bilateral hands ) Peripheral Pulses: 2+: Radial (L), Radial (R), Dorsalis Pedis (L), Dorsalis Pedis (R) Skin: Warm, Dry, Intact Neurological: No New Focal Deficit Psy/Mental Status: Alert, Normal Affect, Normal Mood Sepsis Event Note - Evaluation Sepsis Screening Result: No Definite Risk - Focused Exam Vital Signs: Vital Signs Temp Pulse Resp BP Pulse Ox 08/10/20 08:42 83 121/58 L 08/10/20 08:41 121/58 L 08/10/20 07:30 97.9 F 83 20 121/58 L 98 08/10/20 05:10 99.0 F 85 12 119/51 L 99 - Problem List & Annotations (1) UTI (urinary tract infection) SNOMED Code(s): 31783341 Code(s): N39.0 - URINARY TRACT INFECTION, SITE NOT SPECIFIED Status: Resolved Priority: High Current Visit: Yes Qualifiers: Urinary tract infection type: acute cystitis Hematuria presence: without hematuria Qualified Code(s): N30.00 - Acute cystitis without hematuria (2) Nausea SNOMED Code(s): 898659800 Code(s): R11.0 - NAUSEA Status: Acute Priority: High Current Visit: Yes (3) Dehydration SNOMED Code(s): 76846949 Code(s): E86.0 - DEHYDRATION Status: Resolved Priority: High Current Visit: Yes (4) HLD (hyperlipidemia) SNOMED Code(s): 03969294 Code(s): E78.5 - HYPERLIPIDEMIA, UNSPECIFIED Status: Chronic Priority: Low Current Visit: No Qualifiers: Hyperlipidemia type: unspecified Qualified Code(s): E78.5 - Hyperlipidemia, unspecified (5) HTN (hypertension) SNOMED Code(s): 93967749 Code(s): I10 - ESSENTIAL (PRIMARY) HYPERTENSION Status: Chronic Priority: Medium Current Visit: No Qualifiers: Hypertension type: unspecified Qualified Code(s): I10 - Essential (primary) hypertension (6) Fibromyalgia SNOMED Code(s): 550076171 Code(s): M79.7 - FIBROMYALGIA Status: Chronic Priority: Low Current Visit: No (7) Arthritis SNOMED Code(s): 7761602 Code(s): M19.90 - UNSPECIFIED OSTEOARTHRITIS, UNSPECIFIED SITE Status: Chronic Priority: Low Current Visit: No (8) Hypoalbuminemia SNOMED Code(s): 347684700 Code(s): E88.09 - OTH DISORDERS OF PLASMA-PROTEIN METABOLISM, NEC Status: Acute Priority: High Current Visit: Yes (9) Weakness SNOMED Code(s): 43760200 Code(s): R53.1 - WEAKNESS Status: Acute Priority: High Current Visit: Yes (10) [id number]-ptfnrdk kidney injury SNOMED Code(s): 045746023 Code(s): N17.9 - ACUTE KIDNEY FAILURE, UNSPECIFIED; N18.9 - CHRONIC KIDNEY DISEASE, UNSPECIFIED Status: Acute Priority: High Current Visit: Yes Qualifiers: Acute renal failure type: unspecified Chronic kidney disease stage: stage 4 (severe) Qualified Code(s): N17.9 - Acute kidney failure, unspecified; N18.4 - Chronic kidney disease, stage 4 (severe) (11) Hypomagnesemia SNOMED Code(s): 888176871 Code(s): E83.42 - HYPOMAGNESEMIA Status: Resolved Priority: High Current Visit: Yes (12) Anemia SNOMED Code(s): 166706643 Code(s): D64.9 - ANEMIA, UNSPECIFIED Status: Acute Priority: High Current Visit: Yes Qualifiers: Anemia type: unspecified type Qualified Code(s): D64.9 - Anemia, unspecified - Problem List Review Problem List Initiated/Reviewed/Updated: Yes - My Orders Last 24 Hours: My Active Orders 08/10/20 05:09 PROCALCITONIN [REF] Routine 08/10/20 07:59 UA W/MICROSCOPIC [URIN] Routine 08/10/20 16:00 Remove Patch 0 ea TRDERM Q72H 08/12/20 06:00 Levothyroxine [Synthroid] 100 mcg PO [place]@0600 - Assessment Assessment:: Assessment - day of admission 08/06/20 * 85yo female who presents to our ED via ambulance with urinary complaints, nausea and decreased appetite * Reportedly diagnosed with UTI at walk-in clinic on thursday08/03/20 and given cephalexin * Reports nausea and anorexia; also has chronic diarrhea * Denies any current urinary symptoms * Denies fever, cough, dyspnea * Labs in ED: * WBC 14.31 (likely worsened by dehydration) * Hgb 11.3 * Plt 415 * Neutrophils 10.90 * INR 1.02 * Sodium 139 * Potassium 4.1 * Carbon dioxide 18 * Anion gap 20.1 * BUN 51, Creatinin 1.8, GFR 27 * Glucose 132 * Calcium 10.2 * Bilirubin 0.4 * AST 49, ALT 108, Alk Phos 147 * Albumin 3.3 * Lipase 186 * Lactic acid 1.0 * Pro-BNP 1268 * UA Negative however trace protein noted * SARS-CoV-2 RNA negative * Given 1L fluid bolus, Zofran, and started on 2gm Rocephin in ED * Admitted observation status for further treatment of UTI and dehydration 08/07/20 * Remains nauseated * Reports epigastric pain, No BM (usually has chronic diarrhea), minimal urine output, Chills * Labs: * WBC 12.93 * Hemoglobin 8.0 * Platelets 306 * Neutrophils 8.74 * Sodium 139 * Potassium 3.7 * Carbon dioxide 19 * Anion gap 15.7 * BUN 52, Creatinine 1.5, GFR 33 * Magnesium 1.7 * AST 24, ALT 64, Alk Phos 90 * Protein 5.5 * Albumin 2.3 * Will add IV Phenergan for nausea * Increase IV fluids as patient continues to be dehydrated * Blood cultures pending. * Reviewed [facility] notes: Sommers Sensitive E. Coli, 30,000 CFUs. * Continue IV ABX pending blood cultures * Check troponin/CKMB due to abdominal pain, continued nausea * Upgraded to inpatient due to continuation of symptoms, minimal lab improvement, continued work-up of symptoms. 08/08/20 * Remains nauseated but improved * Will discontinue abx today as she has completed treatment * Blood cultures negative thus far * Labs: * WBC 10.47 * Hgb 6.9 * MCV 109.2 * Platelet 278 * Neutrophil 6.45 * Anion gap 13.7 * BUN 30; Creatinine 1.2; GFR 43 * Magnesium 2.1 * Albumin 2.0 * Blood smear shows 2+ macrocytosis, 1+ target cells, 1+ teardrop cells, platelets adequate with normal morphology * Will transfuse 1 unit PRBC * Discontinue IV fluids today * Re-check/monitor labs * Check reticulocyte count and monitor labs 08/09/20 * Continues to be nauseated but states that it is still better than yesterday * Antibiotics and IV fluids were discontinued yesterday. * Received 1 unit PRBCs yesterday * Labs today: * WBC 11.71 * Hemoglobin 8.8 * MCV 102.7 * Platelets 267 * Neutrophils 7.82 * BUN 31, creatinine 1.2, GFR 43 * Albumin 2.3 * % reticulocytes 2.13 * Continue current treatment plan * Hopeful for discharge tomorrow - 08/10/20 08/10/20 * Reports continued but improved abdominal pain * Has mild epigastric pain * Leukocytosis has increased today and hgb has dropped * Labs: * WBC 14.18 * Hgb 7.8 * MCV 104.2 * Plt 272 * Neutrophils 10.12 * Sodium 143 * Potassium 3.8 * Anion gap 15.8 * BUN 34, Creatinine 1.2, GFR 43 * Glucose 84 * Consulted Dr. Green, Surgeon communications strategist * Patient will remain inpatient due to concerns of leukocytosis and anemia. - Plan Plan:: Anemia, S/P 1 unit PRBCs * Re-check labs tomorrow * Patient on iron supplementation so occult stool is useless - patient reports melena * Dr. Green, general surgeon consulted * Requests CT abdomen and pelvis with IV/Oral contrast * Stop Pepcid and start daily PPI Leukocytosis * CXR today * Repeat UA today * Monitor labs * CT abdomen/pelvis as above * Procalcitonin pending Acute on chronic renal insufficiency, appears to be at baseline Nausea, improved Hypoalbuminemia Weakness * Antiemetics as ordered * Re-check AM labs * [facility] T[facility] Service Worker consult * Obtain old records * PT/OT for weakness * CM/SW HLD (hyperlipidemia) HTN (hypertension) Fibromyalgia Arthritis * No current concerns * Reconcile/review home medications Resolved: UTI (urinary tract infection) Dehydration Hypomagnesemia Code Status: Full code PCP: Dr. Bowman DVT Prophylaxis: Lovenox-> change to SCDs as patient has worsening anemia requiring transfusion Social: Patient lives in a house with her . They are talking about moving to and [place] in [place]. She normally gets around without assistance but has been utilizing a cane because she is so weak. Disposition: Patient admitted observation status for management of dehydration, nausea, and awaiting blood cultures. Upgraded to inpatient on 08/07/20 as patient remains weak, nauseated, complains of abdominal pain, and had minimal improvement on labs. Likely discharge on 08/10/20 pending continued stability.
[2020-08-10] MEDS: Pantoprazole 40 MG Tab.CR PO SCH (12:51)
[2020-08-10] MEDS: Magnesium Oxide 400 MG Tab PO SCH (13:17)
[2020-08-10] MEDS ORDERED: Iopamidol 612 MG/ML 100 ML Bottle IVPUSH ONE (13:38)
[2020-08-10] MEDS ORDERED: Sodium Chloride 0.9% 10 ML Syringe FLUSH SCH (13:45)
[2020-08-10] MEDS ORDERED: diphenhydrAMINE 50 MG/ML SDV IVPUSH ONE (13:50)
[2020-08-10] MEDS: Sodium Chloride 0.9% 10 ML Syringe FLUSH PRN (14:17)
--- NOTE | 2020-08-10 14:59 | PCM.CONS ---
H&P History of Present Illness - General Date of Service: 08/10/20 Admit Problem/Dx: Dehydration post UTI Source of Information: Patient, Provider History Limitations: Reports: No Limitations - History of Present Illness Initial Comments - Free Text/Narative: Mrs. Noland is an 85 yo woman with history of rheumatoid arthritis and colonic volvulus who is currently admitted to the hospitalist service for a urinary tract infection. She was seen in the walk-in clinic a week ago and urinalysis showed evidence of infection. She was admitted for fluid resuscitation and antibiotics. Although her urinary symptoms are improved, she has had a persistent leukocytosis since admission, with fluctuating Hgb level. Her Hgb was around 8 after fluid resuscitation, and it has stayed at about that level other than two days ago when it was 6.9 and she was transfused 1 u pRBC. She currently has symptoms of fatigue and nausea. She has episodes of vague diffuse abdominal pain, but not at the time of exam. She has not been vomiting. She had gone a while without a bowel movement prior to presentation and was taking miralax; she now has watery diarrhea, and she experiences some relief of her symptoms after passing a bowel movement. She describes her bowel movements as black, which is nothing new for her as she takes iron supplements. She is not anticoagulated and is not on immune modulator therapy for her rheumatoid arthritis. She currently only takes tylenol as needed for her RA symptoms. Most of her colon was resected years ago after what sounds like volvulus. Her last colonoscopy was about 12 years ago. She has never had problems with peptic ulcer disease. She has a small hiatal hernia noted on CT from a few years ago. She denies dysphagia. She reports 15 lbs unintentional weight loss in the past 2-3 months, and she feels like she has not been eating like she used to. She has no personal history of cancer. A CT scan of the abdomen and pelvis with contrast from today appears to show no significant pathology, although her gallbladder is difficult to see and appears to be shriveled up. Abdominal Pain Score (Numeric/FACES): 8 - Related Data Allergies/Adverse Reactions: Allergies Allergy/AdvReac Type Severity Reaction Status Date / Time crab Allergy Swelling Verified 08/06/20 10:54 Iodinated Contrast Media Allergy Itching Verified 08/06/20 10:54 [Iodinated Contrast Media - Oral and] pneumococcal vaccine Allergy Itching Verified 08/06/20 10:54 Home Medications: Home Meds Acetaminophen/Codeine [Tylenol with Codeine No.3 300MG/30MG] 1 tab PO Q8HR PRN 08/06/20 [History] Amitriptyline [Elavil] 25 mg PO BEDTIME 08/06/20 [History] Aspirin [Harry Chewable Aspirin] 81 mg PO DAILY 08/06/20 [History] Calcitonin ([place]arden) [Miacalcin Nasal [place]] 1 spray SARAH DAILY 08/06/20 [History] Cholecalciferol (Vitamin D3) [Vitamin D3] 1,000 unit PO DAILY 08/06/20 [History] Cholestyramine (With Sugar) [Questran Powder] 4 gm PO DAILY 08/06/20 [History] Dextran 70/Hypromellose [Artificial Tears] 1 - 2 drop EYEBOTH ASDIRECTED PRN 08/06/20 [History] Ezetimibe 10 mg PO DAILY 08/06/20 [History] Famotidine 20 mg PO DAILY 08/06/20 [History] Formula Liquid 1 dose PO ASDIRECTED 08/06/20 [History] Iron Polysaccharides-Vitamin C 1 cap PO DAILY 08/06/20 [History] Levothyroxine [Synthroid] 50 - 100 mcg PO ASDIRECTED 08/06/20 [History] Megestrol Acetate 10 ml PO DAILY 08/06/20 [History] Metoprolol Succinate [Toprol XL] 25 mg PO DAILY 08/06/20 [History] Multivitamin [Daily-Servando] 1 tab PO DAILY 08/06/20 [History] Olmesartan Medoxomil [Benicar] 20 mg PO DAILY 08/06/20 [History] Ondansetron [Zofran ODT] 4 mg PO Q6HR PRN 08/06/20 [History] Pravastatin [Pravachol] 10 mg PO BEDTIME 08/06/20 [History] Prednisolone Acetate/Pf [Prednisolone Acet 1% Eye Drop] 1 drop EYEBOTH ASDIREC MARISELA 08/06/20 [History] Sodium Bicarbonate 650 mg PO BID 08/06/20 [History] cephALEXin [Cephalexin] 500 mg PO BID 08/06/20 [History] cycloSPORINE [Restasis Multidose] 1 drop EYEBOTH BID 08/06/20 [History] hydroCHLOROthiazide [Hydrochlorothiazide] 25 mg PO DAILY 08/06/20 [History] valACYclovir [Valtrex] 2,000 mg PO DAILY 08/06/20 [History] Past Medical History HEENT History: Reports: Cataract Cardiovascular History: Reports: High Cholesterol, Hypertension Gastrointestinal History: Reports: Chronic Diarrhea, Other (See Below) Other Gastrointestinal History: removed part of colon d/t being twisted. 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: Reports: , Other (See Below) Other OB/BYN History: hysterectomy Musculoskeletal History: Reports: Arthritis, Fibromyalgia Endocrine/Metabolic History: Reports: Hypothyroidism, Other (See Below) Other Endocrine/Metabolic History: is on levothyroxine - Infectious Disease History Infectious Disease History: Reports: Chicken Pox, Measles, Shingles - Past Surgical History HEENT Surgical History: Reports: Cataract Surgery, Other (See Below) Other HEENT Surgeries/Procedures: 5 corneal transplants Cardiovascular Surgical History: Reports: None GI Surgical History: Reports: Appendectomy, Colon, Colonoscopy Female Surgical History: Reports: Hysterectomy Endocrine Surgical History: Reports: None Neurological Surgical History: Reports: C-Spine Musculoskeletal Surgical History: Reports: Other (See Below) Other Musculoskeletal Surgeries/Procedures:: neck fusion Social & Family History - Tobacco Use Tobacco Use Status *Q: Never Tobacco User Second Hand Smoke Exposure: No - Caffeine Use Caffeine Use: Reports: Coffee Caffeine Use Comment: pt reports "very little coffee." - Recreational Drug Use Recreational Drug Use: No H&P Review of Systems - Review of Systems: Review Of Systems: See Below General: Reports: Malaise, Weakness, Fatigue HEENT: Reports: No Symptoms Pulmonary: Reports: No Symptoms Cardiovascular: Reports: No Symptoms Gastrointestinal: Reports: Abdominal Pain, Black Stool, Diarrhea, Decreased Appetite, Flatus, Nausea Genitourinary: Reports: No Symptoms Musculoskeletal: Reports: Joint Pain Skin: Reports: No Symptoms Psychiatric: Reports: No Symptoms Neurological: Reports: No Symptoms Hematologic/Lymphatic: Reports: Anemia Immunologic: Reports: No Symptoms Exam - Exam Exam: See Below - Vital Signs Vital Signs: Last Vital Signs Temp 36.6 C 08/10/20 12:19 Pulse 102 H 08/10/20 12:19 Resp 20 08/10/20 12:19 BP 119/48 L 08/10/20 12:19 Pulse Ox 100 08/10/20 12:49 Weight: 43.636 kg - Exam General: Alert, Oriented, Cooperative HEENT: Conjunctiva Clear Neck: Supple Lungs: Normal Respiratory Effort Cardiovascular: Regular Rate, Regular Rhythm GI/Abdominal Exam: Soft, Non-Tender, No Mass Extremities: Other (marked digital deformity from RA) Skin: Dry, Other (decreased turgor, no edema) Psychiatric: Alert, Normal Affect, Normal Mood - Patient Data Lab Results Last 24 hrs: Laboratory Results - last 24 hr 08/10/20 08/10/20 Range/Units 05:09 05:09 WBC 14.18 H (3.98-10.04) K/mm3 RBC 2.36 L (3.98-5.22) M/mm3 Hgb 7.8 L (11.2-15.7) gm/dl Hct 24.6 L (34.1-44.9) % MCV 104.2 H (79.4-94.8) fl MCH 33.1 H (25.6-32.2) pg MCHC 31.7 L (32.2-35.5) g/dl RDW Std Deviation 65.1 H (36.4-46.3) fL Plt Count 272 (182-369) K/mm3 MPV 10.1 (9.4-12.3) fl Neut % (Auto) 71.4 H (34.0-71.1) % Lymph % (Auto) 17.7 L (19.3-51.7) % [place] % (Auto) 6.1 (4.7-12.5) % Eos % (Auto) 4.1 (0.7-5.8) Baso % (Auto) 0.1 (0.1-1.2) % Neut # (Auto) 10.12 H (1.56-6.13) K/mm3 Lymph # (Auto) 2.51 (1.18-3.74) K/mm3 [place] # (Auto) 0.87 H (0.24-0.36) K/mm3 Eos # (Auto) 0.58 H (0.04-0.36) K/mm3 Baso # (Auto) 0.02 (0.01-0.08) K/mm3 Manual Slide Review Abnormal smear Sodium 143 (136-145) mEq/L Potassium 3.8 (3.5-5.1) mEq/L Chloride 111 H (98-107) mEq/L Carbon Dioxide 20 L (21-32) mEq/L Anion Gap 15.8 H (5-15) BUN 34 H (7-18) mg/dL Creatinine 1.2 H (0.55-1.02) mg/dL Est Cr Clr Drug Dosing 23.18 mL/min Estimated GFR (MDRD) 43 (>60) mL/min BUN/Creatinine Ratio 28.3 H (14-18) Glucose 84 (83-115) mg/dL Calcium 8.5 (8.5-10.1) mg/dL Magnesium 1.8 (1.8-2.4) mg/dl Total Bilirubin 0.3 (0.2-1.0) mg/dL AST 20 (15-37) U/L ALT 41 (14-59) U/L Alkaline Phosphatase 61 (46-116) U/L Total Protein 4.9 L (6.4-8.2) g/dl Albumin 2.1 L (3.4-5.0) g/dl Globulin 2.8 gm/dL Albumin/Globulin Ratio 0.8 L (1-2) Result Diagrams: 08/10/20 05:09 08/10/20 05:09 [place] Results Last 24 hrs: Microbiology 08/06/20 12:00 Aerobic Blood Culture - Preliminary Blood - Venous NO GROWTH AFTER 4 DAYS Anaerobic Blood Culture - Final 08/06/20 12:05 Aerobic Blood Culture - Preliminary Blood - Venous - Lab Draw NO GROWTH AFTER 4 DAYS Anaerobic Blood Culture - Preliminary NO GROWTH AFTER 4 DAYS Sepsis Event Note - Evaluation Sepsis Screening Result: No Definite Risk - Focused Exam Vital Signs: Vital Signs Temp Pulse Resp BP Pulse Ox Pulse Ox 08/10/20 12:49 100 100 08/10/20 12:19 36.6 C 102 H 20 119/48 L 100 08/10/20 08:42 83 121/58 L 08/10/20 08:41 121/58 L 08/10/20 07:30 36.6 C 83 20 121/58 L 98 08/10/20 05:10 37.2 C 85 12 119/51 L 99 Consult PN Assessment/Plan Procedures: Procedures ASSAY OF TROPONIN QUANT (08/11/16) CHEST X-RAY 2VW FRONTAL&LATL (08/11/16) COMP SCREEN MAMMOGRAM ADD-ON (12/17/15) COMPLETE CBC W/AUTO DIFF WBC (06/19/19) COMPREHEN METABOLIC PANEL (06/19/19) CT ANGIOGRAPHY CHEST (08/11/16) CT LUMBAR SPINE W/O DYE (06/19/19) DXA BONE DENSITY AXIAL (10/09/16) ELECTROCARDIOGRAM TRACING (08/11/16) EMERGENCY DEPT VISIT (06/19/19) EMERGENCY DEPT VISIT (08/11/16) FIBRIN DEGRADATION QUANT (08/11/16) ROUTINE VENIPUNCTURE (06/19/19) THER/PROPH/DIAG INJ IV PUSH (06/19/19) TX/PRO/DX INJ NEW DRUG ADDON (08/11/16) ULTRASOUND BREAST COMPLETE (12/06/14) URINALYSIS AUTO W/SCOPE (06/19/19) Problem List Initiated/Reviewed/Updated: Yes Plan: Nausea, diarrhea, and intermittent abdominal pain with leukocytosis and anemia of unspecified etiology. Differential includes peptic ulcer disease, Obdulio ulcer associated with hiatal hernia, stress gastritis, cholecystitis, C difficile colitis, among other things. Occult malignancy is a concern given her recent significant unintentional weight loss. Given benign exam, no urgent procedure is indicated. I will review the final radiology report from the CT scan today. If Hgb drops, I discussed diagnostic EGD and colonoscopy with the patient. If there is continued concern for cholecystitis, A HIDA scan may be indicated, although the patient has no right upper quadrant tenderness currently. Her diarrhea may be due to taking laxatives, but given her abdominal discomfort and leukocytosis after recent antibiotic treatment, I recommend testing for C difficile colitis. Agree with continued PPI therapy and avoidance of NSAID medication. Will determine next steps based on next CBC. Requesting Provider: [email or web address] Date Consult Requested: 08/10/20 Reason for Consult: anemia Patient History Reviewed: Yes Admission H&P Reviewed: Yes Notified Requestor: Yes
--- NOTE | 2020-08-10 15:00 | CT ---
CT abdomen and pelvis Technique multiple axial sections were obtained from above the dome of the diaphragm inferiorly through the pubic symphysis. Intravenous and oral contrast was utilized. Delayed images were also obtained through the bladder. Reconstructed coronal and sagittal images were obtained. Comparison: No prior abdominal or pelvic CT study is available. Findings: Visualized lung bases show nothing acute. Liver contains no focal parenchymal abnormality. Spleen appears normal. Adrenal glands show no nodule. Kidneys show symmetric contrast enhancement without hydronephrosis or mass. Pancreas shows no abnormality. Gallbladder is questionably visualized and appears small. Aorta shows atherosclerotic change which continues into the iliac vessels. No aneurysm is appreciated. No retroperitoneal adenopathy is appreciated. No mesenteric abnormalities are seen. No pelvic mass or adenopathy is appreciated. Appendix is not visualized Delayed images show contrast within the ureters as well as contrast within the bladder. Bone window settings were reviewed which show scoliosis within the spine. Compression deformity is noted within T12 which shows evidence of prior vertebroplasty. Other degenerative change is noted. Impression: 1. Findings as noted above. 2. Nothing acute is appreciated. Diagnostic code #2
[2020-08-10] MEDS: Scopolamine 1.5 MG Transdermal Patch TRDERM SCH (17:35)
[2020-08-10] MEDS: Amitriptyline 25 MG Tab PO SCH (21:22)
[2020-08-10] MEDS: Vancomycin 125 MG Cap PO SCH (21:23)
[2020-08-11] MEDS: Cholestyramine/Sucrose Powder 4 GM Packet PO SCH ×2 (06:38→10:40)
[2020-08-11] MEDS: Levothyroxine 50 MCG Tab PO SCH (06:40)
--- NOTE | 2020-08-11 08:16 | PCM.SN.2 ---
- Free Text/Narrative Note: Positive test for C difficile colitis. Patient had bloody bowel movement last night. Vitals stable. Hgb 7.5 g/dL this morning, with fluctuating values up and down between 7 and 9 g/dL the past few days. No further transfusions required. Oral vancomycin has been started for treatment. S: some nausea this morning but no complaints otherwise O: AF-VSS labs reviewed, WBC down to 11. Awake and alert, no distress benign abdomen A: etiology of symptoms including abdominal pain, nausea, bloating, and melena are all attributable to C difficile colitis. She is now on appropriate antibiotics treatment. I expect resolution of symptoms, without need for any procedure at this time. P: Recommend regular diet now. Observe for 24 hours. Repeat CBC tomorrow AM. If Hgb is stable and leukocytosis is resolved, anticipate discharge to home tomorrow on oral vancomycin.
[2020-08-11] MEDS: Megestrol Susp 40 MG/ML 10 ML UD Cup PO SCH (09:33)
[2020-08-11] MEDS: Metoprolol Succinate 25 MG Tab.ER PO SCH (09:34)
[2020-08-11] MEDS: Vancomycin 125 MG Cap PO SCH ×4 (09:34→20:39)
[2020-08-11] MEDS: Losartan 50 MG Tab PO SCH (09:34)
[2020-08-11] MEDS: Ezetimibe 10 MG Tab PO SCH (09:34)
[2020-08-11] MEDS: Iron Polysaccharides Complex 150 MG Cap PO SCH (09:34)
[2020-08-11] MEDS: Magnesium Oxide 400 MG Tab PO SCH (09:35)
[2020-08-11] MEDS: valACYclovir 1,000 MG Tab PO SCH (09:35)
[2020-08-11] MEDS: Pantoprazole 40 MG Tab.CR PO SCH (09:35)
[2020-08-11] MEDS: Multivitamins,Therapeutic Tab PO SCH (09:35)
[2020-08-11] MEDS: Cholecalciferol (Vitamin D3) 25 MCG Tab PO SCH (09:35)
[2020-08-11] MEDS: Sodium Bicarbonate 650 MG Tab PO SCH ×2 (09:35→20:39)
[2020-08-11] MEDS: CALCITONIN NAS SCH (09:37)
[2020-08-11] MEDS: CYCLOSPORINE EYEBOTH SCH ×2 (09:38→20:38)
[2020-08-11] MEDS: PREDNISOLONE ACETATE 1% EYEBOTH SCH ×2 (09:40→20:38)
[2020-08-11] MEDS: GANCICLOVIR 0.15% EYELF SCH ×2 (09:41→20:38)
[2020-08-11] MEDS ORDERED: MVI, Adult with Vitamin K 10 ML in Dextrose 5%-Lactated Ringers 1,000 ML IV SCH ×2 (10:30)
--- NOTE | 2020-08-11 14:56 | PCM.PN ---
- General Info Date of Service: 08/11/20 Admission Dx/Problem (Free Text): Dehydration post UTI Subjective Update: Patient had a cup of black liquid stool yesterday afternoon. This morning she had bowel movements x 2. The stool did not look dark yellow. She also complains of mild nausea. Denies vomiting and abdominal pain. Discussed that with the general surgeon Dr. Sheppard who does not feel patient needs procedure at this moment and suggested medical treatment for her C. difficile colitis. WBC 11.66 Hemoglobin 7.5 Creatinine 1.3 Blood glucose 86 - Review of Systems Systems Review Comment:: Positive for nausea and black stool. All other systems were reviewed and are negative. - Patient Data Vitals - Most Recent: Last Vital Signs Temp 36.6 C 08/11/20 04:37 Pulse 105 H 08/11/20 09:34 Resp 13 08/11/20 04:37 BP 117/54 L 08/11/20 09:34 Pulse Ox 97 08/11/20 04:37 Weight - Most Recent: 43.953 kg I&O - Last 24 Hours: Intake & Output 08/10/20 08/11/20 08/11/20 22:59 06:59 14:59 Intake Total 830 300 Output Total 750 500 Balance 80 -200 Lab Results Last 24 Hours: Laboratory Results - last 24 hr 08/10/20 08/10/20 08/10/20 Range/Units 05:09 17:45 22:05 WBC (3.98-10.04) K/mm3 RBC (3.98-5.22) M/mm3 Hgb 8.9 L (11.2-15.7) gm/dl Hct 27.2 L (34.1-44.9) % MCV (79.4-94.8) fl MCH (25.6-32.2) pg MCHC (32.2-35.5) g/dl RDW Std Deviation (36.4-46.3) fL Plt Count (182-369) K/mm3 MPV (9.4-12.3) fl Neut % (Auto) (34.0-71.1) % Lymph % (Auto) (19.3-51.7) % Payne % (Auto) (4.7-12.5) % Eos % (Auto) (0.7-5.8) Baso % (Auto) (0.1-1.2) % Neut # (Auto) (1.56-6.13) K/mm3 Lymph # (Auto) (1.18-3.74) K/mm3 Payne # (Auto) (0.24-0.36) K/mm3 Eos # (Auto) (0.04-0.36) K/mm3 Baso # (Auto) (0.01-0.08) K/mm3 Manual Slide Review Sodium (136-145) mEq/L Potassium (3.5-5.1) mEq/L Chloride (98-107) mEq/L Carbon Dioxide (21-32) mEq/L Anion Gap (5-15) BUN (7-18) mg/dL Creatinine (0.55-1.02) mg/dL Est Cr Clr Drug Dosing mL/min Estimated GFR (MDRD) (>60) mL/min BUN/Creatinine Ratio (14-18) Glucose (83-115) mg/dL Calcium (8.5-10.1) mg/dL Magnesium (1.8-2.4) mg/dl Total Bilirubin (0.2-1.0) mg/dL AST (15-37) U/L ALT (14-59) U/L Alkaline Phosphatase (46-116) U/L C-Reactive Protein (<1.0) mg/dL Total Protein (6.4-8.2) g/dl Albumin (3.4-5.0) g/dl Globulin gm/dL Albumin/Globulin Ratio (1-2) Procalcitonin 0.19 H ng/mL C.difficile [id number] Presumptive negative C. difficile Tox (PCR) Positive H 08/11/20 08/11/20 Range/Units 04:51 04:51 WBC 11.66 H (3.98-10.04) K/mm3 RBC 2.25 L (3.98-5.22) M/mm3 Hgb 7.5 L (11.2-15.7) gm/dl Hct 23.5 L (34.1-44.9) % MCV 104.4 H (79.4-94.8) fl MCH 33.3 H (25.6-32.2) pg MCHC 31.9 L (32.2-35.5) g/dl RDW Std Deviation 64.7 H (36.4-46.3) fL Plt Count 278 (182-369) K/mm3 MPV 9.6 (9.4-12.3) fl Neut % (Auto) 62.0 (34.0-71.1) % Lymph % (Auto) 21.4 (19.3-51.7) % Payne % (Auto) 8.4 (4.7-12.5) % Eos % (Auto) 7.0 H (0.7-5.8) Baso % (Auto) 0.3 (0.1-1.2) % Neut # (Auto) 7.24 H (1.56-6.13) K/mm3 Lymph # (Auto) 2.49 (1.18-3.74) K/mm3 Payne # (Auto) 0.98 H (0.24-0.36) K/mm3 Eos # (Auto) 0.82 H (0.04-0.36) K/mm3 Baso # (Auto) 0.03 (0.01-0.08) K/mm3 Manual Slide Review Abnormal smear Sodium 143 (136-145) mEq/L Potassium 4.2 (3.5-5.1) mEq/L Chloride 113 H (98-107) mEq/L Carbon Dioxide 20 L (21-32) mEq/L Anion Gap 14.2 (5-15) BUN 30 H (7-18) mg/dL Creatinine 1.3 H (0.55-1.02) mg/dL Est Cr Clr Drug Dosing 21.55 mL/min Estimated GFR (MDRD) 39 (>60) mL/min BUN/Creatinine Ratio 23.1 H (14-18) Glucose 86 (83-115) mg/dL Calcium 8.7 (8.5-10.1) mg/dL Magnesium 1.9 (1.8-2.4) mg/dl Total Bilirubin 0.3 (0.2-1.0) mg/dL AST 16 (15-37) U/L ALT 36 (14-59) U/L Alkaline Phosphatase 58 (46-116) U/L C-Reactive Protein 0.4 (<1.0) mg/dL Total Protein 4.9 L (6.4-8.2) g/dl Albumin 2.1 L (3.4-5.0) g/dl Globulin 2.8 gm/dL Albumin/Globulin Ratio 0.8 L (1-2) Procalcitonin ng/mL C.difficile [id number] C. difficile Tox (PCR) [place] Results Last 24 Hours: Microbiology 08/06/20 12:00 Aerobic Blood Culture - Preliminary Blood - Venous NO GROWTH AFTER 5 DAYS Anaerobic Blood Culture - Final 08/06/20 12:05 Aerobic Blood Culture - Preliminary Blood - Venous - Lab Draw NO GROWTH AFTER 5 DAYS Anaerobic Blood Culture - Preliminary NO GROWTH AFTER 5 DAYS 08/10/20 17:45 Clostridioides difficile Toxin Assay - Final Stool / Feces Med Orders - Current: Current Medications Acetaminophen (Tylenol) 650 mg PO Q4H PRN PRN Reason: Pain (Mild 1-3)/fever Acetaminophen/Codeine Phosphate (Tylenol With Codeine No.3 300mg/30mg) 1 tab PO Q8H PRN PRN Reason: Pain Amitriptyline HCl (Elavil) 25 mg PO BEDTIME [facility] Last Admin: 08/10/20 21:22 Dose: 25 mg Documented by: Artificial Tears (Refresh Liquigel 1%) 1 - 2 ml EYEBOTH ASDIRECTED PRN PRN Reason: Dry Eyes Cholecalciferol (Vitamin D3) 25 mcg PO DAILY [facility] Last Admin: 08/11/20 09:35 Dose: 25 mcg Documented by: Cholestyramine Resin (Cholestyramine Packet) 4 gm PO DAILY@0700 [facility] Last Admin: 08/11/20 10:40 Dose: 4 gm Documented by: Ezetimibe (Zetia) 10 mg PO DAILY [facility] Last Admin: 08/11/20 09:34 Dose: 10 mg Documented by: Multivitamins/Minerals 10 ml/ (Dextrose/Lactated Ringer's) 1,010 mls @ 50 mls/hr IV ASDIRECTED [facility] Last Admin: 08/11/20 10:40 Dose: 50 mls/hr Documented by: Levothyroxine Sodium (Synthroid) 50 mcg PO MoTuWeThFrSa@0600 [facility] Last Admin: 08/11/20 06:40 Dose: 50 mcg Documented by: Levothyroxine Sodium (Synthroid) 100 mcg PO Naranjo@0600 [facility] Loperamide HCl (Imodium) 2 mg PO Q12HR PRN PRN Reason: Diarrhea Last Admin: 08/10/20 09:03 Dose: 2 mg Documented by: Losartan Potassium (Cozaar) 50 mg PO DAILY [facility] Last Admin: 08/11/20 09:34 Dose: 50 mg Documented by: Magnesium Oxide (Magnesium Oxide) 400 mg PO DAILY [facility] Last Admin: 08/11/20 09:35 Dose: 400 mg Documented by: Megestrol Acetate (Megace 40 Mg/Ml Susp) 400 mg PO DAILY [facility] Last Admin: 08/11/20 09:33 Dose: 400 mg Documented by: Metoprolol Succinate (Toprol Xl) 25 mg PO DAILY [facility] Last Admin: 08/11/20 09:34 Dose: 25 mg Documented by: Miscellaneous Information (Remove Patch) 0 ea TRDERM Q72H [facility] Last Admin: 08/10/20 17:36 Dose: Not Given Documented by: Multivitamins (Thera) 1 each PO DAILY [facility] Last Admin: 08/11/20 09:35 Dose: 1 each Documented by: Ganciclovir Ophth (Gel 0.15% Ptom) 0 each EYELF BID [facility] Last Admin: 08/11/20 09:41 Dose: 1 each Documented by: Ondansetron HCl (Zofran) 4 mg IV Q6H PRN PRN Reason: Nausea/Vomiting Last Admin: 08/07/20 04:06 Dose: 4 mg Documented by: Pantoprazole Sodium (Protonix) 40 mg PO DAILY [facility] Last Admin: 08/11/20 09:35 Dose: 40 mg Documented by: Calcitonin ([place]) Nasal [place] Patient's Own Med 0 each SARAH DAILY [facility] Last Admin: 08/11/20 09:37 Dose: 1 each Documented by: Cyclosporine [ Restasis Ophth Drops ] Patient's Own Med 0 each EYEBOTH BID [facility] Last Admin: 08/11/20 09:38 Dose: 1 each Documented by: Polysaccharide Iron Complex (Ferrex 150) 150 mg PO DAILY [facility] Last Admin: 08/11/20 09:34 Dose: 150 mg Documented by: Prednisolone Acetate (Pred Forte 1% Ophth Susp) 0 ml EYEBOTH BID [facility] Last Admin: 08/11/20 09:40 Dose: 1 drop Documented by: Scopolamine (Transderm-Scop) 1.5 mg TRDERM Q72H [facility] Last Admin: 08/10/20 17:35 Dose: 1.5 mg Documented by: Sodium Bicarbonate (Sodium Bicarbonate) 650 mg PO BID [facility] Last Admin: 08/11/20 09:35 Dose: 650 mg Documented by: Sodium Chloride (Saline Flush) 10 ml FLUSH ASDIRECTED PRN PRN Reason: Keep Vein Open Last Admin: 08/10/20 14:17 Dose: 10 ml Documented by: Valacyclovir HCl (Valtrex) 1,000 mg PO DAILY [facility] Last Admin: 08/11/20 09:35 Dose: 1,000 mg Documented by: Vancomycin HCl (Vancocin 125 Mg Capsule) 125 mg PO QID [facility] Last Admin: 08/11/20 14:32 Dose: 125 mg Documented by: Discontinued Medications Acetaminophen/Codeine Phosphate (Tylenol With Codeine No.3 300mg/30mg) 1 tab PO Q8H PRN PRN Reason: Pain Amitriptyline HCl (Elavil) 25 mg PO BEDTIME [facility] Amitriptyline HCl (Elavil) 25 mg PO BEDTIME [facility] Last Admin: 08/06/20 20:36 Dose: 25 mg Documented by: Aspirin (Aspirin) 81 mg PO DAILY [facility] Last Admin: 08/10/20 08:42 Dose: 81 mg Documented by: Cholestyramine Resin (Cholestyramine Packet) 4 gm PO DAILY [facility] Diphenhydramine HCl (Benadryl) 12.5 mg IVPUSH ONETIME ONE Stop: 08/10/20 13:51 Last Admin: 08/10/20 13:58 Dose: 12.5 mg Documented by: Ezetimibe (Zetia) 10 mg PO DAILY [facility] Last Admin: 08/07/20 08:47 Dose: 10 mg Documented by: Enoxaparin Sodium (Lovenox) 30 mg SUBCUT Q24H [facility] Last Admin: 08/08/20 09:41 Dose: Not Given Documented by: Famotidine (Pepcid) 20 mg PO DAILY [facility] Last Admin: 08/07/20 08:42 Dose: 20 mg Documented by: Famotidine (Pepcid) 20 mg PO DAILY [facility] Last Admin: 08/10/20 08:42 Dose: 20 mg Documented by: Ceftriaxone Sodium 2 gm/ (Sodium Chloride) 100 mls @ 200 mls/hr IV ONETIME ONE Stop: 08/06/20 11:42 Last Admin: 08/06/20 12:12 Dose: 200 mls/hr Documented by: Sodium Chloride (Normal Saline) 1,000 mls @ 1,000 mls/hr IV .BOLUS STA Stop: 08/06/20 12:10 Last Admin: 08/06/20 11:30 Dose: 1,000 mls/hr Documented by: Ceftriaxone Sodium 2 gm/ (Sodium Chloride) 100 mls @ 200 mls/hr IV Q24H STEVE Lactated Ringer's (Ringers, Lactated) 1,000 mls @ 50 mls/hr IV ASDIRECTED STEVE Stop: 08/07/20 09:59 Last Infusion: 08/07/20 10:12 Dose: 100 mls/hr Documented by: Ceftriaxone Sodium 1 gm/ (Sodium Chloride) 100 mls @ 200 mls/hr IV Q24H [facility] Last Admin: 08/07/20 11:59 Dose: 200 mls/hr Documented by: Magnesium Sulfate (Magnesium Sulfate In Water 2 Gm/50 Ml) 2 gm in 50 mls @ 25 mls/hr IV ONETIME ONE Stop: 08/07/20 09:59 Last Admin: 08/07/20 08:53 Dose: 25 mls/hr Documented by: Promethazine HCl 12.5 mg/ (Sodium Chloride) 50.5 mls @ 100 mls/hr IV ONETIME ONE Stop: 08/07/20 10:30 Last Admin: 08/07/20 11:02 Dose: 100 mls/hr Documented by: Lactated Ringer's (Ringers, Lactated) 1,000 mls @ 100 mls/hr IV ASDIRECTED [facility] Last Admin: 08/07/20 23:45 Dose: 100 mls/hr Documented by: Lactated Ringer's (Ringers, Lactated) 1,000 mls @ 50 mls/hr IV ASDIRECTED STEVE Sodium Chloride (Normal Saline) 250 mls @ 100 mls/hr IV ASDIRECTED [facility] Last Admin: 08/08/20 13:39 Dose: 100 mls/hr Documented by: Iopamidol (Isovue-300 (61%)) 100 ml IVPUSH ONETIME ONE Stop: 08/10/20 13:39 Last Admin: 08/10/20 14:17 Dose: 100 ml Documented by: Levothyroxine Sodium (Synthroid) 50 mcg PO MoTuWeThFrSa@0600 [facility] Last Admin: 08/07/20 06:36 Dose: 50 mcg Documented by: Levothyroxine Sodium (Synthroid) 100 mcg PO Naranjo@0600 [facility] Metoprolol Succinate (Toprol Xl) 25 mg PO DAILY [facility] Last Admin: 08/07/20 08:46 Dose: 25 mg Documented by: Ondansetron HCl (Zofran) 4 mg IVPUSH ONETIME ONE Stop: 08/06/20 11:12 Last Admin: 08/06/20 11:30 Dose: 4 mg Documented by: Olmesartan Medoxomil 20 Mg Patient's Own Med 0 each PO DAILY [facility] Last Admin: 08/07/20 08:44 Dose: 1 each Documented by: Prednisolone Acetate (Pred Forte 1% Ophth Susp) 0 ml EYELF 6XDAY [facility] Last Admin: 08/06/20 20:36 Dose: 1 drop Documented by: Sodium Bicarbonate (Sodium Bicarbonate) 650 mg PO BID [facility] Last Admin: 08/07/20 08:45 Dose: 650 mg Documented by: Sodium Chloride (Saline Flush) 10 ml FLUSH ASDIRECTED [facility] Stop: 08/10/20 18:00 Valacyclovir HCl (Valtrex) 1,000 mg PO DAILY [facility] Last Admin: 08/07/20 08:47 Dose: 1,000 mg Documented by: - Exam Physical Findings Comments:: General: Cooperative, No Acute Distress, thin HEENT: Pupils Equal, Pupils Reactive, Mucous Membr. Moist/Klein Neck: Supple, Trachea Midline Lungs: Clear to Auscultation, Normal Respiratory Effort GI/Abdominal Exam: Normal Bowel Sounds, Soft, No Distention, no tenderness (Female) Exam: Deferred Back Exam: Normal Inspection, Full Range of Motion Extremities: Normal Range of Motion, Non-Tender, No Pedal Edema, Other (Severe arthritic changes to bilateral hands ) Peripheral Pulses: 2+: Radial (L), Radial (R), Dorsalis Pedis (L), Dorsalis Pedis (R) Skin: Warm, Dry, Intact Neurological: Alert and oriented, no focal neurological deficits Psy/Mental Status: Alert, Normal Affect, Normal Mood Sepsis Event Note - Evaluation Sepsis Screening Result: No Definite Risk - Focused Exam Vital Signs: Vital Signs Temp Pulse Resp BP BP Pulse Ox 08/11/20 09:34 105 H 117/54 L 08/11/20 04:37 36.6 C 89 13 115/62 97 - Problem List Review Problem List Initiated/Reviewed/Updated: Yes - My Orders Last 24 Hours: My Active Orders 08/10/20 20:11 Isolation [COMM] Routine 08/10/20 21:00 Vancomycin [Vancocin 125 MG Capsule] 125 mg PO QID 08/11/20 10:30 MVI, Adult with Vitamin K [Infuvite Adult] 10 ml Dextrose 5%-Lactated Ringers 1,000 ml IV ASDIRECTED 08/12/20 05:00 CBC WITH AUTO DIFF [HEME] DAILY CMP [COMPREHENSIVE METABOLIC PN,CMP] [CHEM] DAILY 08/13/20 05:00 CBC WITH AUTO DIFF [HEME] DAILY CMP [COMPREHENSIVE METABOLIC PN,CMP] [CHEM] DAILY 08/14/20 05:00 CBC WITH AUTO DIFF [HEME] DAILY CMP [COMPREHENSIVE METABOLIC PN,CMP] [CHEM] DAILY - Assessment Assessment:: Assessment - day of admission 08/06/20 * 85yo female who presents to our ED via ambulance with urinary complaints, nausea and decreased appetite * Reportedly diagnosed with UTI at walk-in clinic on thursday08/03/20 and given cephalexin * Reports nausea and anorexia; also has chronic diarrhea * Denies any current urinary symptoms * Denies fever, cough, dyspnea * Labs in ED: * WBC 14.31 (likely worsened by dehydration) * Hgb 11.3 * Plt 415 * Neutrophils 10.90 * INR 1.02 * Sodium 139 * Potassium 4.1 * Carbon dioxide 18 * Anion gap 20.1 * BUN 51, Creatinin 1.8, GFR 27 * Glucose 132 * Calcium 10.2 * Bilirubin 0.4 * AST 49, ALT 108, Alk Phos 147 * Albumin 3.3 * Lipase 186 * Lactic acid 1.0 * Pro-BNP 1268 * UA Negative however trace protein noted * SARS-CoV-2 RNA negative * Given 1L fluid bolus, Zofran, and started on 2gm Rocephin in ED * Admitted observation status for further treatment of UTI and dehydration 08/07/20 * Remains nauseated * Reports epigastric pain, No BM (usually has chronic diarrhea), minimal urine output, Chills * Labs: * WBC 12.93 * Hemoglobin 8.0 * Platelets 306 * Neutrophils 8.74 * Sodium 139 * Potassium 3.7 * Carbon dioxide 19 * Anion gap 15.7 * BUN 52, Creatinine 1.5, GFR 33 * Magnesium 1.7 * AST 24, ALT 64, Alk Phos 90 * Protein 5.5 * Albumin 2.3 * Will add IV Phenergan for nausea * Increase IV fluids as patient continues to be dehydrated * Blood cultures pending. * Reviewed [facility] notes: Sommers Sensitive E. Coli, 30,000 CFUs. * Continue IV ABX pending blood cultures * Check troponin/CKMB due to abdominal pain, continued nausea * Upgraded to inpatient due to continuation of symptoms, minimal lab improvement, continued work-up of symptoms. 08/08/20 * Remains nauseated but improved * Will discontinue abx today as she has completed treatment * Blood cultures negative thus far * Labs: * WBC 10.47 * Hgb 6.9 * MCV 109.2 * Platelet 278 * Neutrophil 6.45 * Anion gap 13.7 * BUN 30; Creatinine 1.2; GFR 43 * Magnesium 2.1 * Albumin 2.0 * Blood smear shows 2+ macrocytosis, 1+ target cells, 1+ teardrop cells, platelets adequate with normal morphology * Will transfuse 1 unit PRBC * Discontinue IV fluids today * Re-check/monitor labs * Check reticulocyte count and monitor labs 08/09/20 * Continues to be nauseated but states that it is still better than yesterday * Antibiotics and IV fluids were discontinued yesterday. * Received 1 unit PRBCs yesterday * Labs today: * WBC 11.71 * Hemoglobin 8.8 * MCV 102.7 * Platelets 267 * Neutrophils 7.82 * BUN 31, creatinine 1.2, GFR 43 * Albumin 2.3 * % reticulocytes 2.13 * Continue current treatment plan * Hopeful for discharge tomorrow - 08/10/20 08/10/20 * Reports continued but improved abdominal pain * Has mild epigastric pain * Leukocytosis has increased today and hgb has dropped * Labs: * WBC 14.18 * Hgb 7.8 * MCV 104.2 * Plt 272 * Neutrophils 10.12 * Sodium 143 * Potassium 3.8 * Anion gap 15.8 * BUN 34, Creatinine 1.2, GFR 43 * Glucose 84 * Consulted Dr. Green, Surgeon montessori lead teacher * Patient will remain inpatient due to concerns of leukocytosis and anemia. 08/11/20 * Positive for C. difficile colitis Continue vancomycin 125 mg p.o. every 6 hours Contact isolation Regular diet * GI bleeding hemoglobin 7.[address] Sheppard is on board. Greatly appreciate it. * WBC 11.66, * AWILDA or AWILDA on CKD Stage III Avoid nephrotoxic meds Repeat the renal function in the morning * Blood glucose around 80. D5 LR * Repeat CBC and CMP in the morning - Plan Plan:: Anemia, S/P 1 unit PRBCs * Re-check labs tomorrow * Patient on iron supplementation so occult stool is useless - patient reports melena * Dr. Green, general surgeon consulted * Requests CT abdomen and pelvis with IV/Oral contrast * Stop Pepcid and start daily PPI C difficile colitis Acute on chronic renal insufficiency, appears to be at baseline Nausea, improved Hypoalbuminemia Weakness * Antiemetics as ordered * Re-check AM labs * Double Needle Operator consult * Obtain old records * PT/OT for weakness * CM/SW HLD (hyperlipidemia) HTN (hypertension) Fibromyalgia Arthritis * No current concerns * Reconcile/review home medications Resolved: UTI (urinary tract infection) Dehydration Hypomagnesemia Code Status: Full code PCP: Dr. Bowman DVT Prophylaxis: Lovenox-> change to SCDs as patient has worsening anemia requiring transfusion Social: Patient lives in a house with her . They are talking about moving to and GROUP HOME in [place]. She normally gets around without assistance but has been utilizing a cane because she is so weak. Disposition: Patient admitted observation status for management of dehydration, nausea, and awaiting blood cultures. Upgraded to inpatient on 08/07/20 as patient remains weak, nauseated, complains of abdominal pain, and had minimal improvement on labs. Patient may need to stay in about 2 more days
[2020-08-11] MEDS ORDERED: Acetaminophen 325 MG Tab PO PRN (15:08)
[2020-08-11] MEDS: Amitriptyline 25 MG Tab PO SCH (20:39)
[2020-08-12] MEDS ORDERED: Levothyroxine 50 MCG Tab ** PATIENT'S OWN MED PO SCH (06:00)
[2020-08-12] MEDS ORDERED: Levothyroxine 100 MCG Tab PO SCH (06:00)
[2020-08-12] MEDS: Cholestyramine/Sucrose Powder 4 GM Packet PO SCH (06:21)
[2020-08-12] MEDS ORDERED: Sodium Chloride 0.9% 250 ML IV SCH (08:30)
[2020-08-12] MEDS: Megestrol Susp 40 MG/ML 10 ML UD Cup PO SCH (09:15)
[2020-08-12] MEDS: Cholecalciferol (Vitamin D3) 25 MCG Tab PO SCH (09:16)
[2020-08-12] MEDS: Ezetimibe 10 MG Tab PO SCH (09:16)
[2020-08-12] MEDS: valACYclovir 1,000 MG Tab PO SCH (09:16)
[2020-08-12] MEDS: Losartan 50 MG Tab PO SCH (09:16)
[2020-08-12] MEDS: Sodium Bicarbonate 650 MG Tab PO SCH ×2 (09:16→20:04)
[2020-08-12] MEDS: Multivitamins,Therapeutic Tab PO SCH (09:16)
[2020-08-12] MEDS: Magnesium Oxide 400 MG Tab PO SCH (09:17)
[2020-08-12] MEDS: Iron Polysaccharides Complex 150 MG Cap PO SCH (09:17)
[2020-08-12] MEDS: Pantoprazole 40 MG Tab.CR PO SCH (09:17)
[2020-08-12] MEDS: Vancomycin 125 MG Cap PO SCH ×4 (09:17→20:04)
[2020-08-12] MEDS: Metoprolol Succinate 25 MG Tab.ER PO SCH (09:17)
[2020-08-12] MEDS: CALCITONIN NAS SCH (09:21)
--- NOTE | 2020-08-12 09:22 | PCM.SN.2 ---
- Free Text/Narrative Note: GI bleed with C difficile colitis. S: feels about the same today as yesterday, feeling weak and tired. Occasional nausea. No pain. Stool is more solid. O: AF-VSS Hgb down to 6.1 from 75 g /dL 24 hours ago. WBC essentially the same at 12.0 from 11.6 Awake and alert, no distress Dry mucus membranes breathing comfortably on room air,breath sounds clear sinus tachycardia on auscultation without murmur Abd soft, no distention or tenderness. Stool sample looks soft, dark brown with some blood tinge to toilet water. Fingers with arthritic deformity No edema A: Hemorrhagic colitis related to C difficile infection, on oral vancomycin since evening of 08/10. P:-agree with transfusion 2 u pRBC for Hgb 6.1 this morning, related to acute blood loss from hemorrhagic colitis. -continue treatment for C difficile. Recommend at least another 24 hours of observation and recheck CBC tomorrow morning -no indication for endoscopy at this time as source of bleeding seems to be from C diff colitis and the patient has been relatively stable and is on appropriate treatment. Continue PPI. Okay for regular diet.
[2020-08-12] MEDS: CYCLOSPORINE EYEBOTH SCH ×2 (09:23→20:07)
[2020-08-12] MEDS: PREDNISOLONE ACETATE 1% EYEBOTH SCH ×2 (09:23→20:06)
[2020-08-12] MEDS: GANCICLOVIR 0.15% EYELF SCH ×2 (09:23→20:06)
--- NOTE | 2020-08-12 10:51 | PCM.PN ---
- General Info Date of Service: 08/12/20 Admission Dx/Problem (Free Text): Dehydration post UTI Subjective Update: Patient had small amount of black more solid stool last night and this morning. She has nausea at times. Denies abdominal pain. Vital signs are stable at acceptable Hemoglobin 6.1, which was at 7.5 yesterday WBC 10.[address] Green, who felt patient will not need scope at this time. Continue medical treatment and CBC in the morning. - Review of Systems Systems Review Comment:: General: Cooperative, No Acute Distress, thin, pale HEENT: Pupils Equal, Pupils Reactive, Mucous Membr. Moist/[place] Neck: Supple, Trachea Midline Lungs: Clear to Auscultation, Normal Respiratory Effort GI/Abdominal Exam: Normal Bowel Sounds, Soft, No Distention, no tenderness (Female) Exam: Deferred Back Exam: Normal Inspection, Full Range of Motion Extremities: Fingers deformity, Non-Tender, No Pedal Edema, Other (Severe arthritic changes to bilateral hands ) Peripheral Pulses: 2+: Radial (L), Radial (R), Dorsalis Pedis (L), Dorsalis Pedis (R) Skin: Warm, Dry, Intact Neurological: Alert and oriented, no focal neurological deficits Psy/Mental Status: Alert, Normal Affect, Normal Mood - Patient Data Vitals - Most Recent: Last Vital Signs Temp 36.7 C 08/12/20 09:12 Pulse 91 08/12/20 09:17 Resp 20 08/12/20 09:12 BP 144/51 H 08/12/20 09:17 Pulse Ox 100 08/12/20 09:12 Weight - Most Recent: 45.269 kg I&O - Last 24 Hours: Intake & Output 08/11/20 08/12/20 08/12/20 22:59 06:59 14:59 Intake Total 860 825 0 Output Total 250 Balance 610 825 0 Lab Results Last 24 Hours: Laboratory Results - last 24 hr 08/12/20 08/12/20 08/12/20 Range/Units 05:48 05:48 05:48 WBC 12.04 H (3.98-10.04) K/mm3 RBC 1.83 L (3.98-5.22) M/mm3 Hgb 6.1 L* (11.2-15.7) gm/dl Hct 19.5 L (34.1-44.9) % MCV 106.6 H (79.4-94.8) fl MCH 33.3 H (25.6-32.2) pg MCHC 31.3 L (32.2-35.5) g/dl RDW Std Deviation 65.2 H (36.4-46.3) fL Plt Count 255 (182-369) K/mm3 MPV 10.0 (9.4-12.3) fl Neut % (Auto) 66.2 (34.0-71.1) % Lymph % (Auto) 18.3 L (19.3-51.7) % [place] % (Auto) 8.5 (4.7-12.5) % Eos % (Auto) 6.1 H (0.7-5.8) Baso % (Auto) 0.2 (0.1-1.2) % Neut # (Auto) 7.97 H (1.56-6.13) K/mm3 Lymph # (Auto) 2.20 (1.18-3.74) K/mm3 [place] # (Auto) 1.02 H (0.24-0.36) K/mm3 Eos # (Auto) 0.74 H (0.04-0.36) K/mm3 Baso # (Auto) 0.03 (0.01-0.08) K/mm3 Manual Slide Review Abnormal smear Sodium 144 (136-145) mEq/L Potassium 4.0 (3.5-5.1) mEq/L Chloride 113 H (98-107) mEq/L Carbon Dioxide 22 (21-32) mEq/L Anion Gap 13.0 (5-15) BUN 33 H (7-18) mg/dL Creatinine 1.3 H (0.55-1.02) mg/dL Est Cr Clr Drug Dosing 22.20 mL/min Estimated GFR (MDRD) 39 (>60) mL/min BUN/Creatinine Ratio 25.4 H (14-18) Glucose 96 (83-115) mg/dL Calcium 8.2 L (8.5-10.1) mg/dL Magnesium 1.8 (1.8-2.4) mg/dl Total Bilirubin 0.2 (0.2-1.0) mg/dL AST 19 (15-37) U/L ALT 33 (14-59) U/L Alkaline Phosphatase 54 (46-116) U/L C-Reactive Protein 0.7 (<1.0) mg/dL Total Protein 4.6 L (6.4-8.2) g/dl Albumin 2.0 L (3.4-5.0) g/dl Globulin 2.6 gm/dL Albumin/Globulin Ratio 0.8 L (1-2) Blood Type Gel Antibody Screen Crossmatch 08/12/20 Range/Units 05:48 WBC (3.98-10.04) K/mm3 RBC (3.98-5.22) M/mm3 Hgb (11.2-15.7) gm/dl Hct (34.1-44.9) % MCV (79.4-94.8) fl MCH (25.6-32.2) pg MCHC (32.2-35.5) g/dl RDW Std Deviation (36.4-46.3) fL Plt Count (182-369) K/mm3 MPV (9.4-12.3) fl Neut % (Auto) (34.0-71.1) % Lymph % (Auto) (19.3-51.7) % [place] % (Auto) (4.7-12.5) % Eos % (Auto) (0.7-5.8) Baso % (Auto) (0.1-1.2) % Neut # (Auto) (1.56-6.13) K/mm3 Lymph # (Auto) (1.18-3.74) K/mm3 [place] # (Auto) (0.24-0.36) K/mm3 Eos # (Auto) (0.04-0.36) K/mm3 Baso # (Auto) (0.01-0.08) K/mm3 Manual Slide Review Sodium (136-145) mEq/L Potassium (3.5-5.1) mEq/L Chloride (98-107) mEq/L Carbon Dioxide (21-32) mEq/L Anion Gap (5-15) BUN (7-18) mg/dL Creatinine (0.55-1.02) mg/dL Est Cr Clr Drug Dosing mL/min Estimated GFR (MDRD) (>60) mL/min BUN/Creatinine Ratio (14-18) Glucose (83-115) mg/dL Calcium (8.5-10.1) mg/dL Magnesium (1.8-2.4) mg/dl Total Bilirubin (0.2-1.0) mg/dL AST (15-37) U/L ALT (14-59) U/L Alkaline Phosphatase (46-116) U/L C-Reactive Protein (<1.0) mg/dL Total Protein (6.4-8.2) g/dl Albumin (3.4-5.0) g/dl Globulin gm/dL Albumin/Globulin Ratio (1-2) Blood Type A POSITIVE Gel Antibody Screen Negative Crossmatch See Detail [place] Results Last 24 Hours: Microbiology 08/06/20 12:00 Aerobic Blood Culture - Preliminary Blood - Venous NO GROWTH AFTER 5 DAYS Anaerobic Blood Culture - Final 08/06/20 12:05 Aerobic Blood Culture - Preliminary Blood - Venous - Lab Draw NO GROWTH AFTER 5 DAYS Anaerobic Blood Culture - Preliminary NO GROWTH AFTER 5 DAYS 08/10/20 17:45 Clostridioides difficile Toxin Assay - Final Stool / Feces Med Orders - Current: Current Medications Acetaminophen (Tylenol) 650 mg PO Q6H PRN PRN Reason: Pain (Mild 1-3)/fever Acetaminophen/Codeine Phosphate (Tylenol With Codeine No.3 300mg/30mg) 1 tab PO Q8H PRN PRN Reason: Pain Amitriptyline HCl (Elavil) 25 mg PO BEDTIME [facility] Last Admin: 08/11/20 20:39 Dose: 25 mg Documented by: Artificial Tears (Refresh Liquigel 1%) 1 - 2 ml EYEBOTH ASDIRECTED PRN PRN Reason: Dry Eyes Cholecalciferol (Vitamin D3) 25 mcg PO DAILY [facility] Last Admin: 08/12/20 09:16 Dose: 25 mcg Documented by: Cholestyramine Resin (Cholestyramine Packet) 4 gm PO DAILY@0700 [facility] Last Admin: 08/12/20 06:21 Dose: 4 gm Documented by: Ezetimibe (Zetia) 10 mg PO DAILY [facility] Last Admin: 08/12/20 09:16 Dose: 10 mg Documented by: Sodium Chloride (Normal Saline) 250 mls @ 100 mls/hr IV ASDIRECTED [facility] Last Admin: 08/12/20 08:49 Dose: 100 mls/hr Documented by: Lactated Ringer's (Ringers, Lactated) 1,000 mls @ 50 mls/hr IV ASDIRECTED [facility] Levothyroxine Sodium (Synthroid) 50 mcg PO MoTuWeThFrSa@0600 [facility] Last Admin: 08/11/20 06:40 Dose: 50 mcg Documented by: Levothyroxine Sodium (Synthroid) 100 mcg PO Naranjo@0600 [facility] Last Admin: 08/12/20 06:21 Dose: 100 mcg Documented by: Loperamide HCl (Imodium) 2 mg PO Q12HR PRN PRN Reason: Diarrhea Last Admin: 08/10/20 09:03 Dose: 2 mg Documented by: Losartan Potassium (Cozaar) 50 mg PO DAILY [facility] Last Admin: 08/12/20 09:16 Dose: 50 mg Documented by: Magnesium Oxide (Magnesium Oxide) 400 mg PO DAILY [facility] Last Admin: 08/12/20 09:17 Dose: 400 mg Documented by: Megestrol Acetate (Megace 40 Mg/Ml Susp) 400 mg PO DAILY [facility] Last Admin: 08/12/20 09:15 Dose: 400 mg Documented by: Metoprolol Succinate (Toprol Xl) 25 mg PO DAILY [facility] Last Admin: 08/12/20 09:17 Dose: 25 mg Documented by: Miscellaneous Information (Remove Patch) 0 ea TRDERM Q72H [facility] Last Admin: 08/10/20 17:36 Dose: Not Given Documented by: Multivitamins (Thera) 1 each PO DAILY [facility] Last Admin: 08/12/20 09:16 Dose: 1 each Documented by: Ganciclovir Ophth (Gel 0.15% Ptom) 0 each EYELF BID [facility] Last Admin: 08/12/20 09:23 Dose: 1 each Documented by: Ondansetron HCl (Zofran) 4 mg IV Q6H PRN PRN Reason: Nausea/Vomiting Last Admin: 08/07/20 04:06 Dose: 4 mg Documented by: Pantoprazole Sodium (Protonix) 40 mg PO DAILY [facility] Last Admin: 08/12/20 09:17 Dose: 40 mg Documented by: Calcitonin ([place]) Nasal [place] Patient's Own Med 0 each SARAH DAILY [facility] Last Admin: 08/12/20 09:21 Dose: 1 each Documented by: Cyclosporine [ Restasis Ophth Drops ] Patient's Own Med 0 each EYEBOTH BID [facility] Last Admin: 08/12/20 09:23 Dose: 1 each Documented by: Polysaccharide Iron Complex (Ferrex 150) 150 mg PO DAILY [facility] Last Admin: 08/12/20 09:17 Dose: 150 mg Documented by: Prednisolone Acetate (Pred Forte 1% Ophth Susp) 0 ml EYEBOTH BID [facility] Last Admin: 08/12/20 09:23 Dose: 1 drop Documented by: Scopolamine (Transderm-Scop) 1.5 mg TRDERM Q72H [facility] Last Admin: 08/10/20 17:35 Dose: 1.5 mg Documented by: Sodium Bicarbonate (Sodium Bicarbonate) 650 mg PO BID [facility] Last Admin: 08/12/20 09:16 Dose: 650 mg Documented by: Sodium Chloride (Saline Flush) 10 ml FLUSH ASDIRECTED PRN PRN Reason: Keep Vein Open Last Admin: 08/10/20 14:17 Dose: 10 ml Documented by: Valacyclovir HCl (Valtrex) 1,000 mg PO DAILY [facility] Last Admin: 08/12/20 09:16 Dose: 1,000 mg Documented by: Vancomycin HCl (Vancocin 125 Mg Capsule) 125 mg PO QID [facility] Last Admin: 08/12/20 09:17 Dose: 125 mg Documented by: Discontinued Medications Acetaminophen (Tylenol) 650 mg PO Q4H PRN PRN Reason: Pain (Mild 1-3)/fever Acetaminophen/Codeine Phosphate (Tylenol With Codeine No.3 300mg/30mg) 1 tab PO Q8H PRN PRN Reason: Pain Amitriptyline HCl (Elavil) 25 mg PO BEDTIME [facility] Amitriptyline HCl (Elavil) 25 mg PO BEDTIME [facility] Last Admin: 08/06/20 20:36 Dose: 25 mg Documented by: Aspirin (Aspirin) 81 mg PO DAILY [facility] Last Admin: 08/10/20 08:42 Dose: 81 mg Documented by: Cholestyramine Resin (Cholestyramine Packet) 4 gm PO DAILY [facility] Diphenhydramine HCl (Benadryl) 12.5 mg IVPUSH ONETIME ONE Stop: 08/10/20 13:51 Last Admin: 08/10/20 13:58 Dose: 12.5 mg Documented by: Ezetimibe (Zetia) 10 mg PO DAILY [facility] Last Admin: 08/07/20 08:47 Dose: 10 mg Documented by: Enoxaparin Sodium (Lovenox) 30 mg SUBCUT Q24H [facility] Last Admin: 08/08/20 09:41 Dose: Not Given Documented by: Famotidine (Pepcid) 20 mg PO DAILY [facility] Last Admin: 08/07/20 08:42 Dose: 20 mg Documented by: Famotidine (Pepcid) 20 mg PO DAILY [facility] Last Admin: 08/10/20 08:42 Dose: 20 mg Documented by: Ceftriaxone Sodium 2 gm/ (Sodium Chloride) 100 mls @ 200 mls/hr IV ONETIME ONE Stop: 08/06/20 11:42 Last Admin: 08/06/20 12:12 Dose: 200 mls/hr Documented by: Sodium Chloride (Normal Saline) 1,000 mls @ 1,000 mls/hr IV .BOLUS STA Stop: 08/06/20 12:10 Last Admin: 08/06/20 11:30 Dose: 1,000 mls/hr Documented by: Ceftriaxone Sodium 2 gm/ (Sodium Chloride) 100 mls @ 200 mls/hr IV Q24H [facility] Lactated Ringer's (Ringers, Lactated) 1,000 mls @ 50 mls/hr IV ASDIRECTED [facility] Stop: 08/07/20 09:59 Last Infusion: 08/07/20 10:12 Dose: 100 mls/hr Documented by: Ceftriaxone Sodium 1 gm/ (Sodium Chloride) 100 mls @ 200 mls/hr IV Q24H [facility] Last Admin: 08/07/20 11:59 Dose: 200 mls/hr Documented by: Magnesium Sulfate (Magnesium Sulfate In Water 2 Gm/50 Ml) 2 gm in 50 mls @ 25 mls/hr IV ONETIME ONE Stop: 08/07/20 09:59 Last Admin: 08/07/20 08:53 Dose: 25 mls/hr Documented by: Promethazine HCl 12.5 mg/ (Sodium Chloride) 50.5 mls @ 100 mls/hr IV ONETIME ONE Stop: 08/07/20 10:30 Last Admin: 08/07/20 11:02 Dose: 100 mls/hr Documented by: Lactated Ringer's (Ringers, Lactated) 1,000 mls @ 100 mls/hr IV ASDIRECTED [facility] Last Admin: 08/07/20 23:45 Dose: 100 mls/hr Documented by: Lactated Ringer's (Ringers, Lactated) 1,000 mls @ 50 mls/hr IV ASDIRECTED [facility] Sodium Chloride (Normal Saline) 250 mls @ 100 mls/hr IV ASDIRECTED [facility] Last Admin: 08/08/20 13:39 Dose: 100 mls/hr Documented by: Multivitamins/Minerals 10 ml/ (Dextrose/Lactated Ringer's) 1,010 mls @ 50 mls/hr IV ASDIRECTED [facility] Last Admin: 08/11/20 10:40 Dose: 50 mls/hr Documented by: Iopamidol (Isovue-300 (61%)) 100 ml IVPUSH ONETIME ONE Stop: 08/10/20 13:39 Last Admin: 08/10/20 14:17 Dose: 100 ml Documented by: Levothyroxine Sodium (Synthroid) 50 mcg PO MoTuWeThFrSa@0600 [facility] Last Admin: 08/07/20 06:36 Dose: 50 mcg Documented by: Levothyroxine Sodium (Synthroid) 100 mcg PO Naranjo@0600 [facility] Metoprolol Succinate (Toprol Xl) 25 mg PO DAILY [facility] Last Admin: 08/07/20 08:46 Dose: 25 mg Documented by: Ondansetron HCl (Zofran) 4 mg IVPUSH ONETIME ONE Stop: 08/06/20 11:12 Last Admin: 08/06/20 11:30 Dose: 4 mg Documented by: Olmesartan Medoxomil 20 Mg Patient's Own Med 0 each PO DAILY [facility] Last Admin: 08/07/20 08:44 Dose: 1 each Documented by: Prednisolone Acetate (Pred Forte 1% Ophth Susp) 0 ml EYELF 6XDAY [facility] Last Admin: 08/06/20 20:36 Dose: 1 drop Documented by: Sodium Bicarbonate (Sodium Bicarbonate) 650 mg PO BID [facility] Last Admin: 08/07/20 08:45 Dose: 650 mg Documented by: Sodium Chloride (Saline Flush) 10 ml FLUSH ASDIRECTED [facility] Stop: 08/10/20 18:00 Valacyclovir HCl (Valtrex) 1,000 mg PO DAILY [facility] Last Admin: 08/07/20 08:47 Dose: 1,000 mg Documented by: Sepsis Event Note - Evaluation Sepsis Screening Result: No Definite Risk - Focused Exam Vital Signs: Vital Signs Temp Pulse Pulse Resp BP BP Pulse Ox 08/12/20 09:17 91 144/51 H 08/12/20 09:16 144/51 H 08/12/20 09:12 36.7 C 91 20 144/51 H 100 08/12/20 09:11 36.7 C 91 2 L 144/51 H 100 08/12/20 08:50 36.6 C 87 87 18 114/52 L 114/52 L 100 08/12/20 07:14 36.6 C 91 20 119/56 L 99 08/12/20 02:13 36.7 C 88 18 126/54 L 100 - Problem List Review Problem List Initiated/Reviewed/Updated: Yes - My Orders Last 24 Hours: My Active Orders 08/11/20 15:08 Acetaminophen [TylenoL] 650 mg PO Q6H PRN 08/12/20 05:48 RED BLOOD CELLS LP [BBK] Routine TYPE AND SCREEN [BBK] Routine 08/12/20 07:10 Blood Transfusion Reflex Orders [OM.PC] Routine Transfuse Red Blood Cells [COMM] Routine 08/12/20 08:30 Sodium Chloride 0.9% [Normal Saline] 250 ml IV ASDIRECTED 08/12/20 08:45 Lactated Ringers [Ringers, Lactated] 1,000 ml IV ASDIRECTED 08/12/20 Lunch Nothing per Oral Now Diet [DIET] 08/13/20 05:00 CBC WITH AUTO DIFF [HEME] DAILY CMP [COMPREHENSIVE METABOLIC PN,CMP] [CHEM] DAILY 08/14/20 05:00 CBC WITH AUTO DIFF [HEME] DAILY CMP [COMPREHENSIVE METABOLIC PN,CMP] [CHEM] DAILY - Assessment Assessment:: Assessment - day of admission 08/06/20 * 85yo female who presents to our ED via ambulance with urinary complaints, nausea and decreased appetite * Reportedly diagnosed with UTI at walk-in clinic on thursday08/03/20 and given cephalexin * Reports nausea and anorexia; also has chronic diarrhea * Denies any current urinary symptoms * Denies fever, cough, dyspnea * Labs in ED: * WBC 14.31 (likely worsened by dehydration) * Hgb 11.3 * Plt 415 * Neutrophils 10.90 * INR 1.02 * Sodium 139 * Potassium 4.1 * Carbon dioxide 18 * Anion gap 20.1 * BUN 51, Creatinin 1.8, GFR 27 * Glucose 132 * Calcium 10.2 * Bilirubin 0.4 * AST 49, ALT 108, Alk Phos 147 * Albumin 3.3 * Lipase 186 * Lactic acid 1.0 * Pro-BNP 1268 * UA Negative however trace protein noted * SARS-CoV-2 RNA negative * Given 1L fluid bolus, Zofran, and started on 2gm Rocephin in ED * Admitted observation status for further treatment of UTI and dehydration 08/07/20 * Remains nauseated * Reports epigastric pain, No BM (usually has chronic diarrhea), minimal urine output, Chills * Labs: * WBC 12.93 * Hemoglobin 8.0 * Platelets 306 * Neutrophils 8.74 * Sodium 139 * Potassium 3.7 * Carbon dioxide 19 * Anion gap 15.7 * BUN 52, Creatinine 1.5, GFR 33 * Magnesium 1.7 * AST 24, ALT 64, Alk Phos 90 * Protein 5.5 * Albumin 2.3 * Will add IV Phenergan for nausea * Increase IV fluids as patient continues to be dehydrated * Blood cultures pending. * Reviewed [place] [facility]-In notes: Sommers Sensitive E. Coli, 30,000 CFUs. * Continue IV ABX pending blood cultures * Check troponin/CKMB due to abdominal pain, continued nausea * Upgraded to inpatient due to continuation of symptoms, minimal lab improvement, continued work-up of symptoms. 08/08/20 * Remains nauseated but improved * Will discontinue abx today as she has completed treatment * Blood cultures negative thus far * Labs: * WBC 10.47 * Hgb 6.9 * MCV 109.2 * Platelet 278 * Neutrophil 6.45 * Anion gap 13.7 * BUN 30; Creatinine 1.2; GFR 43 * Magnesium 2.1 * Albumin 2.0 * Blood smear shows 2+ macrocytosis, 1+ target cells, 1+ teardrop cells, platelets adequate with normal morphology * Will transfuse 1 unit PRBC * Discontinue IV fluids today * Re-check/monitor labs * Check reticulocyte count and monitor labs 08/09/20 * Continues to be nauseated but states that it is still better than yesterday * Antibiotics and IV fluids were discontinued yesterday. * Received 1 unit PRBCs yesterday * Labs today: * WBC 11.71 * Hemoglobin 8.8 * MCV 102.7 * Platelets 267 * Neutrophils 7.82 * BUN 31, creatinine 1.2, GFR 43 * Albumin 2.3 * % reticulocytes 2.13 * Continue current treatment plan * Hopeful for discharge tomorrow - 08/10/20 08/10/20 * Reports continued but improved abdominal pain * Has mild epigastric pain * Leukocytosis has increased today and hgb has dropped * Labs: * WBC 14.18 * Hgb 7.8 * MCV 104.2 * Plt 272 * Neutrophils 10.12 * Sodium 143 * Potassium 3.8 * Anion gap 15.8 * BUN 34, Creatinine 1.2, GFR 43 * Glucose 84 * Consulted Dr. Green, Surgeon well service floorperson * Patient will remain inpatient due to concerns of leukocytosis and anemia. 08/11/20 * Positive for C. difficile colitis Continue vancomycin 125 mg p.o. every 6 hours Contact isolation Regular diet * GI bleeding hemoglobin 7.[address] Sheppard is on board. Greatly appreciate it. * WBC 11.66, * AWILDA or AWILDA on CKD Stage III Avoid nephrotoxic meds Repeat the renal function in the morning * Blood glucose around 80. D5 LR * Repeat CBC and CMP in the morning 08/12/20 * C. difficile colitis Continue vancomycin 125 mg p.o. every 6 hours Contact isolation Regular diet * GI bleeding hemoglobin 6.1 today. It was a 7.5 we are Thursday. 2 units of PRBC General surgeon Dr. Sheppard is on board. Greatly appreciate it. No need scope at this time. Continue medical treatment and CBC in the morning. * WBC 12.04 * AWILDA or AWILDA on CKD Stage III Avoid nephrotoxic meds Repeat the renal function in the morning * Blood glucose is borderline low - D5 LR * Repeat CBC and CMP in the morning - Plan Plan:: Anemia, S/P 1 unit PRBCs * Re-check labs tomorrow * Patient on iron supplementation so occult stool is useless - patient reports melena * Dr. Green is on board * CT abdomen and pelvis with IV/Oral contrast -no acute change * daily PPI C difficile colitis Acute on chronic renal insufficiency, appears to be at baseline Nausea, improved Hypoalbuminemia Weakness * Antiemetics as ordered * Re-check AM labs * [facility] consult * Obtain old records * PT/OT for weakness * CM/SW HLD (hyperlipidemia) HTN (hypertension) Fibromyalgia Arthritis * No current concerns * Reconcile/review home medications Resolved: UTI (urinary tract infection) Dehydration Hypomagnesemia Code Status: Full code PCP: Dr. Bowman DVT Prophylaxis: Lovenox-> change to SCDs as patient has worsening anemia requiring transfusion Social: Patient lives in a house with her . They are talking about moving to and [facility] in [place]. She normally gets around without assistance but has been utilizing a cane because she is so weak. Disposition: Patient admitted observation status for management of dehydration, nausea, and awaiting blood cultures. Upgraded to inpatient on 08/07/20 as patient remains weak, nauseated, complains of abdominal pain, and had minimal improvement on labs. Patient may need to stay in about 2 more days because she was newly diagnosed with C. difficile colitis and GI bleeding
[2020-08-12] MEDS: Lactated Ringers 1,000 ML IV SCH (16:26)
[2020-08-12] MEDS: Amitriptyline 25 MG Tab PO SCH (20:04)
[2020-08-13] MEDS: Levothyroxine 50 MCG Tab PO SCH (05:20)
[2020-08-13] MEDS: Cholestyramine/Sucrose Powder 4 GM Packet PO SCH (06:00)
[2020-08-13] MEDS: Sodium Bicarbonate 650 MG Tab PO SCH ×2 (08:02→21:25)
[2020-08-13] MEDS: Multivitamins,Therapeutic Tab PO SCH (08:03)
[2020-08-13] MEDS: Losartan 50 MG Tab PO SCH (08:03)
[2020-08-13] MEDS: Cholecalciferol (Vitamin D3) 25 MCG Tab PO SCH (08:03)
[2020-08-13] MEDS: Magnesium Oxide 400 MG Tab PO SCH (08:03)
[2020-08-13] MEDS: valACYclovir 1,000 MG Tab PO SCH (08:04)
[2020-08-13] MEDS: Vancomycin 125 MG Cap PO SCH ×4 (08:04→21:25)
[2020-08-13] MEDS: Pantoprazole 40 MG Tab.CR PO SCH (08:04)
[2020-08-13] MEDS: Megestrol Susp 40 MG/ML 10 ML UD Cup PO SCH (08:04)
[2020-08-13] MEDS: Iron Polysaccharides Complex 150 MG Cap PO SCH (08:04)
[2020-08-13] MEDS: Metoprolol Succinate 25 MG Tab.ER PO SCH (08:04)
[2020-08-13] MEDS: Ezetimibe 10 MG Tab PO SCH (08:04)
[2020-08-13] MEDS: PREDNISOLONE ACETATE 1% EYEBOTH SCH ×2 (08:09→21:26)
[2020-08-13] MEDS: CALCITONIN NAS SCH (08:09)
[2020-08-13] MEDS: GANCICLOVIR 0.15% EYELF SCH ×2 (08:11→21:25)
[2020-08-13] MEDS: CYCLOSPORINE EYEBOTH SCH ×2 (08:11→21:26)
--- NOTE | 2020-08-13 08:38 | PCM.PN ---
- General Info Date of Service: 08/13/20 Admission Dx/Problem (Free Text): Dehydration post UTI Subjective Update: In to see Satya. He reports she still feels weak and feels about the same as she did the last couple of days. She reports she had a bowel movement today. She has been eating ok. WBC is improved to 11.74. Hemoglobin 9.6 status post 2 units. Platelets are 238,000. Neutrophils are slightly elevated 7.37. Sodium is 146. Potassium 4.4. Carbon dioxide is 20. Anion gap is 18.4. BUN 27. Creatinine 1.1. GFR 47. Calcium 8.4. Albumin 2.0. She continues to receive p.o. vancomycin and her PPI. Likely her length of stay 1-2 more days pending trend of labs and response to treatment. Functional Status: Reports: Pain Controlled, Tolerating Diet, Ambulating, Urinating. Denies: New Symptoms - Review of Systems General: Reports: No Symptoms, Weakness, Fatigue. Denies: Fever, Malaise, Chills HEENT: Reports: No Symptoms. Denies: Headaches, Sore Throat Pulmonary: Reports: No Symptoms. Denies: Shortness of Breath, Pleuritic Chest Pain, Cough, Sputum, Wheezing Cardiovascular: Reports: No Symptoms. Denies: Chest Pain, Palpitations, Dyspnea on Exertion, Edema Gastrointestinal: Reports: Diarrhea, Melena. Denies: Abdominal Pain, Constipation, Nausea, Vomiting Genitourinary: Reports: No Symptoms. Denies: Pain Musculoskeletal: Reports: No Symptoms Skin: Reports: No Symptoms. Denies: Cyanosis Neurological: Reports: Difficulty Walking, Weakness, Gait Disturbance. Denies: Confusion, Pre-Existing Deficit Psychiatric: Reports: No Symptoms - Patient Data Vitals - Most Recent: Last Vital Signs Temp 97.5 F 08/13/20 07:54 Pulse 83 08/13/20 08:04 Resp 16 08/13/20 07:54 BP 150/63 H 08/13/20 08:04 Pulse Ox 98 08/13/20 07:54 Weight - Most Recent: 103 lb I&O - Last 24 Hours: Intake & Output 08/12/20 08/13/20 08/13/20 22:59 06:59 14:59 Intake Total 810 830 Output Total 500 200 Balance 310 630 Lab Results Last 24 Hours: Laboratory Results - last 24 hr 08/12/20 08/13/20 08/13/20 Range/Units 05:48 04:42 04:42 WBC 11.74 H (3.98-10.04) K/mm3 RBC 3.05 L (3.98-5.22) M/mm3 Hgb 9.6 L D (11.2-15.7) gm/dl Hct 29.2 L (34.1-44.9) % MCV 95.7 H D (79.4-94.8) fl MCH 31.5 (25.6-32.2) pg MCHC 32.9 (32.2-35.5) g/dl RDW Std Deviation 66.7 H (36.4-46.3) fL Plt Count 238 (182-369) K/mm3 MPV 9.8 (9.4-12.3) fl Neut % (Auto) 62.8 (34.0-71.1) % Lymph % (Auto) 20.5 (19.3-51.7) % [place] % (Auto) 10.2 (4.7-12.5) % Eos % (Auto) 5.6 (0.7-5.8) Baso % (Auto) 0.3 (0.1-1.2) % Neut # (Auto) 7.37 H (1.56-6.13) K/mm3 Lymph # (Auto) 2.41 (1.18-3.74) K/mm3 [place] # (Auto) 1.20 H (0.24-0.36) K/mm3 Eos # (Auto) 0.66 H (0.04-0.36) K/mm3 Baso # (Auto) 0.03 (0.01-0.08) K/mm3 Sodium 146 H (136-145) mEq/L Potassium 4.4 (3.5-5.1) mEq/L Chloride 112 H (98-107) mEq/L Carbon Dioxide 20 L (21-32) mEq/L Anion Gap 18.4 H (5-15) BUN 27 H (7-18) mg/dL Creatinine 1.1 H (0.55-1.02) mg/dL Est Cr Clr Drug Dosing 26.37 mL/min Estimated GFR (MDRD) 47 (>60) mL/min BUN/Creatinine Ratio 24.5 H (14-18) Glucose 81 L (83-115) mg/dL Calcium 8.4 L (8.5-10.1) mg/dL Magnesium 1.8 (1.8-2.4) mg/dl Total Bilirubin 0.8 (0.2-1.0) mg/dL AST 21 (15-37) U/L ALT 27 (14-59) U/L Alkaline Phosphatase 51 (46-116) U/L C-Reactive Protein 0.8 (<1.0) mg/dL Total Protein 4.6 L (6.4-8.2) g/dl Albumin 2.0 L (3.4-5.0) g/dl Globulin 2.6 gm/dL Albumin/Globulin Ratio 0.8 L (1-2) Blood Type A POSITIVE Gel Antibody Screen Negative Crossmatch See Detail [place] Results Last 24 Hours: Microbiology 08/06/20 12:00 Aerobic Blood Culture - Preliminary Blood - Venous NO GROWTH AFTER 6 DAYS Anaerobic Blood Culture - Final 08/06/20 12:05 Aerobic Blood Culture - Preliminary Blood - Venous - Lab Draw NO GROWTH AFTER 6 DAYS Anaerobic Blood Culture - Preliminary NO GROWTH AFTER 6 DAYS Med Orders - Current: Current Medications Acetaminophen (Tylenol) 650 mg PO Q6H PRN PRN Reason: Pain (Mild 1-3)/fever Acetaminophen/Codeine Phosphate (Tylenol With Codeine No.3 300mg/30mg) 1 tab PO Q8H PRN PRN Reason: Pain Amitriptyline HCl (Elavil) 25 mg PO BEDTIME [facility] Last Admin: 08/12/20 20:04 Dose: 25 mg Documented by: Amlodipine Besylate (Norvasc) 2.5 mg PO DAILY [facility] Artificial Tears (Refresh Liquigel 1%) 1 - 2 ml EYEBOTH ASDIRECTED PRN PRN Reason: Dry Eyes Cholecalciferol (Vitamin D3) 25 mcg PO DAILY [facility] Last Admin: 08/13/20 08:03 Dose: 25 mcg Documented by: Cholestyramine Resin (Cholestyramine Packet) 4 gm PO DAILY@0700 [facility] Last Admin: 08/13/20 06:00 Dose: 4 gm Documented by: Ezetimibe (Zetia) 10 mg PO DAILY [facility] Last Admin: 08/13/20 08:04 Dose: 10 mg Documented by: Lactated Ringer's (Ringers, Lactated) 1,000 mls @ 50 mls/hr IV ASDIRECTED [facility] Last Admin: 08/12/20 16:26 Dose: 50 mls/hr Documented by: Levothyroxine Sodium (Synthroid) 50 mcg PO MoTuWeThFrSa@0600 [facility] Last Admin: 08/13/20 05:20 Dose: 50 mcg Documented by: Levothyroxine Sodium (Synthroid) 100 mcg PO Naranjo@0600 [facility] Last Admin: 08/12/20 06:21 Dose: 100 mcg Documented by: Loperamide HCl (Imodium) 2 mg PO Q12HR PRN PRN Reason: Diarrhea Last Admin: 08/10/20 09:03 Dose: 2 mg Documented by: Losartan Potassium (Cozaar) 50 mg PO DAILY [facility] Last Admin: 08/13/20 08:03 Dose: 50 mg Documented by: Magnesium Oxide (Magnesium Oxide) 400 mg PO DAILY [facility] Last Admin: 08/13/20 08:03 Dose: 400 mg Documented by: Megestrol Acetate (Megace 40 Mg/Ml Susp) 400 mg PO DAILY [facility] Last Admin: 08/13/20 08:04 Dose: 400 mg Documented by: Metoprolol Succinate (Toprol Xl) 25 mg PO DAILY [facility] Last Admin: 08/13/20 08:04 Dose: 25 mg Documented by: Miscellaneous Information (Remove Patch) 0 ea TRDERM Q72H [facility] Last Admin: 08/10/20 17:36 Dose: Not Given Documented by: Multivitamins (Thera) 1 each PO DAILY [facility] Last Admin: 08/13/20 08:03 Dose: 1 each Documented by: Ganciclovir Ophth (Gel 0.15% Ptom) 0 each EYELF BID [facility] Last Admin: 08/13/20 08:11 Dose: 1 each Documented by: Ondansetron HCl (Zofran) 4 mg IV Q6H PRN PRN Reason: Nausea/Vomiting Last Admin: 08/07/20 04:06 Dose: 4 mg Documented by: Pantoprazole Sodium (Protonix) 40 mg PO DAILY [facility] Last Admin: 08/13/20 08:04 Dose: 40 mg Documented by: Calcitonin ([place]) Nasal [place] Patient's Own Med 0 each SARAH DAILY [facility] Last Admin: 08/13/20 08:09 Dose: 1 each Documented by: Cyclosporine [ Restasis Ophth Drops ] Patient's Own Med 0 each EYEBOTH BID [facility] Last Admin: 08/13/20 08:11 Dose: 1 each Documented by: Polysaccharide Iron Complex (Ferrex 150) 150 mg PO DAILY [facility] Last Admin: 08/13/20 08:04 Dose: 150 mg Documented by: Prednisolone Acetate (Pred Forte 1% Ophth Susp) 0 ml EYEBOTH BID [facility] Last Admin: 08/13/20 08:09 Dose: 1 drop Documented by: Scopolamine (Transderm-Scop) 1.5 mg TRDERM Q72H [facility] Last Admin: 08/10/20 17:35 Dose: 1.5 mg Documented by: Sodium Bicarbonate (Sodium Bicarbonate) 650 mg PO BID [facility] Last Admin: 08/13/20 08:02 Dose: 650 mg Documented by: Sodium Chloride (Saline Flush) 10 ml FLUSH ASDIRECTED PRN PRN Reason: Keep Vein Open Last Admin: 08/10/20 14:17 Dose: 10 ml Documented by: Valacyclovir HCl (Valtrex) 1,000 mg PO DAILY [facility] Last Admin: 08/13/20 08:04 Dose: 1,000 mg Documented by: Vancomycin HCl (Vancocin 125 Mg Capsule) 125 mg PO QID [facility] Last Admin: 08/13/20 08:04 Dose: 125 mg Documented by: Discontinued Medications Acetaminophen (Tylenol) 650 mg PO Q4H PRN PRN Reason: Pain (Mild 1-3)/fever Acetaminophen/Codeine Phosphate (Tylenol With Codeine No.3 300mg/30mg) 1 tab PO Q8H PRN PRN Reason: Pain Amitriptyline HCl (Elavil) 25 mg PO BEDTIME [facility] Amitriptyline HCl (Elavil) 25 mg PO BEDTIME [facility] Last Admin: 08/06/20 20:36 Dose: 25 mg Documented by: Aspirin (Aspirin) 81 mg PO DAILY [facility] Last Admin: 08/10/20 08:42 Dose: 81 mg Documented by: Cholestyramine Resin (Cholestyramine Packet) 4 gm PO DAILY [facility] Diphenhydramine HCl (Benadryl) 12.5 mg IVPUSH ONETIME ONE Stop: 08/10/20 13:51 Last Admin: 08/10/20 13:58 Dose: 12.5 mg Documented by: Ezetimibe (Zetia) 10 mg PO DAILY [facility] Last Admin: 08/07/20 08:47 Dose: 10 mg Documented by: Enoxaparin Sodium (Lovenox) 30 mg SUBCUT Q24H [facility] Last Admin: 08/08/20 09:41 Dose: Not Given Documented by: Famotidine (Pepcid) 20 mg PO DAILY [facility] Last Admin: 08/07/20 08:42 Dose: 20 mg Documented by: Famotidine (Pepcid) 20 mg PO DAILY [facility] Last Admin: 08/10/20 08:42 Dose: 20 mg Documented by: Ceftriaxone Sodium 2 gm/ (Sodium Chloride) 100 mls @ 200 mls/hr IV ONETIME ONE Stop: 08/06/20 11:42 Last Admin: 08/06/20 12:12 Dose: 200 mls/hr Documented by: Sodium Chloride (Normal Saline) 1,000 mls @ 1,000 mls/hr IV .BOLUS STA Stop: 08/06/20 12:10 Last Admin: 08/06/20 11:30 Dose: 1,000 mls/hr Documented by: Ceftriaxone Sodium 2 gm/ (Sodium Chloride) 100 mls @ 200 mls/hr IV Q24H [facility] Lactated Ringer's (Ringers, Lactated) 1,000 mls @ 50 mls/hr IV ASDIRECTED [facility] Stop: 08/07/20 09:59 Last Infusion: 08/07/20 10:12 Dose: 100 mls/hr Documented by: Ceftriaxone Sodium 1 gm/ (Sodium Chloride) 100 mls @ 200 mls/hr IV Q24H [facility] Last Admin: 08/07/20 11:59 Dose: 200 mls/hr Documented by: Magnesium Sulfate (Magnesium Sulfate In Water 2 Gm/50 Ml) 2 gm in 50 mls @ 25 mls/hr IV ONETIME ONE Stop: 08/07/20 09:59 Last Admin: 08/07/20 08:53 Dose: 25 mls/hr Documented by: Promethazine HCl 12.5 mg/ (Sodium Chloride) 50.5 mls @ 100 mls/hr IV ONETIME ONE Stop: 08/07/20 10:30 Last Admin: 08/07/20 11:02 Dose: 100 mls/hr Documented by: Lactated Ringer's (Ringers, Lactated) 1,000 mls @ 100 mls/hr IV ASDIRECTED [facility] Last Admin: 08/07/20 23:45 Dose: 100 mls/hr Documented by: Lactated Ringer's (Ringers, Lactated) 1,000 mls @ 50 mls/hr IV ASDIRECTED [facility] Sodium Chloride (Normal Saline) 250 mls @ 100 mls/hr IV ASDIRECTED [facility] Last Admin: 08/08/20 13:39 Dose: 100 mls/hr Documented by: Multivitamins/Minerals 10 ml/ (Dextrose/Lactated Ringer's) 1,010 mls @ 50 mls/hr IV ASDIRECTED [facility] Last Admin: 08/11/20 10:40 Dose: 50 mls/hr Documented by: Sodium Chloride (Normal Saline) 250 mls @ 100 mls/hr IV ASDIRECTED [facility] Last Admin: 08/12/20 08:49 Dose: 100 mls/hr Documented by: Iopamidol (Isovue-300 (61%)) 100 ml IVPUSH ONETIME ONE Stop: 08/10/20 13:39 Last Admin: 08/10/20 14:17 Dose: 100 ml Documented by: Levothyroxine Sodium (Synthroid) 50 mcg PO MoTuWeThFrSa@0600 [facility] Last Admin: 08/07/20 06:36 Dose: 50 mcg Documented by: Levothyroxine Sodium (Synthroid) 100 mcg PO Naranjo@0600 [facility] Metoprolol Succinate (Toprol Xl) 25 mg PO DAILY [facility] Last Admin: 08/07/20 08:46 Dose: 25 mg Documented by: Ondansetron HCl (Zofran) 4 mg IVPUSH ONETIME ONE Stop: 08/06/20 11:12 Last Admin: 08/06/20 11:30 Dose: 4 mg Documented by: Olmesartan Medoxomil 20 Mg Patient's Own Med 0 each PO DAILY [facility] Last Admin: 08/07/20 08:44 Dose: 1 each Documented by: Prednisolone Acetate (Pred Forte 1% Ophth Susp) 0 ml EYELF 6XDAY [facility] Last Admin: 08/06/20 20:36 Dose: 1 drop Documented by: Sodium Bicarbonate (Sodium Bicarbonate) 650 mg PO BID [facility] Last Admin: 08/07/20 08:45 Dose: 650 mg Documented by: Sodium Chloride (Saline Flush) 10 ml FLUSH ASDIRECTED [facility] Stop: 08/10/20 18:00 Valacyclovir HCl (Valtrex) 1,000 mg PO DAILY [facility] Last Admin: 08/07/20 08:47 Dose: 1,000 mg Documented by: - Exam Quality Assessment: DVT Prophylaxis General: Alert, Oriented, Cooperative, No Acute Distress HEENT: Pupils Equal, Pupils Reactive, Mucous Membr. Moist/[place] Neck: Supple, Trachea Midline Lungs: Clear to Auscultation, Normal Respiratory Effort Cardiovascular: Regular Rate, Regular Rhythm GI/Abdominal Exam: Normal Bowel Sounds, Soft, Non-Tender, No Distention (Female) Exam: Deferred Back Exam: Normal Inspection, Full Range of Motion Extremities: Normal Inspection, Normal Range of Motion, Non-Tender, No Pedal Edema, Normal Capillary Refill, Other (Severe arthritic changes to bilateral hands) Skin: Warm, Dry, Intact Neurological: No New Focal Deficit Psy/Mental Status: Alert, Normal Affect, Normal Mood Sepsis Event Note - Evaluation Sepsis Screening Result: No Definite Risk - Focused Exam Vital Signs: Vital Signs Temp Pulse Resp BP Pulse Ox 08/13/20 08:04 83 150/63 H 08/13/20 08:03 150/63 H 08/13/20 07:54 97.5 F 83 16 150/63 H 98 08/13/20 00:29 98.4 F 87 18 142/61 H 99 - Problem List & Annotations (1) UTI (urinary tract infection) SNOMED Code(s): 33565429 Code(s): N39.0 - URINARY TRACT INFECTION, SITE NOT SPECIFIED Status: Resolved Priority: High Current Visit: Yes Qualifiers: Urinary tract infection type: acute cystitis Hematuria presence: without hematuria Qualified Code(s): N30.00 - Acute cystitis without hematuria (2) Nausea SNOMED Code(s): 656633259 Code(s): R11.0 - NAUSEA Status: Acute Priority: High Current Visit: Yes (3) Dehydration SNOMED Code(s): 75881402 Code(s): E86.0 - DEHYDRATION Status: Resolved Priority: High Current Visit: Yes (4) HLD (hyperlipidemia) SNOMED Code(s): 69942350 Code(s): E78.5 - HYPERLIPIDEMIA, UNSPECIFIED Status: Chronic Priority: Low Current Visit: No Qualifiers: Hyperlipidemia type: unspecified Qualified Code(s): E78.5 - Hyperlipidemia, unspecified (5) HTN (hypertension) SNOMED Code(s): 89492752 Code(s): I10 - ESSENTIAL (PRIMARY) HYPERTENSION Status: Chronic Priority: Medium Current Visit: No Qualifiers: Hypertension type: unspecified Qualified Code(s): I10 - Essential (primary) hypertension (6) Fibromyalgia SNOMED Code(s): 744098285 Code(s): M79.7 - FIBROMYALGIA Status: Chronic Priority: Low Current Visit: No (7) Arthritis SNOMED Code(s): 4723523 Code(s): M19.90 - UNSPECIFIED OSTEOARTHRITIS, UNSPECIFIED SITE Status: Chronic Priority: Low Current Visit: No (8) Hypoalbuminemia SNOMED Code(s): 594512561 Code(s): E88.09 - OTH DISORDERS OF PLASMA-PROTEIN METABOLISM, NEC Status: Acute Priority: High Current Visit: Yes (9) Weakness SNOMED Code(s): 53819416 Code(s): R53.1 - WEAKNESS Status: Acute Priority: High Current Visit: Yes (10) [id number] kidney injury SNOMED Code(s): 719292668 Code(s): N17.9 - ACUTE KIDNEY FAILURE, UNSPECIFIED; N18.9 - CHRONIC KIDNEY DISEASE, UNSPECIFIED Status: Acute Priority: High Current Visit: Yes Qualifiers: Acute renal failure type: unspecified Chronic kidney disease stage: stage 4 (severe) Qualified Code(s): N17.9 - Acute kidney failure, unspecified; N18.4 - Chronic kidney disease, stage 4 (severe) (11) Hypomagnesemia SNOMED Code(s): 163334309 Code(s): E83.42 - HYPOMAGNESEMIA Status: Resolved Priority: High Current Visit: Yes (12) Anemia SNOMED Code(s): 460806207 Code(s): D64.9 - ANEMIA, UNSPECIFIED Status: Acute Priority: High Current Visit: Yes Qualifiers: Anemia type: unspecified type Qualified Code(s): D64.9 - Anemia, unspecified - Problem List Review Problem List Initiated/Reviewed/Updated: Yes - My Orders Last 24 Hours: My Active Orders 08/14/20 05:11 CBC WITH AUTO DIFF [HEME] AM CMP [COMPREHENSIVE METABOLIC PN,CMP] [CHEM] AM CRP [C-REACTIVE PROTEIN] [CHEM] AM MAGNESIUM [CHEM] AM - Assessment Assessment:: Assessment - day of admission 08/06/20 * 85yo female who presents to our ED via ambulance with urinary complaints, nausea and decreased appetite * Reportedly diagnosed with UTI at walk-in clinic on thursday08/03/20 and given cephalexin * Reports nausea and anorexia; also has chronic diarrhea * Denies any current urinary symptoms * Denies fever, cough, dyspnea * Labs in ED: * WBC 14.31 (likely worsened by dehydration) * Hgb 11.3 * Plt 415 * Neutrophils 10.90 * INR 1.02 * Sodium 139 * Potassium 4.1 * Carbon dioxide 18 * Anion gap 20.1 * BUN 51, Creatinin 1.8, GFR 27 * Glucose 132 * Calcium 10.2 * Bilirubin 0.4 * AST 49, ALT 108, Alk Phos 147 * Albumin 3.3 * Lipase 186 * Lactic acid 1.0 * Pro-BNP 1268 * UA Negative however trace protein noted * SARS-CoV-2 RNA negative * Given 1L fluid bolus, Zofran, and started on 2gm Rocephin in ED * Admitted observation status for further treatment of UTI and dehydration 08/07/20 * Remains nauseated * Reports epigastric pain, No BM (usually has chronic diarrhea), minimal urine output, Chills * Labs: * WBC 12.93 * Hemoglobin 8.0 * Platelets 306 * Neutrophils 8.74 * Sodium 139 * Potassium 3.7 * Carbon dioxide 19 * Anion gap 15.7 * BUN 52, Creatinine 1.5, GFR 33 * Magnesium 1.7 * AST 24, ALT 64, Alk Phos 90 * Protein 5.5 * Albumin 2.3 * Will add IV Phenergan for nausea * Increase IV fluids as patient continues to be dehydrated * Blood cultures pending. * Reviewed [place] [facility] notes: Sommers Sensitive E. Coli, 30,000 CFUs. * Continue IV ABX pending blood cultures * Check troponin/CKMB due to abdominal pain, continued nausea * Upgraded to inpatient due to continuation of symptoms, minimal lab improvement, continued work-up of symptoms. 08/08/20 * Remains nauseated but improved * Will discontinue abx today as she has completed treatment * Blood cultures negative thus far * Labs: * WBC 10.47 * Hgb 6.9 * MCV 109.2 * Platelet 278 * Neutrophil 6.45 * Anion gap 13.7 * BUN 30; Creatinine 1.2; GFR 43 * Magnesium 2.1 * Albumin 2.0 * Blood smear shows 2+ macrocytosis, 1+ target cells, 1+ teardrop cells, platelets adequate with normal morphology * Will transfuse 1 unit PRBC * Discontinue IV fluids today * Re-check/monitor labs * Check reticulocyte count and monitor labs 08/09/20 * Continues to be nauseated but states that it is still better than yesterday * Antibiotics and IV fluids were discontinued yesterday. * Received 1 unit PRBCs yesterday * Labs today: * WBC 11.71 * Hemoglobin 8.8 * MCV 102.7 * Platelets 267 * Neutrophils 7.82 * BUN 31, creatinine 1.2, GFR 43 * Albumin 2.3 * % reticulocytes 2.13 * Continue current treatment plan * Hopeful for discharge tomorrow - 08/10/20 08/10/20 * Reports continued but improved abdominal pain * Has mild epigastric pain * Leukocytosis has increased today and hgb has dropped * Labs: * WBC 14.18 * Hgb 7.8 * MCV 104.2 * Plt 272 * Neutrophils 10.12 * Sodium 143 * Potassium 3.8 * Anion gap 15.8 * BUN 34, Creatinine 1.2, GFR 43 * Glucose 84 * Consulted Dr. Green, Surgeon consumer services consultant * Patient will remain inpatient due to concerns of leukocytosis and anemia. 08/11/20 * Positive for C. difficile colitis Continue vancomycin 125 mg p.o. every 6 hours Contact isolation Regular diet * GI bleeding hemoglobin 7.[address] Sheppard is on board. Greatly appreciate it. * WBC 11.66, * AWILDA or AWILDA on CKD Stage III Avoid nephrotoxic meds Repeat the renal function in the morning * Blood glucose around 80. D5 LR * Repeat CBC and CMP in the morning 08/12/20 * C. difficile colitis Continue vancomycin 125 mg p.o. every 6 hours Contact isolation Regular diet * GI bleeding hemoglobin 6.1 today. It was a 7.5 we are Thursday. 2 units of PRBC General surgeon Dr. Sheppard is on board. Greatly appreciate it. No need scope at this time. Continue medical treatment and CBC in the morning. * WBC 12.04 * AWILDA or AWILDA on CKD Stage III Avoid nephrotoxic meds Repeat the renal function in the morning * Blood glucose is borderline low - D5 LR * Repeat CBC and CMP in the morning 08/13/20 * Reports continued weakness * Working with PT/OT * Continuing 125mg PO vancomycin Q6H * Continue contact isolation * Hgb 9.6 s/p 2 units of PRBCs yesterday * Dr. Green following * WBC improved to 11.74 * CRP 0.8 * Renal status improved - BUN 27, Creatinine 1.1, GFR 47 * Glucose 81 - patient now on regular diet * Continue to monitor daily labs * Hopeful for discharge in next 1-2 days pending lab trends and continued response to treatment. - Plan Plan:: Anemia, S/P 3 unit PRBCs * Re-check labs tomorrow * Patient on iron supplementation so occult stool is useless - patient reports melena * Dr. Green is on board * CT abdomen and pelvis with IV/Oral contrast -no acute change * Daily PPI * Treat underlying C. Difficile colitis C difficile colitis Acute on chronic renal insufficiency, appears to be at baseline Nausea, improved Hypoalbuminemia Weakness * Antiemetics as ordered * Re-check AM labs * Cotton Picker consult * Obtain old records * PT/OT for weakness * CM/SW * PO Vancomycin * IV fluids as as ordered HLD (hyperlipidemia) HTN (hypertension) Fibromyalgia Arthritis * BP has been elevated (110-158 systolic) * Start daily amlodipine 2.5mg * Reconcile/review home medications Resolved: UTI (urinary tract infection) Dehydration Hypomagnesemia Code Status: Full code PCP: Dr. Bowman DVT Prophylaxis: Lovenox-> change to SCDs as patient has worsening anemia requiring transfusion Social: Patient lives in a house with her . They are talking about moving to and PRISON in [place]. She normally gets around without assistance but has been utilizing a cane because she is so weak. Disposition: Patient admitted observation status for management of dehydration, nausea, and awaiting blood cultures. Upgraded to inpatient on 08/07/20 as patient remains weak, nauseated, complains of abdominal pain, and had minimal improvement on labs. Patient may need to stay in about 1-2 more days because she was newly diagnosed with C. difficile colitis and GI bleeding
[2020-08-13] MEDS ORDERED: Magnesium Sulfate/Water 2 GM/50 ML BAG IV ONE (08:45)
[2020-08-13] MEDS ORDERED: amLODIPine 5 MG Tab PO SCH (09:00)
[2020-08-13] MEDS: amLODIPine 2.5 MG Tab PO SCH (09:19)
[2020-08-13] MEDS: Lactated Ringers 1,000 ML IV SCH (12:12)
[2020-08-13] MEDS: Scopolamine 1.5 MG Transdermal Patch TRDERM SCH (16:23)
[2020-08-13] MEDS: Amitriptyline 25 MG Tab PO SCH (21:25)
[2020-08-14] MEDS: Cholestyramine/Sucrose Powder 4 GM Packet PO SCH (06:24)
[2020-08-14] MEDS: Levothyroxine 50 MCG Tab PO SCH (06:24)
--- NOTE | 2020-08-14 07:32 | PCM.PN ---
- General Info Date of Service: 08/14/20 Admission Dx/Problem (Free Text): Dehydration post UTI - Patient Data Vitals - Most Recent: Last Vital Signs Temp 98.2 F 08/14/20 04:05 Pulse 83 08/14/20 04:05 Resp 16 08/14/20 04:05 BP 147/73 H 08/14/20 04:05 Pulse Ox 98 08/14/20 04:05 Weight - Most Recent: 103 lb 1.6 oz I&O - Last 24 Hours: Intake & Output 08/13/20 08/14/20 08/14/20 22:59 06:59 14:59 Intake Total 1321 650 Output Total 800 Balance 521 650 [place] Results Last 24 Hours: Microbiology 08/06/20 12:00 Aerobic Blood Culture - Final Blood - Venous NO GROWTH AFTER 7 DAYS Anaerobic Blood Culture - Final 08/06/20 12:05 Aerobic Blood Culture - Final Blood - Venous - Lab Draw NO GROWTH AFTER 7 DAYS Anaerobic Blood Culture - Final NO GROWTH AFTER 7 DAYS Med Orders - Current: Current Medications Acetaminophen (Tylenol) 650 mg PO Q6H PRN PRN Reason: Pain (Mild 1-3)/fever Acetaminophen/Codeine Phosphate (Tylenol With Codeine No.3 300mg/30mg) 1 tab PO Q8H PRN PRN Reason: Pain Amitriptyline HCl (Elavil) 25 mg PO BEDTIME [facility] Last Admin: 08/13/20 21:25 Dose: 25 mg Documented by: Amlodipine Besylate (Norvasc) 2.5 mg PO DAILY [facility] Last Admin: 08/13/20 09:19 Dose: 2.5 mg Documented by: Artificial Tears (Refresh Liquigel 1%) 1 - 2 ml EYEBOTH ASDIRECTED PRN PRN Reason: Dry Eyes Cholecalciferol (Vitamin D3) 25 mcg PO DAILY [facility] Last Admin: 08/13/20 08:03 Dose: 25 mcg Documented by: Cholestyramine Resin (Cholestyramine Packet) 4 gm PO DAILY@0700 [facility] Last Admin: 08/14/20 06:24 Dose: 4 gm Documented by: Ezetimibe (Zetia) 10 mg PO DAILY [facility] Last Admin: 08/13/20 08:04 Dose: 10 mg Documented by: Lactated Ringer's (Ringers, Lactated) 1,000 mls @ 50 mls/hr IV ASDIRECTED [facility] Last Admin: 08/13/20 12:12 Dose: 50 mls/hr Documented by: Levothyroxine Sodium (Synthroid) 50 mcg PO MoTuWeThFrSa@0600 [facility] Last Admin: 08/14/20 06:24 Dose: 50 mcg Documented by: Levothyroxine Sodium (Synthroid) 100 mcg PO Naranjo@0600 [facility] Last Admin: 08/12/20 06:21 Dose: 100 mcg Documented by: Loperamide HCl (Imodium) 2 mg PO Q12HR PRN PRN Reason: Diarrhea Last Admin: 08/10/20 09:03 Dose: 2 mg Documented by: Losartan Potassium (Cozaar) 50 mg PO DAILY [facility] Last Admin: 08/13/20 08:03 Dose: 50 mg Documented by: Magnesium Oxide (Magnesium Oxide) 400 mg PO DAILY [facility] Last Admin: 08/13/20 08:03 Dose: 400 mg Documented by: Megestrol Acetate (Megace 40 Mg/Ml Susp) 400 mg PO DAILY [facility] Last Admin: 08/13/20 08:04 Dose: 400 mg Documented by: Metoprolol Succinate (Toprol Xl) 25 mg PO DAILY [facility] Last Admin: 08/13/20 08:04 Dose: 25 mg Documented by: Miscellaneous Information (Remove Patch) 0 ea TRDERM Q72H [facility] Last Admin: 08/13/20 16:19 Dose: Not Given Documented by: Multivitamins (Thera) 1 each PO DAILY [facility] Last Admin: 08/13/20 08:03 Dose: 1 each Documented by: Ganciclovir Ophth (Gel 0.15% Ptom) 0 each EYELF BID [facility] Last Admin: 08/13/20 21:25 Dose: 1 each Documented by: Ondansetron HCl (Zofran) 4 mg IV Q6H PRN PRN Reason: Nausea/Vomiting Last Admin: 08/07/20 04:06 Dose: 4 mg Documented by: Pantoprazole Sodium (Protonix) 40 mg PO DAILY [facility] Last Admin: 08/13/20 08:04 Dose: 40 mg Documented by: Calcitonin ([place]) Nasal [place] Patient's Own Med 0 each SARAH DAILY [facility] Last Admin: 08/13/20 08:09 Dose: 1 each Documented by: Cyclosporine [ Restasis Ophth Drops ] Patient's Own Med 0 each EYEBOTH BID [facility] Last Admin: 08/13/20 21:26 Dose: 1 each Documented by: Polysaccharide Iron Complex (Ferrex 150) 150 mg PO DAILY [facility] Last Admin: 08/13/20 08:04 Dose: 150 mg Documented by: Prednisolone Acetate (Pred Forte 1% Ophth Susp) 0 ml EYEBOTH BID [facility] Last Admin: 08/13/20 21:26 Dose: 1 drop Documented by: Scopolamine (Transderm-Scop) 1.5 mg TRDERM Q72H [facility] Last Admin: 08/13/20 16:23 Dose: 1.5 mg Documented by: Sodium Bicarbonate (Sodium Bicarbonate) 650 mg PO BID [facility] Last Admin: 08/13/20 21:25 Dose: 650 mg Documented by: Sodium Chloride (Saline Flush) 10 ml FLUSH ASDIRECTED PRN PRN Reason: Keep Vein Open Last Admin: 08/10/20 14:17 Dose: 10 ml Documented by: Valacyclovir HCl (Valtrex) 1,000 mg PO DAILY [facility] Last Admin: 08/13/20 08:04 Dose: 1,000 mg Documented by: Vancomycin HCl (Vancocin 125 Mg Capsule) 125 mg PO QID [facility] Last Admin: 08/13/20 21:25 Dose: 125 mg Documented by: Discontinued Medications Acetaminophen (Tylenol) 650 mg PO Q4H PRN PRN Reason: Pain (Mild 1-3)/fever Acetaminophen/Codeine Phosphate (Tylenol With Codeine No.3 300mg/30mg) 1 tab PO Q8H PRN PRN Reason: Pain Amitriptyline HCl (Elavil) 25 mg PO BEDTIME [facility] Amitriptyline HCl (Elavil) 25 mg PO BEDTIME [facility] Last Admin: 08/06/20 20:36 Dose: 25 mg Documented by: Amlodipine Besylate (Norvasc) 2.5 mg PO DAILY [facility] Last Admin: 08/13/20 09:35 Dose: Not Given Documented by: Aspirin (Aspirin) 81 mg PO DAILY [facility] Last Admin: 08/10/20 08:42 Dose: 81 mg Documented by: Cholestyramine Resin (Cholestyramine Packet) 4 gm PO DAILY [facility] Diphenhydramine HCl (Benadryl) 12.5 mg IVPUSH ONETIME ONE Stop: 08/10/20 13:51 Last Admin: 08/10/20 13:58 Dose: 12.5 mg Documented by: Ezetimibe (Zetia) 10 mg PO DAILY [facility] Last Admin: 08/07/20 08:47 Dose: 10 mg Documented by: Enoxaparin Sodium (Lovenox) 30 mg SUBCUT Q24H [facility] Last Admin: 08/08/20 09:41 Dose: Not Given Documented by: Famotidine (Pepcid) 20 mg PO DAILY [facility] Last Admin: 08/07/20 08:42 Dose: 20 mg Documented by: Famotidine (Pepcid) 20 mg PO DAILY [facility] Last Admin: 08/10/20 08:42 Dose: 20 mg Documented by: Ceftriaxone Sodium 2 gm/ (Sodium Chloride) 100 mls @ 200 mls/hr IV ONETIME ONE Stop: 08/06/20 11:42 Last Admin: 08/06/20 12:12 Dose: 200 mls/hr Documented by: Sodium Chloride (Normal Saline) 1,000 mls @ 1,000 mls/hr IV .BOLUS STA Stop: 08/06/20 12:10 Last Admin: 08/06/20 11:30 Dose: 1,000 mls/hr Documented by: Ceftriaxone Sodium 2 gm/ (Sodium Chloride) 100 mls @ 200 mls/hr IV Q24H [facility] Lactated Ringer's (Ringers, Lactated) 1,000 mls @ 50 mls/hr IV ASDIRECTED [facility] Stop: 08/07/20 09:59 Last Infusion: 08/07/20 10:12 Dose: 100 mls/hr Documented by: Ceftriaxone Sodium 1 gm/ (Sodium Chloride) 100 mls @ 200 mls/hr IV Q24H [facility] Last Admin: 08/07/20 11:59 Dose: 200 mls/hr Documented by: Magnesium Sulfate (Magnesium Sulfate In Water 2 Gm/50 Ml) 2 gm in 50 mls @ 25 mls/hr IV ONETIME ONE Stop: 08/07/20 09:59 Last Admin: 08/07/20 08:53 Dose: 25 mls/hr Documented by: Promethazine HCl 12.5 mg/ (Sodium Chloride) 50.5 mls @ 100 mls/hr IV ONETIME ONE Stop: 08/07/20 10:30 Last Admin: 08/07/20 11:02 Dose: 100 mls/hr Documented by: Lactated Ringer's (Ringers, Lactated) 1,000 mls @ 100 mls/hr IV ASDIRECTED [facility] Last Admin: 08/07/20 23:45 Dose: 100 mls/hr Documented by: Lactated Ringer's (Ringers, Lactated) 1,000 mls @ 50 mls/hr IV ASDIRECTED [facility] Sodium Chloride (Normal Saline) 250 mls @ 100 mls/hr IV ASDIRECTED [facility] Last Admin: 08/08/20 13:39 Dose: 100 mls/hr Documented by: Multivitamins/Minerals 10 ml/ (Dextrose/Lactated Ringer's) 1,010 mls @ 50 mls/hr IV ASDIRECTED [facility] Last Admin: 08/11/20 10:40 Dose: 50 mls/hr Documented by: Sodium Chloride (Normal Saline) 250 mls @ 100 mls/hr IV ASDIRECTED [facility] Last Admin: 08/12/20 08:49 Dose: 100 mls/hr Documented by: Magnesium Sulfate (Magnesium Sulfate In Water 2 Gm/50 Ml) 2 gm in 50 mls @ 25 mls/hr IV ONETIME ONE Stop: 08/13/20 10:44 Last Admin: 08/13/20 09:20 Dose: 25 mls/hr Documented by: Iopamidol (Isovue-300 (61%)) 100 ml IVPUSH ONETIME ONE Stop: 08/10/20 13:39 Last Admin: 08/10/20 14:17 Dose: 100 ml Documented by: Levothyroxine Sodium (Synthroid) 50 mcg PO MoTuWeThFrSa@0600 [facility] Last Admin: 08/07/20 06:36 Dose: 50 mcg Documented by: Levothyroxine Sodium (Synthroid) 100 mcg PO [place]@0600 [facility] Metoprolol Succinate (Toprol Xl) 25 mg PO DAILY [facility] Last Admin: 08/07/20 08:46 Dose: 25 mg Documented by: Ondansetron HCl (Zofran) 4 mg IVPUSH ONETIME ONE Stop: 08/06/20 11:12 Last Admin: 08/06/20 11:30 Dose: 4 mg Documented by: Olmesartan Medoxomil 20 Mg Patient's Own Med 0 each PO DAILY [facility] Last Admin: 08/07/20 08:44 Dose: 1 each Documented by: Prednisolone Acetate (Pred Forte 1% Ophth Susp) 0 ml EYELF 6XDAY [facility] Last Admin: 08/06/20 20:36 Dose: 1 drop Documented by: Sodium Bicarbonate (Sodium Bicarbonate) 650 mg PO BID [facility] Last Admin: 08/07/20 08:45 Dose: 650 mg Documented by: Sodium Chloride (Saline Flush) 10 ml FLUSH ASDIRECTED [facility] Stop: 08/10/20 18:00 Valacyclovir HCl (Valtrex) 1,000 mg PO DAILY [facility] Last Admin: 08/07/20 08:47 Dose: 1,000 mg Documented by: Sepsis Event Note - Evaluation Sepsis Screening Result: No Definite Risk - Focused Exam Vital Signs: Vital Signs Temp Pulse Resp BP Pulse Ox 08/14/20 04:05 98.2 F 83 16 147/73 H 98 08/13/20 23:37 97.2 F 82 16 149/72 H 98 08/13/20 19:40 98.8 F 79 16 149/69 H 100 - Problem List & Annotations (1) UTI (urinary tract infection) SNOMED Code(s): 25501250 Code(s): N39.0 - URINARY TRACT INFECTION, SITE NOT SPECIFIED Status: Resolved Priority: High Current Visit: Yes Qualifiers: Urinary tract infection type: acute cystitis Hematuria presence: without hematuria Qualified Code(s): N30.00 - Acute cystitis without hematuria (2) Nausea SNOMED Code(s): 822297416 Code(s): R11.0 - NAUSEA Status: Acute Priority: High Current Visit: Yes (3) Dehydration SNOMED Code(s): 62495386 Code(s): E86.0 - DEHYDRATION Status: Resolved Priority: High Current Visit: Yes (4) HLD (hyperlipidemia) SNOMED Code(s): 82024269 Code(s): E78.5 - HYPERLIPIDEMIA, UNSPECIFIED Status: Chronic Priority: Low Current Visit: No Qualifiers: Hyperlipidemia type: unspecified Qualified Code(s): E78.5 - Hyperlipidemia, unspecified (5) HTN (hypertension) SNOMED Code(s): 88171506 Code(s): I10 - ESSENTIAL (PRIMARY) HYPERTENSION Status: Chronic Priority: Medium Current Visit: No Qualifiers: Hypertension type: unspecified Qualified Code(s): I10 - Essential (primary) hypertension (6) Fibromyalgia SNOMED Code(s): 989754693 Code(s): M79.7 - FIBROMYALGIA Status: Chronic Priority: Low Current Visit: No (7) Arthritis SNOMED Code(s): 9108933 Code(s): M19.90 - UNSPECIFIED OSTEOARTHRITIS, UNSPECIFIED SITE Status: Chronic Priority: Low Current Visit: No (8) Hypoalbuminemia SNOMED Code(s): 116610748 Code(s): E88.09 - OTH DISORDERS OF PLASMA-PROTEIN METABOLISM, NEC Status: Acute Priority: High Current Visit: Yes (9) Weakness SNOMED Code(s): 45016733 Code(s): R53.1 - WEAKNESS Status: Acute Priority: High Current Visit: Yes (10) [id number]-[id number] kidney injury SNOMED Code(s): 002519834 Code(s): N17.9 - ACUTE KIDNEY FAILURE, UNSPECIFIED; N18.9 - CHRONIC KIDNEY DISEASE, UNSPECIFIED Status: Acute Priority: High Current Visit: Yes Qualifiers: Acute renal failure type: unspecified Chronic kidney disease stage: stage 4 (severe) Qualified Code(s): N17.9 - Acute kidney failure, unspecified; N18.4 - Chronic kidney disease, stage 4 (severe) (11) Hypomagnesemia SNOMED Code(s): 800838569 Code(s): E83.42 - HYPOMAGNESEMIA Status: Resolved Priority: High Current Visit: Yes (12) Anemia SNOMED Code(s): 638785513 Code(s): D64.9 - ANEMIA, UNSPECIFIED Status: Acute Priority: High Current Visit: Yes Qualifiers: Anemia type: unspecified type Qualified Code(s): D64.9 - Anemia, unspecified - My Orders Last 24 Hours: My Active Orders 08/14/20 06:58 CBC WITH AUTO DIFF [HEME] AM CMP [COMPREHENSIVE METABOLIC PN,CMP] [CHEM] AM MAGNESIUM [CHEM] AM - Assessment Assessment:: Assessment - day of admission 08/06/20 * 85yo female who presents to our ED via ambulance with urinary complaints, nausea and decreased appetite * Reportedly diagnosed with UTI at walk-in clinic on thursday08/03/20 and given cephalexin * Reports nausea and anorexia; also has chronic diarrhea * Denies any current urinary symptoms * Denies fever, cough, dyspnea * Labs in ED: * WBC 14.31 (likely worsened by dehydration) * Hgb 11.3 * Plt 415 * Neutrophils 10.90 * INR 1.02 * Sodium 139 * Potassium 4.1 * Carbon dioxide 18 * Anion gap 20.1 * BUN 51, Creatinin 1.8, GFR 27 * Glucose 132 * Calcium 10.2 * Bilirubin 0.4 * AST 49, ALT 108, Alk Phos 147 * Albumin 3.3 * Lipase 186 * Lactic acid 1.0 * Pro-BNP 1268 * UA Negative however trace protein noted * SARS-CoV-2 RNA negative * Given 1L fluid bolus, Zofran, and started on 2gm Rocephin in ED * Admitted observation status for further treatment of UTI and dehydration 08/07/20 * Remains nauseated * Reports epigastric pain, No BM (usually has chronic diarrhea), minimal urine output, Chills * Labs: * WBC 12.93 * Hemoglobin 8.0 * Platelets 306 * Neutrophils 8.74 * Sodium 139 * Potassium 3.7 * Carbon dioxide 19 * Anion gap 15.7 * BUN 52, Creatinine 1.5, GFR 33 * Magnesium 1.7 * AST 24, ALT 64, Alk Phos 90 * Protein 5.5 * Albumin 2.3 * Will add IV Phenergan for nausea * Increase IV fluids as patient continues to be dehydrated * Blood cultures pending. * Reviewed [facility] notes: Sommers Sensitive E. Coli, 30,000 CFUs. * Continue IV ABX pending blood cultures * Check troponin/CKMB due to abdominal pain, continued nausea * Upgraded to inpatient due to continuation of symptoms, minimal lab improvement, continued work-up of symptoms. 08/08/20 * Remains nauseated but improved * Will discontinue abx today as she has completed treatment * Blood cultures negative thus far * Labs: * WBC 10.47 * Hgb 6.9 * MCV 109.2 * Platelet 278 * Neutrophil 6.45 * Anion gap 13.7 * BUN 30; Creatinine 1.2; GFR 43 * Magnesium 2.1 * Albumin 2.0 * Blood smear shows 2+ macrocytosis, 1+ target cells, 1+ teardrop cells, platelets adequate with normal morphology * Will transfuse 1 unit PRBC * Discontinue IV fluids today * Re-check/monitor labs * Check reticulocyte count and monitor labs 08/09/20 * Continues to be nauseated but states that it is still better than yesterday * Antibiotics and IV fluids were discontinued yesterday. * Received 1 unit PRBCs yesterday * Labs today: * WBC 11.71 * Hemoglobin 8.8 * MCV 102.7 * Platelets 267 * Neutrophils 7.82 * BUN 31, creatinine 1.2, GFR 43 * Albumin 2.3 * % reticulocytes 2.13 * Continue current treatment plan * Hopeful for discharge tomorrow - 08/10/20 08/10/20 * Reports continued but improved abdominal pain * Has mild epigastric pain * Leukocytosis has increased today and hgb has dropped * Labs: * WBC 14.18 * Hgb 7.8 * MCV 104.2 * Plt 272 * Neutrophils 10.12 * Sodium 143 * Potassium 3.8 * Anion gap 15.8 * BUN 34, Creatinine 1.2, GFR 43 * Glucose 84 * Consulted Dr. Green, Surgeon information security associate * Patient will remain inpatient due to concerns of leukocytosis and anemia. 08/11/20 * Positive for C. difficile colitis Continue vancomycin 125 mg p.o. every 6 hours Contact isolation Regular diet * GI bleeding hemoglobin 7.[address] Sheppard is on board. Greatly appreciate it. * WBC 11.66, * AWILDA or AWILDA on CKD Stage III Avoid nephrotoxic meds Repeat the renal function in the morning * Blood glucose around 80. D5 LR * Repeat CBC and CMP in the morning 08/12/20 * C. difficile colitis Continue vancomycin 125 mg p.o. every 6 hours Contact isolation Regular diet * GI bleeding hemoglobin 6.1 today. It was a 7.5 we are Thursday. 2 units of PRBC General surgeon Dr. Sheppard is on board. Greatly appreciate it. No need scope at this time. Continue medical treatment and CBC in the morning. * WBC 12.04 * AWILDA or AWILDA on CKD Stage III Avoid nephrotoxic meds Repeat the renal function in the morning * Blood glucose is borderline low - D5 LR * Repeat CBC and CMP in the morning 08/13/20 * Reports continued weakness * Working with PT/OT * Continuing 125mg PO vancomycin Q6H * Continue contact isolation * Hgb 9.6 s/p 2 units of PRBCs yesterday * Dr. Green following * WBC improved to 11.74 * CRP 0.8 * Renal status improved - BUN 27, Creatinine 1.1, GFR 47 * Glucose 81 - patient now on regular diet * Continue to monitor daily labs * Hopeful for discharge in next 1-2 days pending lab trends and continued response to treatment. - Plan Plan:: Anemia, S/P 3 unit PRBCs * Re-check labs tomorrow * Patient on iron supplementation so occult stool is useless - patient reports melena * Dr. Green is on board * CT abdomen and pelvis with IV/Oral contrast -no acute change * Daily PPI * Treat underlying C. Difficile colitis C difficile colitis Acute on chronic renal insufficiency, appears to be at baseline Nausea, improved Hypoalbuminemia Weakness * Antiemetics as ordered * Re-check AM labs * Keg Inspector consult * Obtain old records * PT/OT for weakness * CM/SW * PO Vancomycin * IV fluids as as ordered HLD (hyperlipidemia) HTN (hypertension) Fibromyalgia Arthritis * BP has been elevated (110-158 systolic) * Start daily amlodipine 2.5mg * Reconcile/review home medications Resolved: UTI (urinary tract infection) Dehydration Hypomagnesemia Code Status: Full code PCP: Dr. Bowman DVT Prophylaxis: Lovenox-> change to SCDs as patient has worsening anemia requiring transfusion Social: Patient lives in a house with her . They are talking about moving to and [facility] in [place]. She normally gets around without assistance but has been utilizing a cane because she is so weak. Disposition: Patient admitted observation status for management of dehydration, nausea, and awaiting blood cultures. Upgraded to inpatient on 08/07/20 as patient remains weak, nauseated, complains of abdominal pain, and had minimal improvement on labs. Patient may need to stay in about 1-2 more days because she was newly diagnosed with C. difficile colitis and GI bleeding
[2020-08-14] MEDS: PREDNISOLONE ACETATE 1% EYEBOTH SCH (10:46)
[2020-08-14] MEDS: CALCITONIN NAS SCH (10:48)
[2020-08-14] MEDS: CYCLOSPORINE EYEBOTH SCH (10:48)
[2020-08-14] MEDS: Iron Polysaccharides Complex 150 MG Cap PO SCH (10:50)
[2020-08-14] MEDS: Vancomycin 125 MG Cap PO SCH ×2 (10:50→14:48)
[2020-08-14] MEDS: Metoprolol Succinate 25 MG Tab.ER PO SCH (10:50)
[2020-08-14] MEDS: valACYclovir 1,000 MG Tab PO SCH (10:50)
[2020-08-14] MEDS: Multivitamins,Therapeutic Tab PO SCH (10:50)
[2020-08-14] MEDS: Sodium Bicarbonate 650 MG Tab PO SCH (10:51)
[2020-08-14] MEDS: Cholecalciferol (Vitamin D3) 25 MCG Tab PO SCH (10:51)
[2020-08-14] MEDS: Magnesium Oxide 400 MG Tab PO SCH (10:51)
[2020-08-14] MEDS: amLODIPine 2.5 MG Tab PO SCH (10:51)
[2020-08-14] MEDS: Losartan 50 MG Tab PO SCH (10:51)
[2020-08-14] MEDS: Ezetimibe 10 MG Tab PO SCH (10:51)
[2020-08-14] MEDS: Megestrol Susp 40 MG/ML 10 ML UD Cup PO SCH (10:51)
[2020-08-14] MEDS: GANCICLOVIR 0.15% EYELF SCH (10:51)
[2020-08-14] MEDS: Pantoprazole 40 MG Tab.CR PO SCH (10:51)
[2020-08-14] MEDS ORDERED: Benzocaine/Cetylpyridinium/Menthol Lozenge MUCMEM PRN (11:43)
--- NOTE | 2020-08-14 12:44 | PCM.DCSUM1 ---
Discharge Summary - Hospital Course HPI Initial Comments: This is an 85-year-old female who presents to ED via [place] [facility] on 08/06/2020 with complaints of urinary tract infection weakness. She reports she was diagnosed with a UTI on Thursday at the walk-in clinic and was prescribed cephalexin. She states she has been nauseous since then with decreased appetite, dehydration, weakness, and fatigue. She reports no p.o. intake since yesterday around noon. She reports she does have some residual UTI symptoms but they have greatly improved since starting her antibiotic. She also reports she has chronic diarrhea. She denies any recent fever, dyspnea, or cough. In the ED temp was 97.6 Fahrenheit. Pulse 97. Respirations 18. Blood pressure 154/69. Pulse ox 98%. Labs were obtained showing a WBC of 14.31. Hemoglobin of 11.3. Platelets of 415,000. Neutrophils are elevated at 10.90. INR was 1.02. Sodium 139. Potassium 4.1. Chloride 105. Carbon dioxide was low at 18. Anion gap was 20.1. BUN is 51. Creatinine 1.8. GFR was 27. Glucose 132. Lactic acid 1.0. Calcium 10.2. AST was 49, ALT 108, alkaline phosphatase 147. proBNP was 1268. Albumin was 3.3. Lipase was 186. UA was obtained and was negative however trace protein was noted. She was started on 2 g of IV Rocephin and given a 1 L fluid bolus. Also given Zofran for nausea. Blood cultures were obtained and were pending. SARS-CoV-2 RNA screen was negative. He carries a history of HLD, hypertension, arthritis, fibromyalgia. Primary care provider is Dr. Bowman. She subsequently admitted observation status for dehydration secondary to antibiotic intolerance and UTI. Diagnosis: Stroke: No - Discharge Data Discharge Date: 08/14/20 (Admit date: 08/06/20) Discharge Disposition: Home, W Home Health Agency 06 Condition: Good - Referral to Home Health Date of Face to Face Encounter: 08/14/20 Reason for Homebound Status: See discharge summary Primary Care Physician: Octavia Bowman MD Skilled Need: See discharge summary - Discharge Diagnosis/Problem(s) (1) UTI (urinary tract infection) SNOMED Code(s): 50523665 ICD Code: N39.0 - URINARY TRACT INFECTION, SITE NOT SPECIFIED Status: Resolved Priority: High Current Visit: Yes Qualifiers: Urinary tract infection type: acute cystitis Hematuria presence: without hematuria Qualified Code(s): N30.00 - Acute cystitis without hematuria (2) Nausea SNOMED Code(s): 503150903 ICD Code: R11.0 - NAUSEA Status: Resolved Priority: High Current Visit: Yes (3) Dehydration SNOMED Code(s): 68022311 ICD Code: E86.0 - DEHYDRATION Status: Resolved Priority: High Current Visit: Yes (4) HLD (hyperlipidemia) SNOMED Code(s): 79249056 ICD Code: E78.5 - HYPERLIPIDEMIA, UNSPECIFIED Status: Chronic Priority: Low Current Visit: No Qualifiers: Hyperlipidemia type: unspecified Qualified Code(s): E78.5 - Hyperlipidemia, unspecified (5) HTN (hypertension) SNOMED Code(s): 98356888 ICD Code: I10 - ESSENTIAL (PRIMARY) HYPERTENSION Status: Chronic Priority: Medium Current Visit: No Qualifiers: Hypertension type: unspecified Qualified Code(s): I10 - Essential (primary) hypertension (6) Fibromyalgia SNOMED Code(s): 597248058 ICD Code: M79.7 - FIBROMYALGIA Status: Chronic Priority: Low Current Visit: No (7) Arthritis SNOMED Code(s): 7701426 ICD Code: M19.90 - UNSPECIFIED OSTEOARTHRITIS, UNSPECIFIED SITE Status: Chronic Priority: Low Current Visit: No (8) Hypoalbuminemia SNOMED Code(s): 495198423 ICD Code: E88.09 - OTH DISORDERS OF PLASMA-PROTEIN METABOLISM, NEC Status: Acute Priority: High Current Visit: Yes (9) Weakness SNOMED Code(s): 18373140 ICD Code: R53.1 - WEAKNESS Status: Acute Priority: High Current Visit: Yes (10) Ryqsm-kl-[id number] kidney injury SNOMED Code(s): 112932261 ICD Code: N17.9 - ACUTE KIDNEY FAILURE, UNSPECIFIED; N18.9 - CHRONIC KIDNEY DISEASE, UNSPECIFIED Status: Acute Priority: High Current Visit: Yes Qualifiers: Acute renal failure type: unspecified Chronic kidney disease stage: stage 4 (severe) Qualified Code(s): N17.9 - Acute kidney failure, unspecified; N18.4 - Chronic kidney disease, stage 4 (severe) (11) Hypomagnesemia SNOMED Code(s): 963596936 ICD Code: E83.42 - HYPOMAGNESEMIA Status: Acute Priority: High Current Visit: Yes (12) Anemia SNOMED Code(s): 422399721 ICD Code: D64.9 - ANEMIA, UNSPECIFIED Status: Acute Priority: High Current Visit: Yes Qualifiers: Anemia type: unspecified type Qualified Code(s): D64.9 - Anemia, unspecified (13) C. difficile colitis SNOMED Code(s): 758571398 ICD Code: A04.72 - ENTEROCOLITIS D/T CLOSTRIDIUM DIFFICILE, NOT SPCF RECUR Status: Acute Priority: High Current Visit: Yes (14) Diarrhea SNOMED Code(s): 98882785 ICD Code: R19.7 - DIARRHEA, UNSPECIFIED Status: Acute Priority: High Current Visit: Yes Qualifiers: Diarrhea type: infectious Qualified Code(s): A09 - Infectious gastroenteritis and colitis, unspecified - Patient Summary/Data Consults: Consultations 08/06/20 13:46 Consult to Case Management/Early Intervention Specialist [CONS] Routine Consult to Building And Grounds Supervisor [CONS] Routine OT Evaluation and Treatment [CONS] Routine PT Evaluation and Treatment [CONS] Routine 08/10/20 12:23 Consult to Physician [CONS] Routine Labs Pending at D/C: None Recommended Follow-up Testing/Procedures: Recommend follow-up with primary care provider within 7-10 days of discharge, sooner if needed. -Recommend re-check CBC, CMP, and magnesium at that visit -Re-evaluate need for continued magnesium supplementation -Re-evaluate response to C. Diff treatment, need for continued PO vancomycin Hospital Course: Satya is an 85-year-old female who was admitted on 08/06/2020 after presenting to ED with urinary complaints, nausea, and decreased appetite. She reports she was diagnosed with a UTI in the walk-in clinic on 08/03/2020 and given cephalexin. Since that time she has had worsening nausea and vomiting with minimal p.o. intake. She is initially admitted observation status however symptoms continued with minimal improvement she was upgraded to inpatient. She responded well to IV fluids. Blood cultures were obtained and were negative. She was given antiemetics for nausea which did help. [facility] walk-in clinic notes were reviewed and showed pansensitive E. coli at 30,000 CFU's. Given Rocephin here at this was discontinued on 08/08/20 she had the treatment. Her hemoglobin continued to trend down and ultimately got down to 6.9. She was given 1 unit of PRBCs. Patient is on chronic p.o. iron supplementation so occult stool was unable to be obtained. Her white count was variable and blood smear initially showed 2+ macrocytosis eventually she was noted to have target cells, teardrop cells, and toxic granulation. Reticulocyte count was checked and was 2.13. Ultimately given her decreasing hemoglobin Dr. Green, general surgeon on-call was consulted. He suggested patient be switched from famotidine to a PPI and check patient for C. difficile. CT abdomen pelvis with IV and oral contrast was obtained with no acute change. Patient had reported longstanding history of chronic diarrhea. She is on cholestyramine and Imodium at home. Shortly after consultation patient was noted to have a very large melenic stool. Up until this point patient has had minimal bowel movements. Surprisingly C. difficile returned positive. Patient was started on on 125 mg 4 times daily oral vancomycin. She required 2 more units of packed red blood cells. Ultimately prior to discharge her hemoglobin did improve 10.9. Creatinine was at improved from what appears to be her baseline. Her magnesium was low and was supplemented. She will be discharged home on 25 more doses of p.o. vancomycin which will be a total of 10 days of treatment. She also be sent home on 5 more days of p.o. magnesium supplementation and 20 days of p.o. Protonix. She was instructed to stop taking her cholestyramine and Imodium as this can make symptoms worse. She can discuss with her primary care provider when to restart these. She was also advised to stop her famotidine while taking Protonix. Recommend patient follow-up with primary care provider within 7 to 10 days of discharge, sooner if needed. Recommend recheck CBC, CMP, and magnesium at that appointment. Patient and patient's were educated on transmission of C. difficile. They were advised to ensure proper handwashing and not to use hand regional airline pilot. They were advised to clean bathroom and calmly touch areas frequently with bleach water. They were advised that patient may require longer treatment if symptoms do not resolve. They were advised of dangers signs such as worsening dehydration, diarrhea, bloody or melanotic stool, or other signs of overall decompensation which would require patient to return to the emergency room. Per patient they are exploring moving to a assisted living facility in [place] which will be near family. This was encouraged. She was discharged home with home health services today. I personally met with Satya [id number] today prior to her discharge to discuss her homebound status. Patient was evaluated throughout her stay here by PT OT and our team feels that she would benefit from home health services. Patient and her both have difficulty with ambulation and weakness. They have difficulty with transportation. Because of this and her worsening weakness secondary to C. difficile infection it is thought patient would benefit from home health services. These include home health senior care for assistance with medications and overall disease progress monitoring, PT for strengthening, OT for strengthening and ADL training, and [facility] services for assistance with ADLs. The services can be monitored by the patient's primary care provider, Dr. Octavia Bowman, and adjusted as she sees fit. - Patient Instructions Diet: Usual Diet as Tolerated Activity: As Tolerated Driving: Do Not Drive Showering/Bathing: May Shower Notify Provider of: Fever, Increased Pain, Nausea and/or Vomiting Other/Special Instructions: Follow-up with primary care provider within 7-10 days of discharge, sooner if needed. You were prescribed oral vancomycin for your C. difficile infection. You should take this 4 times a day with your first dose today (08/14/20) at around 5pm. Pleated treatment for your UTI. You do not need to take the antibiotic you are taking prior to coming in after discharge. The only antibiotic you will be taking is oral vancomycin as directed. We have discontinued your cholestyramine and recommend you not take Imodium because of your C. difficile infection. These medications can diminish the effect of treatment and also worsen symptoms. Talk to your primary care provider as this improves if you feel you need to resume these. Your magnesium was low while here we gave you oral supplementation. This should be continued for 5 days. Your primary care provider can recheck your magnesium in follow-up and continue if needed. Your blood pressure was elevated here. Recommend you take your blood pressure twice daily and record this in a journal. Bring this journal with to all medical appointments. C. difficile is a bacteria that is currently overgrown your colon. It can be contagious and can lead to diarrhea for others. Unfortunately hand regional airline pilot alone does not kill this bacteria. You must wash your hands well with soap and water. Also this bacteria is not killed by many cleaning products. Recommend cleaning with bleach water. Recommend you pick a toilet in your house that is only yours and use that when you need to have a bowel movement. Recommend nobody else in your house use the toilet as this is how C. difficile can spread. You were also prescribed Protonix which is a proton pump inhibitor. You are on famotidine which can help with reflux but acts differently. Recommend you continue Protonix and discontinue famotidine for now due to your GI bleed. You may discuss in the future with restarting famotidine and stopping Protonix with your primary care provider once things resolve. Take it easy. It can take up to 2 months to feel back to normal after a C. difficile infection. Reinfection is common and you may notice diarrhea again after you finish treatment with oral vancomycin. Should this happen be sure to contact your primary care provider as you may need more treatment. Try to take good oral intake. Be cautious of becoming dehydrated again. Should symptoms return or worsen contact primary care provider or return to the emergency room. - Discharge Plan *PRESCRIPTION DRUG MONITORING PROGRAM REVIEWED*: No *COPY OF PRESCRIPTION DRUG MONITORING REPORT IN PATIENT JAQUAN: No Prescriptions/Med Rec: Magnesium Oxide 400 mg PO DAILY #5 tablet Pantoprazole [ProTONIX] 40 mg PO DAILY #20 tab.cr Vancomycin [Vancocin 125 MG Capsule] 125 mg PO QID #25 cap Home Medications: Home Meds Acetaminophen/Codeine [Tylenol with Codeine No.3 300MG/30MG] 1 tab PO Q8HR PRN 08/06/20 [History] Amitriptyline [Elavil] 25 mg PO BEDTIME 08/06/20 [History] Aspirin [Harry Chewable Aspirin] 81 mg PO DAILY 08/06/20 [History] Calcitonin (Fritch) [Miacalcin Nasal [place]] 1 spray SARAH DAILY 08/06/20 [History] Cholecalciferol (Vitamin D3) [Vitamin D3] 1,000 unit PO DAILY 08/06/20 [History] Dextran 70/Hypromellose [Artificial Tears] 1 - 2 drop EYEBOTH ASDIRECTED PRN 08/06/20 [History] Ezetimibe 10 mg PO DAILY 08/06/20 [History] Formula Liquid 1 dose PO ASDIRECTED 08/06/20 [History] Iron Polysaccharides-Vitamin C 1 cap PO DAILY 08/06/20 [History] Levothyroxine [Synthroid] 50 - 100 mcg PO ASDIRECTED 08/06/20 [History] Megestrol Acetate 10 ml PO DAILY 08/06/20 [History] Metoprolol Succinate [Toprol XL] 25 mg PO DAILY 08/06/20 [History] Multivitamin [Daily-Servando] 1 tab PO DAILY 08/06/20 [History] Olmesartan Medoxomil [Benicar] 20 mg PO DAILY 08/06/20 [History] Ondansetron [Zofran ODT] 4 mg PO Q6HR PRN 08/06/20 [History] Pravastatin [Pravachol] 10 mg PO BEDTIME 08/06/20 [History] Prednisolone Acetate/Pf [Prednisolone Acet 1% Eye Drop] 1 drop EYEBOTH ASDIRECTED 08/06/20 [History] Sodium Bicarbonate 650 mg PO BID 08/06/20 [History] cycloSPORINE [Restasis Multidose] 1 drop EYEBOTH BID 08/06/20 [History] hydroCHLOROthiazide [Hydrochlorothiazide] 25 mg PO DAILY 08/06/20 [History] valACYclovir [Valtrex] 2,000 mg PO DAILY 08/06/20 [History] Magnesium Oxide 400 mg PO DAILY #5 tablet 08/14/20 [Rx] Pantoprazole [ProTONIX] 40 mg PO DAILY #20 tab.cr 08/14/20 [Rx] Vancomycin [Vancocin 125 MG Capsule] 125 mg PO QID #25 cap 08/14/20 [Rx] Oxygen Therapy Mode: Room Air Patient Handouts: Clostridioides Difficile Infection, [id number], Nausea and Vomiting, Adult, [id number], Sepsis, Diagnosis, Adult, Dehydration, Adult, [id number] Forms: ED Department Discharge Referrals: Octavia Bowman MD [Primary Care Provider] - 08/27/20 9:00 am (Hospital follow-up appointment.) - Discharge Summary/Plan Comment DC Time >30 min.: Yes (45 mins) - General Info Date of Service: 08/14/20 Admission Dx/Problem (Free Text: Dehydration Functional Status: Reports: Pain Controlled, Tolerating Diet, Ambulating, Urinating. Denies: New Symptoms - Review of Systems General: Reports: Weakness. Denies: Fever, Fatigue, Malaise, Chills HEENT: Reports: No Symptoms. Denies: Headaches, Sore Throat Pulmonary: Reports: No Symptoms. Denies: Shortness of Breath, Cough, Sputum, Wheezing Cardiovascular: Reports: No Symptoms. Denies: Chest Pain, Palpitations, Dyspnea on Exertion, Lightheadedness Gastrointestinal: Reports: Diarrhea (improving ), Melena (improving (patient is also on iron supplementation at baseline). Denies: Abdominal Pain, Constipation, Difficulty Swallowing, Nausea, Vomiting Genitourinary: Reports: No Symptoms. Denies: Pain Musculoskeletal: Reports: No Symptoms Skin: Reports: No Symptoms. Denies: Cyanosis Neurological: Reports: Difficulty Walking, Weakness, Gait Disturbance. Denies: Confusion Psychiatric: Reports: No Symptoms. Denies: Confusion - Patient Data Vitals - Most Recent: Last Vital Signs Temp 98.4 F 08/14/20 10:40 Pulse 100 08/14/20 10:50 Resp 16 08/14/20 10:40 BP 154/68 H 08/14/20 10:51 Pulse Ox 100 08/14/20 10:40 Weight - Most Recent: 103 lb 1.6 oz I&O - Last 24 hours: Intake & Output 08/13/20 08/14/20 08/14/20 22:59 06:59 14:59 Intake Total 1321 650 200 Output Total 800 Balance 521 650 200 Lab Results - Last 24 hrs: Laboratory Results - last 24 hr 08/14/20 08/14/20 Range/Units 06:58 06:58 WBC 12.85 H (3.98-10.04) K/mm3 RBC 3.51 L (3.98-5.22) M/mm3 Hgb 10.9 L (11.2-15.7) gm/dl Hct 33.7 L (34.1-44.9) % MCV 96.0 H (79.4-94.8) fl MCH 31.1 (25.6-32.2) pg MCHC 32.3 (32.2-35.5) g/dl RDW Std Deviation 65.3 H (36.4-46.3) fL Plt Count 301 (182-369) K/mm3 MPV 10.1 (9.4-12.3) fl Neut % (Auto) 57.9 (34.0-71.1) % Lymph % (Auto) 24.0 (19.3-51.7) % Armstrong % (Auto) 12.0 (4.7-12.5) % Eos % (Auto) 5.2 (0.7-5.8) Baso % (Auto) 0.3 (0.1-1.2) % Neut # (Auto) 7.43 H (1.56-6.13) K/mm3 Lymph # (Auto) 3.09 (1.18-3.74) K/mm3 Armstrong # (Auto) 1.54 H (0.24-0.36) K/mm3 Eos # (Auto) 0.67 H (0.04-0.36) K/mm3 Baso # (Auto) 0.04 (0.01-0.08) K/mm3 Manual Slide Review Abnormal smear Sodium 142 (136-145) mEq/L Potassium 4.2 (3.5-5.1) mEq/L Chloride 110 H (98-107) mEq/L Carbon Dioxide 22 (21-32) mEq/L Anion Gap 14.2 (5-15) BUN 19 H (7-18) mg/dL Creatinine 1.1 H (0.55-1.02) mg/dL Est Cr Clr Drug Dosing 26.37 mL/min Estimated GFR (MDRD) 47 (>60) mL/min BUN/Creatinine Ratio 17.3 (14-18) Glucose 87 (83-115) mg/dL Calcium 8.9 (8.5-10.1) mg/dL Magnesium 2.0 (1.8-2.4) mg/dl Total Bilirubin 0.7 (0.2-1.0) mg/dL AST 22 (15-37) U/L ALT 31 (14-59) U/L Alkaline Phosphatase 64 (46-116) U/L Total Protein 5.6 L (6.4-8.2) g/dl Albumin 2.5 L (3.4-5.0) g/dl Globulin 3.1 gm/dL Albumin/Globulin Ratio 0.8 L (1-2) LIANA Results - Last 24 hrs: Microbiology 08/06/20 12:00 Aerobic Blood Culture - Final Blood - Venous NO GROWTH AFTER 7 DAYS Anaerobic Blood Culture - Final 08/06/20 12:05 Aerobic Blood Culture - Final Blood - Venous - Lab Draw NO GROWTH AFTER 7 DAYS Anaerobic Blood Culture - Final NO GROWTH AFTER 7 DAYS Med Orders - Current: Current Medications Acetaminophen (Tylenol) 650 mg PO Q6H PRN PRN Reason: Pain (Mild 1-3)/fever Acetaminophen/Codeine Phosphate (Tylenol With Codeine No.3 300mg/30mg) 1 tab PO Q8H PRN PRN Reason: Pain Amitriptyline HCl (Elavil) 25 mg PO BEDTIME [facility] Last Admin: 08/13/20 21:25 Dose: 25 mg Documented by: Amlodipine Besylate (Norvasc) 2.5 mg PO DAILY [facility] Last Admin: 08/14/20 10:51 Dose: 2.5 mg Documented by: Artificial Tears (Refresh Liquigel 1%) 1 - 2 ml EYEBOTH ASDIRECTED PRN PRN Reason: Dry Eyes Benzocaine/Menthol (Cepacol Sore Throat) 1 lozenge MUCMEM Q2H PRN PRN Reason: Sore Throat Last Admin: 08/14/20 11:56 Dose: 1 lozenge Documented by: Cholecalciferol (Vitamin D3) 25 mcg PO DAILY [facility] Last Admin: 08/14/20 10:51 Dose: 25 mcg Documented by: Cholestyramine Resin (Cholestyramine Packet) 4 gm PO DAILY@0700 [facility] Last Admin: 08/14/20 06:24 Dose: 4 gm Documented by: Ezetimibe (Zetia) 10 mg PO DAILY [facility] Last Admin: 08/14/20 10:51 Dose: 10 mg Documented by: Levothyroxine Sodium (Synthroid) 50 mcg PO MoTuWeThFrSa@0600 [facility] Last Admin: 08/14/20 06:24 Dose: 50 mcg Documented by: Levothyroxine Sodium (Synthroid) 100 mcg PO Naranjo@0600 [facility] Last Admin: 08/12/20 06:21 Dose: 100 mcg Documented by: Loperamide HCl (Imodium) 2 mg PO Q12HR PRN PRN Reason: Diarrhea Last Admin: 08/10/20 09:03 Dose: 2 mg Documented by: Losartan Potassium (Cozaar) 50 mg PO DAILY [facility] Last Admin: 02/09/21 10:51 Dose: 50 mg Documented by: Magnesium Oxide (Magnesium Oxide) 400 mg PO DAILY [facility] Last Admin: 08/14/20 10:51 Dose: 400 mg Documented by: Megestrol Acetate (Megace 40 Mg/Ml Susp) 400 mg PO DAILY [facility] Last Admin: 08/14/20 10:51 Dose: 400 mg Documented by: Metoprolol Succinate (Toprol Xl) 25 mg PO DAILY [facility] Last Admin: 08/14/20 10:50 Dose: 25 mg Documented by: Miscellaneous Information (Remove Patch) 0 ea TRDERM Q72H [facility] Last Admin: 08/13/20 16:19 Dose: Not Given Documented by: Multivitamins (Thera) 1 each PO DAILY [facility] Last Admin: 08/14/20 10:50 Dose: 1 each Documented by: Ganciclovir Ophth (Gel 0.15% Ptom) 0 each EYELF BID [facility] Last Admin: 08/14/20 10:51 Dose: 1 each Documented by: Ondansetron HCl (Zofran) 4 mg IV Q6H PRN PRN Reason: Nausea/Vomiting Last Admin: 08/07/20 04:06 Dose: 4 mg Documented by: Pantoprazole Sodium (Protonix) 40 mg PO DAILY [facility] Last Admin: 08/14/20 10:51 Dose: 40 mg Documented by: Calcitonin (Fritch) Nasal [place] Patient's Own Med 0 each SARAH DAILY [facility] Last Admin: 08/14/20 10:48 Dose: 1 each Documented by: Cyclosporine [ Restasis Ophth Drops ] Patient's Own Med 0 each EYEBOTH BID [facility] Last Admin: 08/14/20 10:48 Dose: 1 each Documented by: Polysaccharide Iron Complex (Ferrex 150) 150 mg PO DAILY [facility] Last Admin: 08/14/20 10:50 Dose: 150 mg Documented by: Prednisolone Acetate (Pred Forte 1% Ophth Susp) 0 ml EYEBOTH BID [facility] Last Admin: 08/14/20 10:46 Dose: 1 drop Documented by: Scopolamine (Transderm-Scop) 1.5 mg TRDERM Q72H [facility] Last Admin: 08/13/20 16:23 Dose: 1.5 mg Documented by: Sodium Bicarbonate (Sodium Bicarbonate) 650 mg PO BID [facility] Last Admin: 08/14/20 10:51 Dose: 650 mg Documented by: Sodium Chloride (Saline Flush) 10 ml FLUSH ASDIRECTED PRN PRN Reason: Keep Vein Open Last Admin: 08/10/20 14:17 Dose: 10 ml Documented by: Valacyclovir HCl (Valtrex) 1,000 mg PO DAILY [facility] Last Admin: 08/14/20 10:50 Dose: 1,000 mg Documented by: Vancomycin HCl (Vancocin 125 Mg Capsule) 125 mg PO QID [facility] Last Admin: 08/14/20 10:50 Dose: 125 mg Documented by: Discontinued Medications Acetaminophen (Tylenol) 650 mg PO Q4H PRN PRN Reason: Pain (Mild 1-3)/fever Acetaminophen/Codeine Phosphate (Tylenol With Codeine No.3 300mg/30mg) 1 tab PO Q8H PRN PRN Reason: Pain Amitriptyline HCl (Elavil) 25 mg PO BEDTIME [facility] Amitriptyline HCl (Elavil) 25 mg PO BEDTIME [facility] Last Admin: 08/06/20 20:36 Dose: 25 mg Documented by: Amlodipine Besylate (Norvasc) 2.5 mg PO DAILY [facility] Last Admin: 08/13/20 09:35 Dose: Not Given Documented by: Aspirin (Aspirin) 81 mg PO DAILY [facility] Last Admin: 08/10/20 08:42 Dose: 81 mg Documented by: Cholestyramine Resin (Cholestyramine Packet) 4 gm PO DAILY [facility] Diphenhydramine HCl (Benadryl) 12.5 mg IVPUSH ONETIME ONE Stop: 08/10/20 13:51 Last Admin: 08/10/20 13:58 Dose: 12.5 mg Documented by: Ezetimibe (Zetia) 10 mg PO DAILY [facility] Last Admin: 08/07/20 08:47 Dose: 10 mg Documented by: Enoxaparin Sodium (Lovenox) 30 mg SUBCUT Q24H [facility] Last Admin: 08/08/20 09:41 Dose: Not Given Documented by: Famotidine (Pepcid) 20 mg PO DAILY [facility] Last Admin: 08/07/20 08:42 Dose: 20 mg Documented by: Famotidine (Pepcid) 20 mg PO DAILY [facility] Last Admin: 08/10/20 08:42 Dose: 20 mg Documented by: Ceftriaxone Sodium 2 gm/ (Sodium Chloride) 100 mls @ 200 mls/hr IV ONETIME ONE Stop: 08/06/20 11:42 Last Admin: 08/06/20 12:12 Dose: 200 mls/hr Documented by: Sodium Chloride (Normal Saline) 1,000 mls @ 1,000 mls/hr IV .BOLUS STA Stop: 08/06/20 12:10 Last Admin: 08/06/20 11:30 Dose: 1,000 mls/hr Documented by: Ceftriaxone Sodium 2 gm/ (Sodium Chloride) 100 mls @ 200 mls/hr IV Q24H STEVE Lactated Ringer's (Ringers, Lactated) 1,000 mls @ 50 mls/hr IV ASDIRECTED STEVE Stop: 08/07/20 09:59 Last Infusion: 08/07/20 10:12 Dose: 100 mls/hr Documented by: Ceftriaxone Sodium 1 gm/ (Sodium Chloride) 100 mls @ 200 mls/hr IV Q24H STEVE Last Admin: 08/07/20 11:59 Dose: 200 mls/hr Documented by: Magnesium Sulfate (Magnesium Sulfate In Water 2 Gm/50 Ml) 2 gm in 50 mls @ 25 mls/hr IV ONETIME ONE Stop: 08/07/20 09:59 Last Admin: 08/07/20 08:53 Dose: 25 mls/hr Documented by: Promethazine HCl 12.5 mg/ (Sodium Chloride) 50.5 mls @ 100 mls/hr IV ONETIME ONE Stop: 08/07/20 10:30 Last Admin: 08/07/20 11:02 Dose: 100 mls/hr Documented by: Lactated Ringer's (Ringers, Lactated) 1,000 mls @ 100 mls/hr IV ASDIRECTED STEVE Last Admin: 08/07/20 23:45 Dose: 100 mls/hr Documented by: Lactated Ringer's (Ringers, Lactated) 1,000 mls @ 50 mls/hr IV ASDIRECTED STEVE Sodium Chloride (Normal Saline) 250 mls @ 100 mls/hr IV ASDIRECTED STEVE Last Admin: 08/08/20 13:39 Dose: 100 mls/hr Documented by: Multivitamins/Minerals 10 ml/ (Dextrose/Lactated Ringer's) 1,010 mls @ 50 mls/hr IV ASDIRECTED STEVE Last Admin: 08/11/20 10:40 Dose: 50 mls/hr Documented by: Sodium Chloride (Normal Saline) 250 mls @ 100 mls/hr IV ASDIRECTED [facility] Last Admin: 08/12/20 08:49 Dose: 100 mls/hr Documented by: Lactated Ringer's (Ringers, Lactated) 1,000 mls @ 50 mls/hr IV ASDIRECTED [facility] Last Admin: 08/13/20 12:12 Dose: 50 mls/hr Documented by: Magnesium Sulfate (Magnesium Sulfate In Water 2 Gm/50 Ml) 2 gm in 50 mls @ 25 mls/hr IV ONETIME ONE Stop: 08/13/20 10:44 Last Admin: 08/13/20 09:20 Dose: 25 mls/hr Documented by: Iopamidol (Isovue-300 (61%)) 100 ml IVPUSH ONETIME ONE Stop: 08/10/20 13:39 Last Admin: 08/10/20 14:17 Dose: 100 ml Documented by: Levothyroxine Sodium (Synthroid) 50 mcg PO [id number] [facility] Last Admin: 08/07/20 06:36 Dose: 50 mcg Documented by: Levothyroxine Sodium (Synthroid) 100 mcg PO [email or web address]@[id number] [facility] Metoprolol Succinate (Toprol Xl) 25 mg PO DAILY [facility] Last Admin: 08/07/20 08:46 Dose: 25 mg Documented by: Ondansetron HCl (Zofran) 4 mg IVPUSH ONETIME ONE Stop: 08/06/20 11:12 Last Admin: 08/06/20 11:30 Dose: 4 mg Documented by: Olmesartan Medoxomil 20 Mg Patient's Own Med 0 each PO DAILY [facility] Last Admin: 08/07/20 08:44 Dose: 1 each Documented by: Prednisolone Acetate (Pred Forte 1% Ophth Susp) 0 ml EYELF 6XDAY [facility] Last Admin: 08/06/20 20:36 Dose: 1 drop Documented by: Sodium Bicarbonate (Sodium Bicarbonate) 650 mg PO BID [facility] Last Admin: 08/07/20 08:45 Dose: 650 mg Documented by: Sodium Chloride (Saline Flush) 10 ml FLUSH ASDIRECTED [facility] Stop: 08/10/20 18:00 Valacyclovir HCl (Valtrex) 1,000 mg PO DAILY [facility] Last Admin: 02/02/21 08:47 Dose: 1,000 mg Documented by: - Exam Quality Assessment: Reports: DVT Prophylaxis. Denies: Supplemental Oxygen, Urine Catheter General: Reports: Alert, Oriented, Cooperative, No Acute Distress HEENT: Reports: Pupils Equal, Pupils Reactive, Mucous Membr. Moist/[place] Neck: Reports: Supple, Trachea Midline Lungs: Reports: Clear to Auscultation, Normal Respiratory Effort Cardiovascular: Reports: Regular Rate, Regular Rhythm GI/Abdominal Exam: Normal Bowel Sounds, Soft, Non-Tender, No Distention (Female) Exam: Deferred Rectal (Female) Exam: Deferred Back Exam: Reports: Normal Inspection, Full Range of Motion Extremities: Normal Inspection, Normal Range of Motion, Non-Tender, No Pedal Edema, Normal Capillary Refill Skin: Reports: Warm, Dry, Intact Neurological: Reports: No New Focal Deficit Psy/Mental Status: Reports: Alert, Normal Affect, Normal Mood
[2020-08-14 15:33] VITALS: BP 146/53; PULSE 94
== END 2020-08-14 17:50 | disposition home health service (06) | DRG 372 ==
LOC: JD.ED 10:44 → JD.MS 13:29 → OBSVTOIN 08-07 09:31
PROVIDERS: ADMIT Family Medicine; ATTEND Family Medicine
PROC: 30233N1 Transfusion of Nonautologous Red Blood Cells into Peripheral Vein, Percutaneous Approach (ICD-10-PCS; principal; 2020-08-07)
DX: A04.72 Enterocolitis due to Clostridium difficile, not specified as recurrent (principal); N30.00 Acute cystitis without hematuria; R11.0 Nausea; N17.9 Acute kidney failure, unspecified; N18.4 Chronic kidney disease, stage 4 (severe); A09 Infectious gastroenteritis and colitis, unspecified; E78.5 Hyperlipidemia, unspecified; M19.90 Unspecified osteoarthritis, unspecified site; M79.7 Fibromyalgia; E86.0 Dehydration; Z91.013 Allergy to seafood; I12.9 Hypertensive chronic kidney disease with stage 1 through stage 4 chronic kidney disease, or unspecified chronic kidney disease; D63.1 Anemia in chronic kidney disease; K52.9 Noninfective gastroenteritis and colitis, unspecified; Z20.822 Contact with and (suspected) exposure to COVID-19; E88.09 Other disorders of plasma-protein metabolism, not elsewhere classified; R53.1 Weakness; E83.42 Hypomagnesemia; E78.00 Pure hypercholesterolemia, unspecified; Z79.82 Long term (current) use of aspirin; Z79.899 Other long term (current) drug therapy; Z79.890 Hormone replacement therapy; Z90.710 Acquired absence of both cervix and uterus; Z88.7 Allergy status to serum and vaccine; Z91.041 Radiographic dye allergy status
CPT/HCPCS: 36415 ×2; 80053 ×2; 81001; 82553; 83605; 83690; 83735; 83880; 84484; 85025 ×2; 85610; 87040 ×2; 96365; 96375; 97165; 99285; A9270 ×15; J0696; J1650; J2405 ×3; J3475; J7030; J7120; U0002; 36430; 71046; 71046-26; 74177; 74177-26; 84145; 85014; 85018; 85045; 86140; 86850; 86900; 86901; 86922; 87324; 87493; 97110-GP; 97116-GP; 97162-GP; 97530-GP; 99220; 99232; 99233; 99239; 99284; J1200; J2550; J7050; J7121; P9016; Q9967